=== PATIENT | female | born 1965 | race American Indian/Alaskan Native ===

== ENCOUNTER 2016-11-02 08:59 | Day surgery (SDC) | payer BC ==
[2016-11-02 10:16] VITALS: BMI 25.1
[2016-11-02] MEDS ORDERED: MethylPREDNISolone Depo 40 mg/ml Inj ONE (11:49)
[2016-11-02] MEDS ORDERED: Ketamine 50 mg/ml Inj (10 ml) ONE (11:50)
[2016-11-02] MEDS ORDERED: Propofol 10 mg/ml Inj (20 ML) ONE (11:50)
[2016-11-02] MEDS ORDERED: Midazolam 2 MG/2 ML VIAL ONE (11:50)
[2016-11-02] MEDS ORDERED: Iohexol 300 10 ML ONE (11:50)
[2016-11-02] MEDS ORDERED: Lactated Ringer's 1,000 ML IV ONE ×2 (12:00)
[2016-11-02] MEDS: Bupivacaine HCl 0.25% PF (30 ml) Inj ONE ×2 (12:19→12:25)
[2016-11-02] MEDS: Lidocaine 1% Inj (20ml) ONE ×2 (12:19→12:25)
[2016-11-02] MEDS ORDERED: DiphenhydrAMINE 50 mg/ml Inj IVP PRN (12:55)
[2016-11-02] MEDS ORDERED: HYDROmorphone 0.5 mg/0.5 ml ISec IVP PRN (12:55)
[2016-11-02] MEDS ORDERED: HYDROmorphone 0.5 mg/0.5 ml ISec ONE (12:56)
[2016-11-02 13:08] VITALS: RESP 18
[2016-11-02] MEDS ORDERED: HYDROmorphone 0.5 mg/0.5 ml ISec IVP ONE ×5 (13:15→14:05)
--- NOTE | 2016-11-02 13:18 | OP ---
PROCEDURE DATE: 11/02/2016 PREOPERATIVE DIAGNOSIS: Chronic lumbar laminectomy pain syndrome. POSTOPERATIVE DIAGNOSES: 1. Chronic lumbar laminectomy pain syndrome. 2. Myofascial pain syndrome. PROCEDURE: 1. Caudal epidural steroid injection with fluoroscopy. 2. Trigger point injections x 4 in the lumbar paravertebral area. DESCRIPTION OF PROCEDURE: With the patient consent signed, she was asked to assume a prone position with pillow under her pelvis. The low back area and the sacrococcygeal area was prepped in the usual sterile fashion. The sacral cornu and sacral hiatus was palpated. Skin infiltration and incision w as done using 1% Xylocaine with 25 gauge needle. Using the needle as a guide to the sacral hiatus, a n epidural Tuohy needle 22-gauge was injected into the sacral hiatus and into the epidural space, génesis ified by loss of resistance technique and verified by injection of 1 mL of 300 Omnipaque solution. A P and lateral view of the spine was taken. Satisfied with the location of the needle and of the dye and after negative aspiration test, a solution consisting of 80 mg Depo-Medrol with 20 mL of 0.125% S ensorcaine was injected slowly into the epidural space. The needle was then withdrawn. Bandage appl ied to the area. The patient tolerated this procedure well under light IV sedation anesthesia by Dr. Fox. Sent to the recovery room in good, stable condition. Rashaun Carpio MD cc: [phone] TT: 11/02/2016 13:17:27 sn
[2016-11-02] MEDS ORDERED: Oxycodone/Acetaminophen 5/325 mg Tab PO PRN (14:15)
--- NOTE | 2016-11-02 15:02 | RAD ---
PROCEDURE: Fluoroscopy 11/02/2016 HISTORY: Pain management ; epidural injection FINDINGS: Fluoroscopic assistance provided during pain management procedure. Approximately 34.8 seconds of fluoroscopy time utilized during this procedure. Please refer to operative report for additional details.
[2016-11-02 15:16] VITALS: O2SAT 99
[2016-11-02 16:52] VITALS: BP 153/96; PULSE 84; TEMP 97.1
== END 2016-11-02 16:50 | disposition hospice, home (50) ==
LOC: H.OPSURG 08:59
PROVIDERS: ATTEND Anesthesiology
DX: M79.1 Myalgia (principal); G89.4 Chronic pain syndrome; J45.909 Unspecified asthma, uncomplicated; E66.9 Obesity, unspecified; M19.90 Unspecified osteoarthritis, unspecified site
CPT/HCPCS: 20553; 62323; J1030; J1170; J2001; J2250; J2704; J3010; J7120; Q9967

== ENCOUNTER 2017-01-25 08:34 | Day surgery (SDC) | payer BC ==
[2017-01-25 09:03] VITALS: RESP 18; BMI 27.8
[2017-01-25] MEDS ORDERED: Propofol 10 mg/ml Inj (20 ML) ONE (11:39)
[2017-01-25] MEDS ORDERED: MethylPREDNISolone Depo 40 mg/ml Inj ONE ×2 (11:46→13:32)
[2017-01-25] MEDS ORDERED: Iohexol 300 10 ML ONE (11:47)
[2017-01-25] MEDS ORDERED: Bupivacaine HCl 0.25% PF (30 ml) Inj ONE (11:47)
[2017-01-25] MEDS ORDERED: Lidocaine 1% Inj (20ml) ONE (11:47)
[2017-01-25] MEDS ORDERED: Lidocaine 1% Inj (20ml) IV ONE (12:10)
[2017-01-25] MEDS ORDERED: MethylPREDNISolone Depo 40 mg/ml Inj IM ONE (12:10)
[2017-01-25] MEDS ORDERED: Iohexol 300 10 ML IJ ONE ×2 (12:10)
[2017-01-25] MEDS ORDERED: Bupivacaine HCl 0.5% PF (30 ml) Inj IJ ONE ×2 (12:10)
[2017-01-25] MEDS ORDERED: Lactated Ringer's 1,000 ML IV SCH (12:27)
[2017-01-25] MEDS: HYDROmorphone 0.5 mg/0.5 ml ISec IVP PRN ×4 (12:40→13:25)
[2017-01-25] MEDS ORDERED: Lactated Ringer's 1,000 ML IV ONE (13:35)
--- NOTE | 2017-01-25 13:38 | RAD ---
PROCEDURE: Fluoroscopy up to 1 hr. HISTORY: PAIN MANAGEMENT COMPARISON: None TECHNIQUE: Standard protocol for this study/examination. FINDINGS: Total fluoroscopic time (continuous mode) utilized during the procedure: 16.2 IMPRESSION: Submitted images from the current procedure: 6.0
[2017-01-25 15:27] VITALS: O2SAT 97
[2017-01-25 17:05] VITALS: BP 121/56; PULSE 69; TEMP 97.5
--- NOTE | 2017-01-26 01:13 | OP ---
PROCEDURE DATE: 01/25/2017 PREOPERATIVE DIAGNOSIS: Chronic lumbar laminectomy pain syndrome. POSTOPERATIVE DIAGNOSIS: Chronic lumbar laminectomy pain syndrome. PROCEDURE: Caudal epidural steroid injection with fluoroscopy. DESCRIPTION OF PROCEDURE: The patient's consent signed. She was asked to assume prone position with a pillow under her pelvis. The buttocks and coccygeal area were prepped in the usual sterile fashion. The sacral hiatus was palpated. Skin and subcutaneous anesthesia was done using 1% Xylocaine with 25-gauge needle into the sacral hiatus. Using a 20-gauge Tuohy epidural needle, the needle was inserted into the sacral hiatus and into the epidural space. With the aid of loss of resistance technique, verified by injection of 6 mL of Omnipaque-300 solution. AP and lateral view of the spine was taken, and after satisfied with the position of the needle and after a negative aspiration, solution consisting of 15 mL of 0.25% Sensorcaine with 80 mg of Depo-Medrol was injected slowly into the epidural space. The needle was then withdrawn and Band-Aid applied to the area. The patient tolerated the procedure well under the IV sedation anesthesia by Dr. Miranda. She was then sent to the recovery room in good and stable condition. Rashaun Carpio MD
== END 2017-01-25 18:10 | disposition home or self-care (01) ==
LOC: H.OPSURG 08:34
PROVIDERS: ATTEND Anesthesiology
DX: M54.5 Low back pain (principal); J45.909 Unspecified asthma, uncomplicated; F41.9 Anxiety disorder, unspecified
CPT/HCPCS: 62322; J1030; J1170; J2001; J2704; J7120; Q9967

== ENCOUNTER 2017-04-26 14:43 | Inpatient (IN) | payer BC, MEDICARE ==
--- NOTE | 2017-04-26 14:57 | ED PDOC ---
HPI:STROKE - Time Time: 14:25 - Historian Historian: Patient (and nursing in recovery) - Chief Complaint Chief Complaint: Weakness, Facial droop, Arm weakness, Leg weakness - Onset Date: 04/26/17 Time: 14:25 - Timing Timing: Currently Symptomatic - Context Context: Other (patient was in this facility receiving a sacral epidural) - Location Locate right:: Upper extremity Locate left: Face - TPA Positive for Contraindication: Yes Reason tPA is not being Administered: epidural and unclear if seizure as discussed with neurology Dr. Munoz - Notes: Notes:: 51yo female with past medical history of chronic pain, CVA and anxiety per prior records, brought to the ED for evaluation of a possible stroke with onset at 14:25. Patient accompanied by nurse who reports the patient was in this facility for a sacral epidural, was normal and interacting well. She states the patient was given Ketamine and when she came to, she was normal with no neurological deficits. Nurse then states at 14:25 she noticed a left lower facial droop as well as right upper extremity weakness. Per patient's prior records, there is a questionable history of right sided upper and lower extremities weakness. NIHSS Stroke Scale - Date/Time Evaluation Performed Date Performed: 04/26/17 Time Performed: 15:07 When Was NIHSS Performed: Baseline - How Severe is the Stroke Level of Consciousness: 0=Alert LOC to Questions: 0=Both comments correct LOC to commands: 0=Obeys both correctly Best Gaze: 0=Normal Visual: 0=No visual loss Facial: 2=Partial (lower face paralysis) Motor Arm - Left: 1=Drift noted before 10 sec Motor Arm - Right: 0=No drift Motor Leg - Left: 2=Falls before 5 sec Motor Leg - Right: 2=Falls before 5 sec Limb Ataxia: 2=Present both Sensory: 0=Normal Best Language: 0=No aphasia Dysarthia: 1=Mild to moderate slurring Extinction & Inattention (Neglect): 0=Normal, no object Score: 10 rTPA Inclusion/Exclusion - Refusal of Treatment Patient Refused Treatment: No - Inclusion Criteria for Altepase Patient is 18 years or Older: Yes The Clinical Diagnosis of Ischemic Stroke That is Causing a Potentially Disabling Neurological Deficit: No Time of Onset is Well Established to be Less Than 270 Minute Before Treatment Would Begin: Yes Risk/Benefit Discussed With Patient/Family Member Present: No Past Medical History Reviewed: Historical Data, Nursing Documentation, Vital Signs - Medical History PMH: Anxiety, Asthma, Back Problems, CVA, Depression, Migraine, Sickle Cell Disease, TIA (x3) Denies: Arthritis, CHF, COPD, HTN, Hypercholesterolemia, Hypothyroidism, Chronic Kidney Disease, Rheumatoid Arthritis - Surgical History Other surgeries: lumbar fusion and rods - Family History Family History: States: No Known Family Hx - Immunization History Hx Tetanus Toxoid Vaccination: No Hx Influenza Vaccination: No Hx Pneumococcal Vaccination: No - Home Medications Home Medications: Ambulatory Orders Medication Instructions Recorded Methadone [Methadone HCl] 20 mg PO TID 04/23/14 Alprazolam [Xanax] 2 mg PO BID 08/27/16 Oxycodone HCl [Oxycontin] 160 mg PO Q12H 08/27/16 Oxycodone HCl [Roxicodone] 60 mg PO Q6H PRN 08/27/16 Meloxicam [Mobic] 15 mg PO DAILY 04/26/17 - Allergies Allergies/Adverse Reactions: Allergies Allergy/AdvReac Type Severity Reaction Status Date / Time ketorolac Allergy Mild RASH Verified 04/26/17 15:12 ketorolac tromethamine Allergy RASH Verified 04/26/17 15:12 [From Toradol] Penicillins Allergy SWELLING Verified 04/26/17 15:12 morphine AdvReac ITCHING Verified 04/26/17 15:12 Review of Systems ROS Statement: Except As Marked, All Systems Reviewed And Found Negative Neurological: Positive for: Weakness (left upper extremity), Numbness, Change in Speech (slurred speech), Other (left lower facial droop) Physical Exam - Reviewed Nursing Documentation Reviewed: Yes Vital Signs Reviewed: Yes - Physical Exam Appears: Positive for: Uncomfortable Head Exam: Positive for: ATRAUMATIC, NORMAL INSPECTION, NORMOCEPHALIC Skin: Positive for: Normal Color, Warm Eye Exam: Positive for: Normal appearance, EOMI, PERRL ENT: Negative for: Nasal Congestion, Pharyngeal Erythema Neck: Positive for: Normal, Painless ROM, Supple Cardiovascular/Chest: Positive for: Regular Rate, Rhythm Respiratory: Positive for: Normal Breath Sounds. Negative for: Wheezing Gastrointestinal/Abdominal: Positive for: Soft. Negative for: Tenderness Back: Positive for: Normal Inspection. Negative for: L CVA Tenderness, R CVA Tenderness Extremity: Negative for: Normal ROM (decreased ROM due to pain lower extremities ), Tenderness, Pedal Edema, Deformity, Swelling Neurologic/Psych: Positive for: Alert, desktop support consultant II-XII (intact except lower facial palsy left), Oriented, Motor/Sensory Deficits (bilateral lower extremities 1/5 motor strength due to pain; right upper extremity 2/5 and left upper extremity 4 /5 motor strength), Facial Droop (left lower facial droop). Negative for: Mood/ Affect, Aphasia - Laboratory Results Result Diagrams: 04/26/17 15:01 04/26/17 15:01 Interpretation Of Abn Labs: no acute - ECG ECG: Positive for: Interpreted By Me, Viewed By Me ECG Rhythm: Positive for: Sinus Rhythm, Nonspecific Changes - Radiology X-Ray: Interpreted by Me, Viewed By Me X-Ray Interpretation: No Acute Disease - Progress ED Course And Treament: 1512: Dr. Munoz for neurology paged 1512. Message left on his cellphone. His office gave the number [phone]. 1522: Spoke with Dr. Munoz. Made aware of presentation, history, procedure performed, ketamine hx, past hx of cva, current clinical exam, past exam per notes, and all details. States pt. had epidural so can be high risk of bleed and pt. could have a seizure, so no thrombolytics at this time. Wants further eval and monitoring. Will come see pt. 1525: Dr. Carpio, who did epidural, states was a cuadal block. He states pt. has a hx of a bells palsy in the past to the left side but he did not notice any bells today. 1615: Pt. complains of back pain and her chronic pain flares. No narcotics at this time. Pending neurology eval. Spoke with Dr. Montero, who will admit. Spoke with Dr. Courtney. Will admit ICU. - Critical Care Total Time (In Min): 30 Documented Critical Care: Time excludes all time spent performint seperately billable procedures Medical Decision Making Medical Decision Making: Impression: Left lower facial droop, right upper extremity weakness; r/o CVA Plan: -- CT Head -- EKG -- Labs -- CXR Time: 1510 CT Head IMPRESSION: No acute intracranial abnormality. If there is a persistent focal neurologic deficit and an ongoing clinical concern for acute infarction, an MRI of the brain without intravenous contrast would be a more sensitive modality for evaluation of hyperacute/acute ischemic infarction. Important findings were discussed with Dr. Colunga in the ER on 04/26/2017 at 3: 10 p.m. Scribe Attestation: Documented by Rina Courtney acting as a scribe for Guy Colunga MD Provider Scribe Attestation: All medical record entries made by the Scribe were at my direction and personally dictated by me. I have reviewed the chart and agree that the record accurately reflects my personal performance of the history, physical exam, medical decision making, and the department course for this patient. I have also personally directed, reviewed, and agree with the discharge instructions and disposition. Disposition - Clinical Impression Clinical Impression: CVA (cerebral vascular accident), Acute weakness - Patient ED Disposition Is Patient to be Admitted: Yes Counseled Patient/Family Regarding: Studies Performed, Diagnosis - Disposition Disposition Time: 16:16 Condition: SERIOUS - Pt Status Changed To: Hospital Disposition Of: Inpatient - Admit Certification Admit to Inpatient:: After my assessment, the patient will require hospitalization for at least two midnights. This is because of the severity of symptoms shown, intensity of services needed, and/or the medical risk in this patient being treated as an outpatient. - POA Present On Arrival: None Core Measure Indicators: Code Stroke
[2017-04-26 15:01] VITALS: BMI 25.7
[2017-04-26 15:13] LABS: BASO % 0.3 % (0.0-2.0); EOS # 0.2 K/uL (0.0-0.7); EOS % 7.3 % (0.0-4.0); HEMATOCRIT 33.8 % (34.0-47.0); LYMPH # 1.1 K/uL (1.0-4.3); LYMPH % 33.2 % (20.0-40.0); MEAN CELL VOLUME 73.6 fl (81.0-99.0); MEAN CORPUSCULAR HEMOGLOBIN 22.6 pg (27.0-31.0); MEAN CORPUSCULAR HGB CONC 30.7 g/dL (33.0-37.0); MEAN PLATELET VOLUME 9.8 fl (7.2-11.7); MONO # 0.3 K/uL (0.0-0.8); MONO % 7.9 % (0.0-10.0); NEUT # 1.7 K/uL (1.8-7.0); NEUT % 51.3 % (50.0-75.0); NRBC % 0.2 % (0.0-0.0); RED CELL DISTRIBUTION WIDTH 17.1 % (11.5-14.5); WHITE BLOOD COUNT 3.4 K/uL (4.8-10.8)
--- NOTE | 2017-04-26 15:13 | CT ---
PROCEDURE: CT HEAD WITHOUT CONTRAST. HISTORY: code stroke COMPARISON: None available. TECHNIQUE: Axial computed tomography images were obtained through the head/brain without intravenous contrast. Radiation dose: Total exam DLP = 1345.01 mGy-cm. This CT exam was performed using one or more of the following dose reduction techniques: Automated exposure control, adjustment of the mA and/or kV according to patient size, and/or use of iterative reconstruction technique. FINDINGS: HEMORRHAGE: No intracranial hemorrhage. BRAIN: Allen-white matter differentiation is preserved. There is no mass, mass effect or abnormal extra-axial fluid collection. There is no territorial infarction. VENTRICLES: The ventricles are normal in size, shape and configuration. CALVARIUM: The skull base and calvarium are normal. PARANASAL SINUSES: Predominantly clear. MASTOID AIR CELLS: The right mastoid air cells are clear. The left mastoid air cells are underdeveloped. OTHER FINDINGS: None. IMPRESSION: No acute intracranial abnormality. If there is a persistent focal neurologic deficit and an ongoing clinical concern for acute infarction, an MRI of the brain without intravenous contrast would be a more sensitive modality for evaluation of hyperacute/acute ischemic infarction. Important findings were discussed with Dr. Colunga in the ER on 04/26/2017 at 3:10 p.m.
[2017-04-26 15:24] LABS: ALB/GLOB RATIO 1.1 (1.0-2.1); ALKALINE PHOSPHATASE 95 U/L (38-126); ALT/SGPT 28 U/L (9-52); AST/SGOT 26 U/L (14-36); BILIRUBIN,TOTAL 0.4 mg/dl (0.2-1.3); BLOOD UREA NITROGEN 12 mg/dl (7-17); CALCIUM 8.8 mg/dL (8.4-10.2); CARBON DIOXIDE 26 mmol/L (22-30); CHLORIDE 108 mmol/L (98-107); CHOLESTEROL 195 mg/dL (0-199); GFR AFRICAN-AMERICAN > 60; GLUCOSE,RANDOM 101 mg/dL (65-105); POTASSIUM 4.5 MMOL/L (3.6-5.0); SODIUM 142 mmol/l (132-148); TOTAL PROTEIN 8.1 G/DL (6.3-8.2)
[2017-04-26 15:26] LABS: PARTIAL THROMBOPLASTIN TIME 32.8 Seconds (25.6-37.1)
[2017-04-26] MEDS ORDERED: Albuterol-Ipratrop 3 mg / 0.5 (3 ml) UD ONE (15:43)
[2017-04-26] MEDS ORDERED: Albuterol-Ipratrop 3 mg / 0.5 (3 ml) UD IH STA (15:48)
[2017-04-26] MEDS ORDERED: Albuterol-Ipratrop 3 mg / 0.5 (3 ml) UD INH STA (15:48)
--- NOTE | 2017-04-26 16:27 | RAD ---
HISTORY: cva eval COMPARISON: 07/18/2015 FINDINGS: LUNGS: No active pulmonary disease. PLEURA: No significant pleural effusion identified, no pneumothorax apparent. CARDIOVASCULAR: No radiographic findings to suggest acute or significant cardiovascular disease. OSSEOUS STRUCTURES: No significant abnormalities. VISUALIZED UPPER ABDOMEN: Normal. OTHER FINDINGS: None. IMPRESSION: No active disease. No significant interval change compared to the prior examination(s). Concordant results with the preliminary interpretation rendered by the emergency department physician procedure.
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
[2017-04-27 06:45] LABS: ALB/GLOB RATIO 1.1 (1.0-2.1); ALKALINE PHOSPHATASE 95 U/L (38-126); ALT/SGPT 21 U/L (9-52); AST/SGOT 19 U/L (14-36); BILIRUBIN,TOTAL 0.3 mg/dl (0.2-1.3); BLOOD UREA NITROGEN 10 mg/dl (7-17); CALCIUM 9.3 mg/dL (8.4-10.2); CARBON DIOXIDE 26 mmol/L (22-30); CHLORIDE 105 mmol/L (98-107); CHOLESTEROL 215 mg/dL (0-199); GFR AFRICAN-AMERICAN > 60; GLUCOSE,RANDOM 129 mg/dL (65-105); HEMATOCRIT 33.2 % (34.0-47.0); LYMPH # 0.8 K/uL (1.0-4.3); MEAN CELL VOLUME 72.8 fl (81.0-99.0); MEAN CORPUSCULAR HGB CONC 31.6 g/dL (33.0-37.0); MEAN PLATELET VOLUME 10.2 fl (7.2-11.7); MONO # 0.2 K/uL (0.0-0.8); MONO % 3.6 % (0.0-10.0); NEUT # 3.6 K/uL (1.8-7.0); NEUT % 78.4 % (50.0-75.0); NRBC % 0.2 % (0.0-0.0); POTASSIUM 4.2 MMOL/L (3.6-5.0); RED CELL DISTRIBUTION WIDTH 16.7 % (11.5-14.5); SODIUM 142 mmol/l (132-148); TOTAL PROTEIN 7.8 G/DL (6.3-8.2); WHITE BLOOD COUNT 4.6 K/uL (4.8-10.8)
[2017-04-27 07:15] LABS: THYROID STIMULATING HORMONE 0.14 mIU/ML (0.46-4.68)
--- NOTE | 2017-04-27 11:19 | CARD ---
APPROVED REPORT EKG Measurement Heart [id number] <Conclusion> Normal sinus rhythm T wave abnormality, consider anterolateral ischemia Abnormal ECG
--- NOTE | 2017-04-27 15:35 | CP.PCM.PN ---
Subjective - Date & Time of Evaluation Date of Evaluation: 04/27/17 Time of Evaluation: 15:15 - Subjective Subjective: Patient evaluated per request primary team due to inadequate pain control. Patient has s/p caudal epidural and trigger point injections in OR 04/26/17 with extensive history of chronic pain. Discussed with Dr Vizcarra; at present recommendations to place patient on oxycontin 80 mg q12h, dilaudid 2 mg IV q4h prn. May change dilaudid frequency to 2 mg q3h should her pain control remain inadequate. Objective - Vital Signs/Intake and Output Vital Signs (last 24 hours): Temp Pulse Resp BP Pulse Ox 98.4 F 89 17 112/75 97 04/27/17 08:00 04/27/17 08:00 04/27/17 08:00 04/27/17 08:00 04/27/17 08:00 Intake and Output: 04/27/17 04/27/17 06:59 18:59 Intake Total 360 Output Total 800 Balance -440 - Medications Medications: Current Medications Acetaminophen (Tylenol 325mg Tab) 650 mg PO Q6 PRN PRN Reason: Headache Alprazolam (Xanax) 2 mg PO BID [facility] Last Admin: 04/27/17 10:16 Dose: 2 mg Famotidine (Pepcid) 40 mg PO HS [facility] Last Admin: 04/26/17 21:09 Dose: 40 mg Hydromorphone HCl (Dilaudid) 1 mg IVP Q4 PRN PRN Reason: Pain, moderate (4-7) Last Admin: 04/27/17 14:19 Dose: 1 mg - Labs Labs: 04/27/17 05:00 04/27/17 05:00 PT 11.7 Seconds (9.8-13.1) 04/26/17 15:01 INR 1.0 (0.9-1.2) 04/26/17 15:01 APTT 32.8 Seconds (25.6-37.1) 04/26/17 15:01
[2017-04-27 17:35] LABS: FOLATE 4.7 ng/mL
[2017-04-27] MEDS: oxyCODONE 40 mg ER Tab (oxyCONTIN) PO SCH (20:47)
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
--- NOTE | 2017-04-28 07:39 | CP.PCM.HP ---
History of Present Illness - History of Present Illness History of Present Illness: This is a 51 y/o female admitted for acute left lower sided facial droop and right upper weakness after epidural injection with ketamine as sedation. She has a hx of left Alvarez's palsy. Past Patient History - Infectious Disease Hx of Infectious Diseases: None - Past Medical History & Family History Past Medical History?: Yes - Past Social History Smoking Status: Never Smoked - CARDIAC Hx Cardiac Disorders: No - PULMONARY Hx Respiratory Disorders: Yes - NEUROLOGICAL Hx Neurological Disorder: Yes - HEENT Hx HEENT Problems: Yes - RENAL Hx Chronic Kidney Disease: No - ENDOCRINE/METABOLIC Hx Endocrine Disorders: No - HEMATOLOGICAL/ONCOLOGICAL Hx AIDS: No Hx Human Immunodeficiency Virus (HIV): No - INTEGUMENTARY Hx Dermatological Problems: No - MUSCULOSKELETAL/RHEUMATOLOGICAL Hx Falls: No - GASTROINTESTINAL Hx Gastrointestinal Disorders: Yes Hx Ulcer: Yes - GENITOURINARY/GYNECOLOGICAL Hx Genitourinary Disorders: No - PSYCHIATRIC Hx Substance Use: No - SURGICAL HISTORY Hx Surgeries: Yes Hx Section: Yes (X2) Hx Herniorrhaphy: Yes (umbilical, bilateral inguinal) Hx Hysterectomy: Yes Hx Musculoskeletal Surgery: Yes (Spinal sx) Hx Orthopedic Surgery: Yes (multiple back and knee surgeries) Other/Comment: EPIDURALS;HYSYERECTOMY;BACK SURGERY. 4 back surgeries and 2 knee surgeries - ANESTHESIA Hx Anesthesia: Yes Hx Anesthesia Reactions: No Hx Malignant Hyperthermia: No Meds Allergies/Adverse Reactions: Allergies Allergy/AdvReac Type Severity Reaction Status Date / Time ketorolac Allergy Mild RASH Verified 04/26/17 15:12 ketorolac tromethamine Allergy RASH Verified 04/26/17 15:12 [From Toradol] Penicillins Allergy SWELLING Verified 04/26/17 15:12 morphine AdvReac ITCHING Verified 04/26/17 15:12 Results - Vital Signs Recent Vital Signs: Last Vital Signs Temp 97.8 F 04/28/17 01:37 EDT Pulse 72 04/28/17 01:37 EDT Resp 20 04/28/17 01:37 EDT BP 120/81 04/28/17 01:37 EDT Pulse Ox 98 04/28/17 01:37 EDT - Labs Result Diagrams: 04/27/17 05:00 04/27/17 05:00 Labs: Laboratory Results - last 24 hr 04/27/17 04/27/17 04/27/17 05:00 05:00 05:00 25-OH Vitamin D Total < 12.8 L Folate 4.7 RPR Nonreactive
[2017-04-28] MEDS: oxyCODONE 40 mg ER Tab (oxyCONTIN) PO SCH ×2 (08:56→20:15)
--- NOTE | 2017-04-28 15:07 | CP.PCM.PN ---
Subjective - Date & Time of Evaluation Date of Evaluation: 04/28/17 Time of Evaluation: 14:25 - Subjective Subjective: No change in her condition. She is no more a CVA patient as this has been ruled out as explained before and it is due to Radiculopathy and the CVA Symptoms look functional Objective - Vital Signs/Intake and Output Vital Signs (last 24 hours): Temp Pulse Resp BP Pulse Ox 98.1 F 65 20 100/68 93 L 04/28/17 09:00 04/28/17 09:00 04/28/17 09:00 04/28/17 09:00 04/28/17 09:00 Intake and Output: 04/28/17 04/28/17 06:59 18:59 Output Total 1475 Balance -1475 - Medications Medications: Current Medications Acetaminophen (Tylenol 325mg Tab) 650 mg PO Q6 PRN PRN Reason: Headache Alprazolam (Xanax) 2 mg PO BID [facility] Last Admin: 04/28/17 08:56 Dose: 2 mg Famotidine (Pepcid) 40 mg PO HS [facility] Last Admin: 04/27/17 21:41 Dose: 40 mg Hydromorphone HCl (Dilaudid) 2 mg IVP Q4 PRN PRN Reason: Pain, severe (8-10) Last Admin: 04/28/17 14:11 Dose: 2 mg Oxycodone HCl (Oxycontin Extended Release Tab) 80 mg PO Q12 [facility] Last Admin: 04/28/17 08:56 Dose: 80 mg - Labs Labs: 04/27/17 05:00 04/27/17 05:00 PT 11.7 Seconds (9.8-13.1) 04/26/17 15:01 INR 1.0 (0.9-1.2) 04/26/17 15:01 APTT 32.8 Seconds (25.6-37.1) 04/26/17 15:01 Assessment and Plan (1) Acute weakness Status: Acute (2) CVA (cerebral vascular accident) Status: Resolved (3) Anxiety Status: Acute (4) Back pain Status: Acute (5) Functional neurological symptom disorder with weakness or paralysis Status: Acute
--- NOTE | 2017-04-28 16:27 | CP.PCM.CON ---
History of Present Illness - History of Present Illness History of Present Illness: Patient has very poor sleep. Has a lot of pain in the upper and lower back No dysarthria. Past Patient History - Infectious Disease Hx of Infectious Diseases: None - Past Medical History & Family History Past Medical History?: Yes - Past Social History Smoking Status: Never Smoked - CARDIAC Hx Cardiac Disorders: No - PULMONARY Hx Respiratory Disorders: Yes - NEUROLOGICAL Hx Neurological Disorder: Yes - HEENT Hx HEENT Problems: Yes - RENAL Hx Chronic Kidney Disease: No - ENDOCRINE/METABOLIC Hx Endocrine Disorders: No - HEMATOLOGICAL/ONCOLOGICAL Hx AIDS: No Hx Human Immunodeficiency Virus (HIV): No - INTEGUMENTARY Hx Dermatological Problems: No - MUSCULOSKELETAL/RHEUMATOLOGICAL Hx Falls: No - GASTROINTESTINAL Hx Gastrointestinal Disorders: Yes Hx Ulcer: Yes - GENITOURINARY/GYNECOLOGICAL Hx Genitourinary Disorders: No - PSYCHIATRIC Hx Substance Use: No - SURGICAL HISTORY Hx Surgeries: Yes Hx Section: Yes (X2) Hx Herniorrhaphy: Yes (umbilical, bilateral inguinal) Hx Hysterectomy: Yes Hx Musculoskeletal Surgery: Yes (Spinal sx) Hx Orthopedic Surgery: Yes (multiple back and knee surgeries) Other/Comment: EPIDURALS;HYSYERECTOMY;BACK SURGERY. 4 back surgeries and 2 knee surgeries - ANESTHESIA Hx Anesthesia: Yes Hx Anesthesia Reactions: No Hx Malignant Hyperthermia: No Meds Allergies/Adverse Reactions: Allergies Allergy/AdvReac Type Severity Reaction Status Date / Time ketorolac Allergy Mild RASH Verified 04/26/17 15:12 ketorolac tromethamine Allergy RASH Verified 04/26/17 15:12 [From Toradol] Penicillins Allergy SWELLING Verified 04/26/17 15:12 morphine AdvReac ITCHING Verified 04/26/17 15:12 - Medications Medications: Current Medications Acetaminophen (Tylenol 325mg Tab) 650 mg PO Q6 PRN PRN Reason: Headache Alprazolam (Xanax) 2 mg PO BID [facility] Last Admin: 04/28/17 08:56 Dose: 2 mg Famotidine (Pepcid) 40 mg PO HS [facility] Last Admin: 04/27/17 21:41 Dose: 40 mg Hydromorphone HCl (Dilaudid) 2 mg IVP Q4 PRN PRN Reason: Pain, severe (8-10) Last Admin: 04/28/17 14:11 Dose: 2 mg Oxycodone HCl (Oxycontin Extended Release Tab) 80 mg PO Q12 [facility] Last Admin: 04/28/17 08:56 Dose: 80 mg Trazodone HCl (Desyrel) 100 mg PO HS [facility] Results - Vital Signs Recent Vital Signs: Last Vital Signs Temp 98.1 F 04/28/17 09:00 Pulse 65 04/28/17 09:00 Resp 20 04/28/17 09:00 BP 100/68 04/28/17 09:00 Pulse Ox 93 L 04/28/17 09:00 - Labs Result Diagrams: 04/27/17 05:00 04/27/17 05:00 Labs: Laboratory Results - last 24 hr 04/27/17 04/27/17 05:00 05:00 25-OH Vitamin D Total < 12.8 L Folate 4.7
[2017-04-29] MEDS: oxyCODONE 40 mg ER Tab (oxyCONTIN) PO SCH ×2 (09:10→22:29)
[2017-04-29] MEDS ORDERED: Lactulose 10 gm/15 ml Syrup PO PRN (11:36)
--- NOTE | 2017-04-29 15:44 | CP.PCM.PN ---
Subjective - Date & Time of Evaluation Date of Evaluation: 04/29/17 Time of Evaluation: 15:00 - Subjective Subjective: Very low 25 hydroxy Vitamin D level, border line low normal Serum Folate. This might be a factor in causing her pain. Patient is still seeking Pain medicine. Condition was explained to her that Pain medicine may cause her complications. She is advised to seek detoxication Rehab to clean her system from narcotic drugs. Objective - Vital Signs/Intake and Output Vital Signs (last 24 hours): Temp Pulse Resp BP Pulse Ox 98.4 F 72 20 97/66 L 97 04/29/17 09:00 04/29/17 08:05 04/29/17 08:05 04/29/17 08:05 04/29/17 08:05 Intake and Output: 04/29/17 04/29/17 06:59 18:59 Output Total 540 Balance -540 - Medications Medications: Current Medications Acetaminophen (Tylenol 325mg Tab) 650 mg PO Q6 PRN PRN Reason: Headache Last Admin: 04/28/17 21:38 Dose: 650 mg Alprazolam (Xanax) 2 mg PO BID [facility] Last Admin: 04/29/17 09:10 Dose: 2 mg Calcium Carbonate (Oscal) 500 mg PO BIDWM [facility] Docusate Sodium (Colace) 100 mg PO DAILY [facility] Ergocalciferol (Drisdol 50,000 Intl Units Cap) 1 cap PO Q7D [facility] Famotidine (Pepcid) 40 mg PO HS [facility] Last Admin: 04/28/17 21:47 Dose: 40 mg Hydromorphone HCl (Dilaudid) 2 mg IVP Q4 PRN PRN Reason: Pain, severe (8-10) Last Admin: 04/29/17 12:14 Dose: 2 mg Lactulose (Enulose) 10 gm PO DAILY PRN PRN Reason: Constipation Oxycodone HCl (Oxycontin Extended Release Tab) 80 mg PO Q12 [facility] Last Admin: 04/29/17 09:10 Dose: 80 mg Trazodone HCl (Desyrel) 100 mg PO HS [facility] Last Admin: 04/28/17 22:01 Dose: 100 mg - Labs Labs: 04/27/17 05:00 04/27/17 05:00 PT 11.7 Seconds (9.8-13.1) 04/26/17 15:01 INR 1.0 (0.9-1.2) 04/26/17 15:01 APTT 32.8 Seconds (25.6-37.1) 04/26/17 15:01 Assessment and Plan (1) Acute weakness Status: Acute (2) CVA (cerebral vascular accident) Status: Resolved (3) Anxiety Status: Acute (4) Back pain Status: Acute (5) Functional neurological symptom disorder with weakness or paralysis Status: Acute
[2017-04-29] MEDS ORDERED: Ergocalciferol 50,000 Intl Units Cap PO SCH (15:45)
[2017-04-30] MEDS: oxyCODONE 40 mg ER Tab (oxyCONTIN) PO SCH ×2 (09:00→21:10)
--- NOTE | 2017-04-30 20:40 | CP.PCM.PN ---
Subjective - Date & Time of Evaluation Date of Evaluation: 04/30/17 Time of Evaluation: 20:35 - Subjective Subjective: Lasha will be discharged home soon. there is a recommendation to have Psychiatry consult to send her to Rehab for detoxication. Objective - Vital Signs/Intake and Output Vital Signs (last 24 hours): Temp Pulse Resp BP Pulse Ox 98.4 F 84 18 98/71 L 96 04/30/17 16:50 04/30/17 16:50 04/30/17 16:50 04/30/17 16:50 04/30/17 16:50 - Medications Medications: Current Medications Acetaminophen (Tylenol 325mg Tab) 650 mg PO Q6 PRN PRN Reason: Headache Last Admin: 04/28/17 21:38 Dose: 650 mg Alprazolam (Xanax) 2 mg PO BID [facility] Last Admin: 04/30/17 09:00 Dose: 2 mg Calcium Carbonate (Oscal) 500 mg PO BIDWM [facility] Last Admin: 04/30/17 17:19 Dose: 500 mg Docusate Sodium (Colace) 100 mg PO DAILY [facility] Last Admin: 04/30/17 09:00 Dose: 100 mg Ergocalciferol (Drisdol 50,000 Intl Units Cap) 1 cap PO Q7D [facility] Last Admin: 04/29/17 17:22 Dose: 1 cap Famotidine (Pepcid) 40 mg PO HS [facility] Last Admin: 04/29/17 22:29 Dose: 40 mg Hydromorphone HCl (Dilaudid) 2 mg IVP Q4 PRN PRN Reason: Pain, severe (8-10) Last Admin: 04/30/17 04:40 Dose: 2 mg Lactulose (Enulose) 10 gm PO DAILY PRN PRN Reason: Constipation Oxycodone HCl (Oxycontin Extended Release Tab) 80 mg PO Q12 [facility] Last Admin: 04/30/17 09:00 Dose: 80 mg Trazodone HCl (Desyrel) 100 mg PO HS [facility] Last Admin: 04/29/17 22:30 Dose: 100 mg - Labs Labs: 04/27/17 05:00 04/27/17 05:00 PT 11.7 Seconds (9.8-13.1) 04/26/17 15:01 INR 1.0 (0.9-1.2) 04/26/17 15:01 APTT 32.8 Seconds (25.6-37.1) 04/26/17 15:01 Assessment and Plan (1) Acute weakness Status: Acute (2) CVA (cerebral vascular accident) Status: Resolved (3) Anxiety Status: Acute (4) Back pain Status: Acute (5) Functional neurological symptom disorder with weakness or paralysis Status: Acute
--- NOTE | 2017-05-01 09:55 | CP.PCM.PN ---
Subjective - Date & Time of Evaluation Date of Evaluation: 05/01/17 Time of Evaluation: 09:00 - Subjective Subjective: Patient is well known to me from previous visits to the hospital. She's a chronic pain patient of Dr. Carpio'jessy. 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 I spoke with Dr. Carpio on Saturday, when she had to be admitted after epidural injection due to AMS and r/o CVA. She has since been cleared by neurology. At home she takes Oxycontin 80mg, Methadone, and Roxicodone 30mg for breakthrough pain. During previous admissions, she would require Dilaudid IV from 2mg to 6mg for pain, although she hasn't been admitted for a while. I have discussed with Dr. Carpio regarding her in-hospital course. She will have an outpatient follow-up with Dr. Carpio upon discharge. Objective - Vital Signs/Intake and Output Vital Signs (last 24 hours): Temp Pulse Resp BP Pulse Ox 99.2 F 105 H 20 125/68 96 05/01/17 07:50 05/01/17 07:50 05/01/17 07:50 05/01/17 07:50 05/01/17 07:50 - Medications Medications: Current Medications Acetaminophen (Tylenol 325mg Tab) 650 mg PO Q6 PRN PRN Reason: Headache Last Admin: 04/28/17 21:38 Dose: 650 mg Alprazolam (Xanax) 2 mg PO BID [facility] Last Admin: 04/30/17 09:00 Dose: 2 mg Calcium Carbonate (Oscal) 500 mg PO BIDWM [facility] Last Admin: 04/30/17 17:19 Dose: 500 mg Docusate Sodium (Colace) 100 mg PO DAILY [facility] Last Admin: 04/30/17 09:00 Dose: 100 mg Ergocalciferol (Drisdol 50,000 Intl Units Cap) 1 cap PO Q7D [facility] Last Admin: 04/29/17 17:22 Dose: 1 cap Famotidine (Pepcid) 40 mg PO HS [facility] Last Admin: 04/30/17 21:10 Dose: 40 mg Hydromorphone HCl (Dilaudid) 2 mg IVP Q4 PRN PRN Reason: Pain, severe (8-10) Last Admin: 04/30/17 04:40 Dose: 2 mg Lactulose (Enulose) 10 gm PO DAILY PRN PRN Reason: Constipation Oxycodone HCl (Oxycontin Extended Release Tab) 80 mg PO Q12 [facility] Last Admin: 04/30/17 21:10 Dose: 80 mg Trazodone HCl (Desyrel) 100 mg PO HS [facility] Last Admin: 04/30/17 21:11 Dose: 100 mg - Labs Labs: 04/27/17 05:00 04/27/17 05:00 PT 11.7 Seconds (9.8-13.1) 04/26/17 15:01 INR 1.0 (0.9-1.2) 04/26/17 15:01 APTT 32.8 Seconds (25.6-37.1) 04/26/17 15:01
[2017-05-01] MEDS: oxyCODONE 40 mg ER Tab (oxyCONTIN) PO SCH ×2 (10:34→22:24)
--- NOTE | 2017-05-01 20:16 | MRI ---
History: 51 years old, female; Pain; Knee; Right; Additional info: Rle knee pain, dec rom Gender: female Age: 51 years Exam: MR right EXTREMITY JOINT LOWER Knee without contrast Comparison: MRI of the right knee was performed utilizing 1.5 Rosa magnet. Study was performed utilizing multiple pulse sequences in multiple imaging planes. Truncation of the posterior horn of the medial meniscus consistent with tear. Increased signal involving the undersurface of the posterior horn of the lateral meniscus, consistent with tear. The anterior and posterior cruciate ligaments are intact. Marked cartilage loss from the medial femoral condyle with marginal osteophyte formation. Mild cartilage loss in the lateral femoral condyle with marginal osteophyte formation. Subchondral cyst formation in medial tibial plateau. Large knee joint effusion. Medial and lateral collateral ligament complexes are intact. The patella is not dislocated. Chondromalacia patella. The medial and lateral patella retinacula are intact. 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 Large knee joint effusion. Degenerative tears of the medial and lateral menisci.
--- NOTE | 2017-05-01 21:06 | CP.PCM.PN ---
Subjective - Date & Time of Evaluation Date of Evaluation: 05/01/17 Time of Evaluation: 21:04 - Subjective Subjective: Dr Collado will follow her as an out patient. She is very risky due to her high doses of Narcotics. CVA is ruled out. Objective - Vital Signs/Intake and Output Vital Signs (last 24 hours): Temp Pulse Resp BP Pulse Ox 99.3 F 99 H 18 103/68 92 L 05/01/17 16:29 05/01/17 16:29 05/01/17 16:29 05/01/17 16:29 05/01/17 16:29 - Medications Medications: Current Medications Acetaminophen (Tylenol 325mg Tab) 650 mg PO Q6 PRN PRN Reason: Headache Last Admin: 04/28/17 21:38 Dose: 650 mg Alprazolam (Xanax) 1 mg PO BID [facility] Last Admin: 05/01/17 17:34 Dose: 1 mg Calcium Carbonate (Oscal) 500 mg PO BIDWM [facility] Last Admin: 05/01/17 17:32 Dose: 500 mg Docusate Sodium (Colace) 100 mg PO DAILY [facility] Last Admin: 05/01/17 10:33 Dose: Not Given Ergocalciferol (Drisdol 50,000 Intl Units Cap) 1 cap PO Q7D [facility] Last Admin: 04/29/17 17:22 Dose: 1 cap Famotidine (Pepcid) 40 mg PO HS [facility] Last Admin: 04/30/17 21:10 Dose: 40 mg Hydromorphone HCl (Dilaudid) 2 mg IVP Q4 PRN PRN Reason: Pain, severe (8-10) Last Admin: 05/01/17 15:31 Dose: 2 mg Lactulose (Enulose) 10 gm PO DAILY PRN PRN Reason: Constipation Oxycodone HCl (Oxycontin Extended Release Tab) 80 mg PO Q12 [facility] Last Admin: 05/01/17 10:34 Dose: Not Given Trazodone HCl (Desyrel) 100 mg PO HS [facility] Last Admin: 04/30/17 21:11 Dose: 100 mg - Labs Labs: 04/27/17 05:00 04/27/17 05:00 PT 11.7 Seconds (9.8-13.1) 04/26/17 15:01 INR 1.0 (0.9-1.2) 04/26/17 15:01 APTT 32.8 Seconds (25.6-37.1) 04/26/17 15:01 Assessment and Plan (1) Acute weakness Status: Acute (2) CVA (cerebral vascular accident) Status: Resolved (3) Anxiety Status: Acute (4) Back pain Status: Acute (5) Functional neurological symptom disorder with weakness or paralysis Status: Acute
[2017-05-02 06:40] LABS: HEMATOCRIT 33.6 % (34.0-47.0); MEAN CELL VOLUME 72.2 fl (81.0-99.0); MEAN CORPUSCULAR HEMOGLOBIN 22.8 pg (27.0-31.0); MEAN CORPUSCULAR HGB CONC 31.6 g/dL (33.0-37.0); RED CELL DISTRIBUTION WIDTH 16.3 % (11.5-14.5); WHITE BLOOD COUNT 6.5 K/uL (4.8-10.8)
[2017-05-02 07:36] LABS: BLOOD UREA NITROGEN 10 mg/dl (7-17); CALCIUM 8.9 mg/dL (8.4-10.2); CARBON DIOXIDE 30 mmol/L (22-30); CHLORIDE 102 mmol/L (98-107); GFR AFRICAN-AMERICAN > 60; GLUCOSE,RANDOM 103 mg/dL (65-105); POTASSIUM 3.8 MMOL/L (3.6-5.0); SODIUM 141 mmol/l (132-148)
[2017-05-02] MEDS: oxyCODONE 40 mg ER Tab (oxyCONTIN) PO SCH (09:50)
--- NOTE | 2017-05-02 11:21 | CP.PCM.CON ---
History of Present Illness - History of Present Illness History of Present Illness: 51 year old female seen at bedside for attending Dr. Sharif for right knee pain. Patient is clearly heavily intoxicated on her pain medication and as a result is a poor historian. She states that her knee has been hurting her for a long period of time but cannot give a specific time frame. She states that she has severe pain in the knee when she walks and that the knee will often pop out of place, forcing her to pop it back in. Patient denies any other knee problems at this time. Review of Systems - Review of Systems Review of Systems: ROS unremarkable outside HPI Past Patient History - Infectious Disease Hx of Infectious Diseases: None - Past Medical History & Family History Past Medical History?: Yes - Past Social History Smoking Status: Never Smoked - CARDIAC Hx Cardiac Disorders: No - PULMONARY Hx Respiratory Disorders: Yes - NEUROLOGICAL Hx Neurological Disorder: Yes - HEENT Hx HEENT Problems: Yes - RENAL Hx Chronic Kidney Disease: No - ENDOCRINE/METABOLIC Hx Endocrine Disorders: No - HEMATOLOGICAL/ONCOLOGICAL Hx AIDS: No Hx Human Immunodeficiency Virus (HIV): No - INTEGUMENTARY Hx Dermatological Problems: No - MUSCULOSKELETAL/RHEUMATOLOGICAL Hx Falls: No - GASTROINTESTINAL Hx Gastrointestinal Disorders: Yes Hx Ulcer: Yes - GENITOURINARY/GYNECOLOGICAL Hx Genitourinary Disorders: No - PSYCHIATRIC Hx Substance Use: No - SURGICAL HISTORY Hx Surgeries: Yes Hx Section: Yes (X2) Hx Herniorrhaphy: Yes (umbilical, bilateral inguinal) Hx Hysterectomy: Yes Hx Musculoskeletal Surgery: Yes (Spinal sx) Hx Orthopedic Surgery: Yes (multiple back and knee surgeries) Other/Comment: EPIDURALS;HYSYERECTOMY;BACK SURGERY. 4 back surgeries and 2 knee surgeries - ANESTHESIA Hx Anesthesia: Yes Hx Anesthesia Reactions: No Hx Malignant Hyperthermia: No Meds Allergies/Adverse Reactions: Allergies Allergy/AdvReac Type Severity Reaction Status Date / Time ketorolac Allergy Mild RASH Verified 04/26/17 15:12 ketorolac tromethamine Allergy RASH Verified 04/26/17 15:12 [From Toradol] Penicillins Allergy SWELLING Verified 04/26/17 15:12 morphine AdvReac ITCHING Verified 04/26/17 15:12 - Medications Medications: Current Medications Acetaminophen (Tylenol 325mg Tab) 650 mg PO Q6 PRN PRN Reason: Headache Last Admin: 04/28/17 21:38 Dose: 650 mg Alprazolam (Xanax) 1 mg PO BID [facility] Last Admin: 05/02/17 08:36 Dose: Not Given Calcium Carbonate (Oscal) 500 mg PO BIDWM [facility] Last Admin: 05/02/17 09:51 Dose: Not Given Docusate Sodium (Colace) 100 mg PO DAILY [facility] Last Admin: 05/02/17 09:51 Dose: Not Given Ergocalciferol (Drisdol 50,000 Intl Units Cap) 1 cap PO Q7D [facility] Last Admin: 04/29/17 17:22 Dose: 1 cap Famotidine (Pepcid) 40 mg PO HS [facility] Last Admin: 05/01/17 22:24 Dose: 40 mg Hydromorphone HCl (Dilaudid) 2 mg IVP Q4 PRN PRN Reason: Pain, severe (8-10) Last Admin: 05/01/17 15:31 Dose: 2 mg Lactulose (Enulose) 10 gm PO DAILY PRN PRN Reason: Constipation Oxycodone HCl (Oxycontin Extended Release Tab) 80 mg PO Q12 [facility] Last Admin: 05/02/17 09:50 Dose: Not Given Trazodone HCl (Desyrel) 100 mg PO HS [facility] Last Admin: 05/01/17 22:23 Dose: 100 mg Physical Exam - Constitutional Appears: No Acute Distress - Extremities Exam Additional comments: Patient only able to bend right knee roughly 10 degrees on examination with pain WB not tolerated per patient and not attempted due to patients intoxicated state - Neurological Exam Neurological exam: Altered Results - Vital Signs Recent Vital Signs: Last Vital Signs Temp 98.5 F 05/02/17 08:21 Pulse 89 05/02/17 08:21 Resp 20 05/02/17 08:21 BP 126/82 05/02/17 00:00 Pulse Ox 96 05/02/17 08:21 - Labs Result Diagrams: 05/02/17 05:55 05/02/17 05:55 Labs: Laboratory Results - last 24 hr 05/02/17 05/02/17 05:55 05:55 WBC 6.5 RBC 4.65 Hgb 10.6 L Hct 33.6 L MCV 72.2 L MCH 22.8 L MCHC 31.6 L RDW 16.3 H Plt Count 146 Sodium 141 Potassium 3.8 Chloride 102 Carbon Dioxide 30 Anion Gap 13 BUN 10 Creatinine 0.6 L Est GFR ( Amer) > 60 Est GFR (Non-Af Amer) > 60 Random Glucose 103 Calcium 8.9 Assessment & Plan - Assessment and Plan (Free Text) Assessment: 51 year old female seen at bedside for attedind Dr. Sharif for right knee pain Plan: Patient seen and evaluated at bedside MRI reviewed: Tricompartmental DJD, knee joint effusion, medial and lateral degenerative tears of the menisci Patient to have xray today Dr. Sharif will follow up - Date & Time Date: 05/02/17 Time: 11:23
[2017-05-02] MEDS ORDERED: Menthol/Methyl Salicylate Oinment TOP PRN (11:38)
--- NOTE | 2017-05-02 16:18 | CP.PCM.PN ---
Subjective - Date & Time of Evaluation Date of Evaluation: 05/02/17 Time of Evaluation: 10:15 - Subjective Subjective: Patient seen and examined with Dr. Montero. Patient appears intoxicated, slow to respond to questions, somnolent, arousable States she has severe knee pain impeding her ability to participate in PT. Medication list reviewed. Will d/c xanax, dilaudid, oxycodone 80mg BID Start Oxycodone 20mg BID. MRI of knee reviewed, awaiting evaluation by ortho. Discussed with patient importance of participation in PT. She cannot be in bed sleeping. Instructed to be out of bed, sitting in chair, walking as tolerated. Objective - Vital Signs/Intake and Output Vital Signs (last 24 hours): Temp Pulse Resp BP Pulse Ox 98.5 F 89 20 126/82 96 05/02/17 08:21 05/02/17 08:21 05/02/17 08:21 05/02/17 00:00 05/02/17 08:21 - Medications Medications: Current Medications Acetaminophen (Tylenol 325mg Tab) 650 mg PO Q6 PRN PRN Reason: Headache Last Admin: 04/28/17 21:38 Dose: 650 mg Calcium Carbonate (Oscal) 500 mg PO BIDWM [facility] Last Admin: 05/02/17 09:51 Dose: Not Given Camphor/Menthol (Bengay) 1 applic TOP QID PRN PRN Reason: Pain, moderate (4-7) Docusate Sodium (Colace) 100 mg PO DAILY [facility] Last Admin: 05/02/17 09:51 Dose: Not Given Ergocalciferol (Drisdol 50,000 Intl Units Cap) 1 cap PO Q7D [facility] Last Admin: 04/29/17 17:22 Dose: 1 cap Famotidine (Pepcid) 40 mg PO HS [facility] Last Admin: 05/01/17 22:24 Dose: 40 mg Lactulose (Enulose) 10 gm PO DAILY PRN PRN Reason: Constipation Oxycodone HCl (Oxycontin Extended Release Tab) 20 mg PO Q12 [facility] Trazodone HCl (Desyrel) 50 mg PO HS [facility] - Labs Labs: 05/02/17 05:55 05/02/17 05:55 PT 11.7 Seconds (9.8-13.1) 11/03/17 15:01 INR 1.0 (0.9-1.2) 04/26/17 15:01 APTT 32.8 Seconds (25.6-37.1) 04/26/17 15:01 - Constitutional Appears: Other (appears to be intoxicated) - Head Exam Head Exam: ATRAUMATIC, NORMAL INSPECTION, NORMOCEPHALIC - Respiratory Exam Respiratory Exam: NORMAL BREATHING PATTERN - Cardiovascular Exam Cardiovascular Exam: REGULAR RHYTHM - Neurological Exam Neurological Exam: Awake - Psychiatric Exam Psychiatric exam: Depressed - Skin Skin Exam: Dry, Intact Additional comments: knees with braces on Assessment and Plan (1) Acute weakness Status: Acute (2) Knee pain Status: Acute - Assessment and Plan (Free Text) Assessment: 51 year old female admitted due to suspected CVA, ruled out. Has severe pain of right knee, unable to stand or ambulate today. She appears intoxicated on her current pain control regimen. Neurology is following. She takes high doses at home. Will decrease medications today. Encourage participation in PT. She is for MRI today of knee. Ortho consult for further input.
[2017-05-02] MEDS: oxyCODONE 20 mg ER Tab (oxyCONTIN) PO SCH (22:03)
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
[2017-05-03] MEDS: oxyCODONE 20 mg ER Tab (oxyCONTIN) PO SCH ×2 (10:45→21:54)
--- NOTE | 2017-05-03 11:33 | RAD ---
PROCEDURE: Radiographs of the Right Shoulder HISTORY: R shoulder pain COMPARISON: No prior. FINDINGS: BONES: No evidence of acute displaced fracture nor dislocation. Fracture. JOINTS: Minor degenerative changes right acromioclavicular joint. Questionable small osteophyte arising from the inferomedial aspect right humeral head SOFT TISSUES: No abnormal soft tissue calcifications are identified OTHER FINDINGS: None. IMPRESSION: No evidence of acute displaced fracture nor dislocation. Minor degenerative changes right acromioclavicular joint. Questionable small osteophyte arising from the inferomedial aspect right humeral head
--- NOTE | 2017-05-03 15:27 | RAD ---
PROCEDURE: Bilateral Knee Radiographs. HISTORY: knee pain COMPARISON: None. FINDINGS: BONES: Right Knee: No acute fracture. Proliferative hypertrophic changes emanating from the femoral condyle and tibial plateau regions. Left Knee: No acute fracture. Proliferative hypertrophic changes emanating from the femoral condyle and tibial plateau regions. JOINTS: Right Knee: Medial compartment narrowing, of no appreciable lateral compartment or patellofemoral degenerative change Left knee: Severe medial compartment narrowing, subchondral sclerosis and subchondral cyst formation. SOFT TISSUES: Right Knee: Normal. Left Knee: Normal. JOINT EFFUSION: Right Knee: None. Left Knee: None. OTHER FINDINGS: None. IMPRESSION: Bilateral degenerative changes. No findings.
--- NOTE | 2017-05-03 16:38 | CP.PCM.CON ---
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 Orthopaedics consulted for evaluation and tx of right knee and shoulder pain. Pt states she has had knee and shoulder pain in the past, however they have become progressively worse. she has right knee pain that is worse with ambulation and movement. Pt states she has painful and limited range of motion of right shoulder. Pain is worse with overhead activity. Pt denies any injury or trauma to right knee or right shoulder. She reports feeling RUE weakness and occasional paresthesia. Past Patient History - Infectious Disease Hx of Infectious Diseases: None - Past Medical History & Family History Past Medical History?: Yes - Past Social History Smoking Status: Never Smoked - CARDIAC Hx Cardiac Disorders: No - PULMONARY Hx Respiratory Disorders: Yes - NEUROLOGICAL Hx Neurological Disorder: Yes - HEENT Hx HEENT Problems: Yes - RENAL Hx Chronic Kidney Disease: No - ENDOCRINE/METABOLIC Hx Endocrine Disorders: No - HEMATOLOGICAL/ONCOLOGICAL Hx AIDS: No Hx Human Immunodeficiency Virus (HIV): No - INTEGUMENTARY Hx Dermatological Problems: No - MUSCULOSKELETAL/RHEUMATOLOGICAL Hx Falls: No - GASTROINTESTINAL Hx Gastrointestinal Disorders: Yes Hx Ulcer: Yes - GENITOURINARY/GYNECOLOGICAL Hx Genitourinary Disorders: No - PSYCHIATRIC Hx Substance Use: No - SURGICAL HISTORY Hx Surgeries: Yes Hx Section: Yes (X2) Hx Herniorrhaphy: Yes (umbilical, bilateral inguinal) Hx Hysterectomy: Yes Hx Musculoskeletal Surgery: Yes (Spinal sx) Hx Orthopedic Surgery: Yes (multiple back and knee surgeries) Other/Comment: EPIDURALS;HYSYERECTOMY;BACK SURGERY. 4 back surgeries and 2 knee surgeries - ANESTHESIA Hx Anesthesia: Yes Hx Anesthesia Reactions: No Hx Malignant Hyperthermia: No Meds Allergies/Adverse Reactions: Allergies Allergy/AdvReac Type Severity Reaction Status Date / Time ketorolac Allergy Mild RASH Verified 04/26/17 15:12 ketorolac tromethamine Allergy RASH Verified 04/26/17 15:12 [From Toradol] Penicillins Allergy SWELLING Verified 04/26/17 15:12 morphine AdvReac ITCHING Verified 04/26/17 15:12 - Medications Medications: Current Medications Acetaminophen (Tylenol 325mg Tab) 650 mg PO Q6 PRN PRN Reason: Headache Last Admin: 05/02/17 17:10 Dose: 650 mg Calcium Carbonate (Oscal) 500 mg PO BIDWM [facility] Last Admin: 05/03/17 10:52 Dose: 500 mg Camphor/Menthol (Bengay) 1 applic TOP QID PRN PRN Reason: Pain, moderate (4-7) Docusate Sodium (Colace) 100 mg PO DAILY [facility] Last Admin: 05/03/17 10:52 Dose: 100 mg Ergocalciferol (Drisdol 50,000 Intl Units Cap) 1 cap PO Q7D [facility] Last Admin: 04/29/17 17:22 Dose: 1 cap Famotidine (Pepcid) 40 mg PO HS [facility] Last Admin: 05/02/17 22:47 Dose: 40 mg Lactulose (Enulose) 10 gm PO DAILY PRN PRN Reason: Constipation Oxycodone HCl (Oxycontin Extended Release Tab) 20 mg PO Q12 [facility] Last Admin: 05/03/17 10:45 Dose: 20 mg Trazodone HCl (Desyrel) 50 mg PO HS [facility] Last Admin: 05/02/17 22:47 Dose: 50 mg Physical Exam - Constitutional Appears: Well, No Acute Distress - Respiratory Exam Respiratory Exam: Clear to Auscultation Bilateral, NORMAL BREATHING PATTERN - Cardiovascular Exam Cardiovascular Exam: REGULAR RHYTHM, RRR - Extremities Exam Additional comments: Right Shoulder: +TTP at AC joint, bicipital groove, and posterior joint line ROM limited due to pain Active fwd flexion to 70deg, passively to 90deg N/V intact distally +Neer's impingment test +Obriens test +cross over test Radial and ulnar pulses wnl Right knee: Effusion:1+ +ttp at medial and lateral joint line and daniel-patella region ROM limited due to pain- flexion 0-90deg +medial and lateral Nghia test Stable to valgus and varus stress test N/V intact distally Distal pulses wnl Results - Vital Signs Recent Vital Signs: Last Vital Signs Temp 98.8 F 05/03/17 08:34 Pulse 83 05/03/17 08:34 Resp 18 05/03/17 08:34 BP 90/57 L 05/03/17 08:34 Pulse Ox 94 L 05/03/17 08:34 - Labs Result Diagrams: 05/02/17 05:55 05/02/17 05:55 Assessment & Plan - Assessment and Plan (Free Text) Assessment: 51 yo F with chronic back pain and hx of left Alvarez's palsy presents with right knee and right shoulder pain Xray images of right shoulder are neg for any acute fx or dislocation Xrays reveal OA of right shoulder Xrays of right knee reveal severe OA, more prominent at medial joint line MRI w/o contrast right knee reveals tricompartmental OA with degenrative medial and lateral meniscus tears Plan: Imaging reveals OA of right shoulder and right knee, with degenerative tears of medial and lat meniscus right knee No acute orthopaedic sx intervention necessary at this time Pt can remain WBAT RLE and RUE Pt to f/u as outpt for further evaluation and tx of right knee and right shoulder pain
[2017-05-03 16:50] VITALS: RESP 20
--- NOTE | 2017-05-03 18:35 | CP.PCM.PN ---
Subjective - Date & Time of Evaluation Date of Evaluation: 05/03/17 Time of Evaluation: 10:45 - Subjective Subjective: Patient seen and examined with attending. Patient more alert today, however still appears slightly intoxicated, less than yesterday. Has pain in right knee and right shoulder. Range of motion of right shoulder limited. Unable to bear weight with right lower extremity. awaiting ortho consult and MRI of shoulder. XR of shoulder and knee ordered. MRI of knee reviewed and revealed : Tricompartmental osteoarthritis, most severe in involving the medial compartment. Large knee joint effusion. Degenerative tears of the medial and lateral menisci. Objective - Vital Signs/Intake and Output Vital Signs (last 24 hours): Temp Pulse Resp BP Pulse Ox 99.9 F H 103 H 20 114/74 96 05/03/17 16:49 05/03/17 16:49 05/03/17 16:49 05/03/17 16:49 05/03/17 16:49 - Medications Medications: Current Medications Acetaminophen (Tylenol 325mg Tab) 650 mg PO Q6 PRN PRN Reason: Headache Last Admin: 05/02/17 17:10 Dose: 650 mg Calcium Carbonate (Oscal) 500 mg PO BIDWM [facility] Last Admin: 05/03/17 18:22 Dose: 500 mg Camphor/Menthol (Bengay) 1 applic TOP QID PRN PRN Reason: Pain, moderate (4-7) Last Admin: 05/03/17 18:22 Dose: 1 applic Docusate Sodium (Colace) 100 mg PO DAILY [facility] Last Admin: 05/03/17 10:52 Dose: 100 mg Ergocalciferol (Drisdol 50,000 Intl Units Cap) 1 cap PO Q7D [facility] Last Admin: 04/29/17 17:22 Dose: 1 cap Famotidine (Pepcid) 40 mg PO HS [facility] Last Admin: 05/02/17 22:47 Dose: 40 mg Lactulose (Enulose) 10 gm PO DAILY PRN PRN Reason: Constipation Oxycodone HCl (Oxycontin Extended Release Tab) 20 mg PO Q12 [facility] Last Admin: 05/03/17 10:45 Dose: 20 mg Trazodone HCl (Desyrel) 50 mg PO HS [facility] Last Admin: 05/02/17 22:47 Dose: 50 mg - Labs Labs: 05/02/17 05:55 05/02/17 05:55 PT 11.7 Seconds (9.8-13.1) 04/26/17 15:01 INR 1.0 (0.9-1.2) 04/26/17 15:01 APTT 32.8 Seconds (25.6-37.1) 04/26/17 15:01 - Constitutional Appears: Other (appears mildly uncomfortable when awakened. speech more clear today) - Head Exam Head Exam: ATRAUMATIC, NORMAL INSPECTION, NORMOCEPHALIC - ENT Exam ENT Exam: Mucous Membranes Moist - Respiratory Exam Respiratory Exam: NORMAL BREATHING PATTERN - Extremities Exam Extremities Exam: absent: Full ROM Additional comments: limited range of motion of right shoulder. limited range of motion to right knee , wrapped in brace. - Neurological Exam Neurological Exam: Awake, CN II-XII Intact - Psychiatric Exam Additional comments: appears intoxicated, less than yesterday - Skin Skin Exam: Intact, Normal Color Assessment and Plan (1) Acute weakness Status: Acute (2) Knee pain Status: Acute (3) Shoulder pain, right Status: Acute - Assessment and Plan (Free Text) Assessment: 51 year old female admitted due to suspected CVA, ruled out. Has severe pain of right knee, unable to stand or ambulate today. Less intoxicated on current regimen. Neurology and pain management are following. ORtho consult appreciated. Can follow up as outpatient. MRI on knee, xr of knee, xr of shoulder reviewed. No acute surgical intervention at this time. She would benefit from continued physical therapy, and continued taper of her pain medications. She could be suffering from hyperalgesia of her pain medications, given its chronic use. Discussed importance of tapering these medications, does not appear responsive to this discussion.
--- NOTE | 2017-05-03 22:17 | CP.PCM.PN ---
Subjective - Date & Time of Evaluation Date of Evaluation: 05/03/17 Time of Evaluation: 20:15 - Subjective Subjective: Patient is still complaining of pain. Objective - Vital Signs/Intake and Output Vital Signs (last 24 hours): Temp Pulse Resp BP Pulse Ox 99.9 F H 103 H 20 114/74 96 05/03/17 16:49 05/03/17 16:49 05/03/17 16:49 05/03/17 16:49 05/03/17 16:49 - Medications Medications: Current Medications Acetaminophen (Tylenol 325mg Tab) 650 mg PO Q6 PRN PRN Reason: Headache Last Admin: 05/02/17 17:10 Dose: 650 mg Calcium Carbonate (Oscal) 500 mg PO BIDWM [facility] Last Admin: 05/03/17 18:22 Dose: 500 mg Camphor/Menthol (Bengay) 1 applic TOP QID PRN PRN Reason: Pain, moderate (4-7) Last Admin: 05/03/17 18:22 Dose: 1 applic Docusate Sodium (Colace) 100 mg PO DAILY [facility] Last Admin: 05/03/17 10:52 Dose: 100 mg Ergocalciferol (Drisdol 50,000 Intl Units Cap) 1 cap PO Q7D [facility] Last Admin: 04/29/17 17:22 Dose: 1 cap Famotidine (Pepcid) 40 mg PO HS [facility] Last Admin: 05/03/17 22:03 Dose: 40 mg Lactulose (Enulose) 10 gm PO DAILY PRN PRN Reason: Constipation Oxycodone HCl (Oxycontin Extended Release Tab) 20 mg PO Q12 [facility] Last Admin: 05/03/17 21:54 Dose: 20 mg Trazodone HCl (Desyrel) 50 mg PO HS [facility] Last Admin: 05/03/17 22:03 Dose: 50 mg - Labs Labs: 05/02/17 05:55 05/02/17 05:55 PT 11.7 Seconds (9.8-13.1) 04/26/17 15:01 INR 1.0 (0.9-1.2) 04/26/17 15:01 APTT 32.8 Seconds (25.6-37.1) 04/26/17 15:01 Assessment and Plan (1) Acute weakness Status: Acute (2) CVA (cerebral vascular accident) Status: Resolved (3) Anxiety Status: Acute (4) Back pain Status: Acute (5) Functional neurological symptom disorder with weakness or paralysis Status: Acute
[2017-05-04 07:50] VITALS: BP 108/76; PULSE 69; TEMP 98.8; O2SAT 95
--- NOTE | 2017-05-04 10:09 | CP.PCM.PN ---
Subjective - Date & Time of Evaluation Date of Evaluation: 05/04/17 Time of Evaluation: 10:00 - Subjective Subjective: Patient is much more awake Objective - Vital Signs/Intake and Output Vital Signs (last 24 hours): Temp Pulse Resp BP Pulse Ox 98.8 F 69 20 108/76 95 05/04/17 07:48 05/04/17 07:48 05/04/17 07:48 05/04/17 07:48 05/04/17 07:48 - Medications Medications: Current Medications Acetaminophen (Tylenol 325mg Tab) 650 mg PO Q6 PRN PRN Reason: Headache Last Admin: 05/02/17 17:10 Dose: 650 mg Calcium Carbonate (Oscal) 500 mg PO BIDWM [facility] Last Admin: 05/03/17 18:22 Dose: 500 mg Camphor/Menthol (Bengay) 1 applic TOP QID PRN PRN Reason: Pain, moderate (4-7) Last Admin: 05/03/17 18:22 Dose: 1 applic Docusate Sodium (Colace) 100 mg PO DAILY [facility] Last Admin: 05/03/17 10:52 Dose: 100 mg Ergocalciferol (Drisdol 50,000 Intl Units Cap) 1 cap PO Q7D [facility] Last Admin: 04/29/17 17:22 Dose: 1 cap Famotidine (Pepcid) 40 mg PO HS [facility] Last Admin: 05/03/17 22:03 Dose: 40 mg Lactulose (Enulose) 10 gm PO DAILY PRN PRN Reason: Constipation Oxycodone HCl (Oxycontin Extended Release Tab) 20 mg PO Q12 [facility] Last Admin: 05/03/17 21:54 Dose: 20 mg Trazodone HCl (Desyrel) 50 mg PO HS [facility] Last Admin: 05/03/17 22:03 Dose: 50 mg - Labs Labs: 05/02/17 05:55 05/02/17 05:55 PT 11.7 Seconds (9.8-13.1) 04/26/17 15:01 INR 1.0 (0.9-1.2) 04/26/17 15:01 APTT 32.8 Seconds (25.6-37.1) 04/26/17 15:01
[2017-05-04] MEDS: oxyCODONE 20 mg ER Tab (oxyCONTIN) PO SCH (11:14)
--- NOTE | 2017-05-05 01:35 | CP.PCM.PN ---
Subjective - Date & Time of Evaluation Date of Evaluation: 05/04/17 Time of Evaluation: 11:10 - Subjective Subjective: Patient is discharged safely and will continue her Pain treatment out of the Hospital. Objective - Vital Signs/Intake and Output Vital Signs (last 24 hours): Temp Pulse Resp BP Pulse Ox 98.8 F 69 20 108/76 95 05/04/17 07:48 05/04/17 07:48 05/04/17 07:48 05/04/17 07:48 05/04/17 07:48 - Labs Labs: 05/02/17 05:55 05/02/17 05:55 PT 11.7 Seconds (9.8-13.1) 04/26/17 15:01 INR 1.0 (0.9-1.2) 04/26/17 15:01 APTT 32.8 Seconds (25.6-37.1) 04/26/17 15:01 Assessment and Plan (1) Acute weakness Status: Acute (2) Anxiety Status: Acute (3) Back pain Status: Acute (4) Functional neurological symptom disorder with weakness or paralysis Status: Acute
--- NOTE | 2017-05-07 09:24 | EEG ---
CONDITION OF THE RECORDING: The record is obtained for a history of altered mental status and pain in her back. She developed a syncopal spell after an epidural injection. Paralysis on one side that was reversible, rule out seizures, rule out CVA, rule out TIA and the record was obtained while patient was awake, drowsy and asleep. The record was symmetrically equal on both sides with a velocity of 8 cycles per second. The waves are fairly formed, fairly organized with a posterior distribution, moderate amplitude, reactive to opening by attenuation. There were no abnormal discharges. No spikes, no polyspike, no sharp waves. No focal slowing or paroxysmal discharge. The record did not show any changes with photic stimulation. The hyperventilation was omitted. There were no changes with photic stimulation or with drowsiness or with sleep. Periods of drowsiness were seen and were remarkable for attenuation of record and theta waves during which theta waves were seen and periods of sleep during which delta waves were seen. There were eye movement artifacts, electrode artifacts, and muscle movement artifacts. In sum, this is a normal awake, drowsy and sleep EEG. There is no evidence of seizures. There is no evidence of asymmetry. Clinical correlation is recommended. Stacia Munoz MD
== END 2017-05-04 15:15 | disposition home or self-care (01) | DRG 552 ==
LOC: H.ER 14:43 → H.ERHOLD 16:14 → H.ICU/CCU 17:40 → H.MEDSURG1 04-27 11:47
PROVIDERS: ADMIT Family Medicine; ATTEND Family Medicine
DX: M54.17 Radiculopathy, lumbosacral region (principal); D57.1 Sickle-cell disease without crisis; F44.4 Conversion disorder with motor symptom or deficit; J45.909 Unspecified asthma, uncomplicated; F32.9 Major depressive disorder, single episode, unspecified; G43.909 Migraine, unspecified, not intractable, without status migrainosus; F41.9 Anxiety disorder, unspecified; G51.0 Bell's palsy; G89.29 Other chronic pain; M17.11 Unilateral primary osteoarthritis, right knee; M19.011 Primary osteoarthritis, right shoulder; Z79.1 Long term (current) use of non-steroidal anti-inflammatories (NSAID); Z86.73 Personal history of transient ischemic attack (TIA), and cerebral infarction without residual deficits; Z90.710 Acquired absence of both cervix and uterus; M25.511 Pain in right shoulder; M25.561 Pain in right knee; M54.5 Low back pain; R47.81 Slurred speech; R53.1 Weakness; R29.810 Facial weakness; M25.461 Effusion, right knee

== ENCOUNTER 2017-10-09 12:46 | Day surgery (SDC) | payer BC, MEDICARE ==
[2017-10-09 13:25] VITALS: RESP 18
[2017-10-09] MEDS ORDERED: methylPREDNISolone Depo 80 mg/ml Inj ONE (13:33)
[2017-10-09] MEDS ORDERED: Bupivacaine HCl 0.25% PF (30 ml) Inj ONE (13:34)
[2017-10-09] MEDS ORDERED: Lidocaine Hydrochloride 1% 10 ML ONE (13:35)
[2017-10-09] MEDS ORDERED: Iohexol 300 10 ML ONE (13:35)
[2017-10-09] MEDS ORDERED: Midazolam 2 MG/2 ML VIAL ONE (13:41)
[2017-10-09] MEDS ORDERED: Propofol 10 mg/ml Inj (20 ML) ONE (13:41)
[2017-10-09] MEDS ORDERED: Ketamine 50 mg/ml Inj (10 ml) ONE (13:41)
[2017-10-09] MEDS ORDERED: Lidocaine 1% (10 ml) Inj IV ONE (13:52)
[2017-10-09] MEDS ORDERED: methylPREDNISolone Depo 80 mg/ml Inj IM ONE (13:54)
[2017-10-09] MEDS ORDERED: Lactated Ringer's 1,000 ML IV ONE (14:00)
[2017-10-09] MEDS ORDERED: Oxycodone/Acetaminophen 5/325 mg Tab PO PRN (14:22)
[2017-10-09 17:03] VITALS: O2SAT 99
[2017-10-09 17:32] VITALS: BP 142/84; PULSE 82; TEMP 98.1
--- NOTE | 2017-10-10 08:41 | OP ---
PROCEDURE DATE: 10/09/2017 PREOPERATIVE DIAGNOSIS: Chronic lumbar laminectomy pain syndrome. POSTOPERATIVE DIAGNOSIS: Chronic lumbar laminectomy pain syndrome. PROCEDURE: Caudal epidural steroid injection. DESCRIPTION OF PROCEDURE: With the patient's consent signed, she was asked to assume a prone position with a pillow under her pelvis. The buttocks and coccygeal area were prepped in the usual sterile fashion. the sacral hiatus was identified and skin infiltration anesthesia was done using 1% Xylocaine with a 25-gauge needle. Using a fluoroscopy guidance, the needle guided into the sacral hiatus, inserted into the epidural space with the aid of loss of resistance technique, verified by injection of 3 mL of Isovue 300 solution. After satisfied with the location of the dye and needle and after a negative aspiration test, a solution consisting of 80 mg Depo-Medrol with 15 mL of 0.25% Sensorcaine was injected into the epidural space. Procedure was done under IV sedation anesthesia. Rashaun Carpio MD
--- NOTE | 2017-10-11 18:38 | RAD ---
PROCEDURE: Intraoperative Fluoroscopy. HISTORY: PAIN MANAGEMENT FINDINGS: Fluoroscopic assistance was provided for sacral epidural pain management. Please refer to the operative report from AINSLEY Kennedy. Twelve 20 second hypervascular time was utilized with a total cumulative radiation dose of 4.25 mGy.
== END 2017-10-09 17:45 | disposition home or self-care (01) ==
LOC: H.OPSURG 12:46
PROVIDERS: ATTEND Anesthesiology
DX: M54.5 Low back pain (principal); G89.4 Chronic pain syndrome
CPT/HCPCS: 62322; J1040; J2250; J2270; J2704; J7120; Q9967

== ENCOUNTER 2018-07-08 06:48 | Inpatient (IN) | payer BC, MEDICARE ==
[2018-07-08 08:26] VITALS: BMI 26.3
[2018-07-08] MEDS ORDERED: Lactated Ringer's 1,000 ML IV ONE (09:15)
[2018-07-08 09:33] LABS: BASO % 0.7 % (0.0-2.0); EOS % 1.1 % (0.0-4.0); HEMOGLOBIN 10.2 g/dL (12.0-16.0); LYMPH # 1.7 K/uL (1.0-4.3); LYMPH % 42.2 % (20.0-40.0); MEAN CELL VOLUME 75.6 fl (81.0-99.0); MEAN CORPUSCULAR HEMOGLOBIN 23.3 pg (27.0-31.0); MEAN CORPUSCULAR HGB CONC 30.9 g/dL (33.0-37.0); MEAN PLATELET VOLUME 10.8 fl (7.2-11.7); MONO # 0.3 K/uL (0.0-0.8); NEUT # 1.9 K/uL (1.8-7.0); NRBC % 0.2 % (0.0-0.0); RBC 4.38 Mil/uL (3.80-5.20); WHITE BLOOD COUNT 4.1 K/uL (4.8-10.8)
[2018-07-08 09:40] LABS: INR 1.1; PROTHROMBIN TIME 12.3 Seconds (9.8-13.1)
[2018-07-08 09:42] LABS: PARTIAL THROMBOPLASTIN TIME 31.5 Seconds (25.6-37.1)
--- NOTE | 2018-07-08 09:42 | CP.PCM.HP ---
History of Present Illness - History of Present Illness History of Present Illness: Orthopedic consult/H&P: Dr. Sharif Patient is a 53 y/o female who presents for elective R TKA. The patient has chronic bilateral knee pain, right greater than left for many years. She tried and failed conservative means with many years of oral medications, physical therapy and intra-articular injections. She has history of knee arthroscopy in the past. Her symptoms had exacerbated following a slip and fall injury recently. She denies any radiation of pain/numbness/tingling. She also denies CP/SOB/N/V/D/fever/dysuria/melena. Present on Admission - Present on Admission Any Indicators Present on Admission: No Review of Systems - Review of Systems All systems: reviewed and no additional remarkable complaints except Review of Systems: as per HPI Past Patient History - Infectious Disease Hx of Infectious Diseases: None - Past Medical History & Family History Past Medical History?: Yes - Past Social History Smoking Status: Never Smoked Alcohol: None Drugs: Denies - CARDIAC Hx Cardiac Disorders: No Hx Congestive Heart Failure: No Hx Hypercholesterolemia: No Hx Hypertension: No - PULMONARY Hx Respiratory Disorders: Yes Hx Asthma: Yes Hx Chronic Obstructive Pulmonary Disease (COPD): No - NEUROLOGICAL Hx Neurological Disorder: Yes HX Cerebrovascular Accident: Yes Hx Migraine: Yes Hx Transient Ischemic Attacks (TIA): Yes (x3) Other/Comment: [place] palsy - HEENT Hx HEENT Problems: Yes Other/Comment: wears glasses. difficulty hearing right ear - RENAL Hx Chronic Kidney Disease: No Hx Renal Failure: No - ENDOCRINE/METABOLIC Hx Endocrine Disorders: No Hx Diabetes Mellitus Type 1: No Hx Diabetes Mellitus Type 2: No Hx Hypothyroidism: No - HEMATOLOGICAL/ONCOLOGICAL Hx Blood Disorders: Yes Hx AIDS: No Hx Blood Transfusions: Yes Hx Blood Transfusion Reaction: No Hx Human Immunodeficiency Virus (HIV): No Hx Sickle Cell Disease: Yes - INTEGUMENTARY Hx Dermatological Problems: No - MUSCULOSKELETAL/RHEUMATOLOGICAL Hx Musculoskeletal Disorders: Yes Hx Arthritis: No Hx Back Pain: Yes Hx Falls: No Hx Herniated Disk: Yes Hx Rheumatoid Arthritis: No Other/Comment: LEG PAIN - GASTROINTESTINAL Hx Gastrointestinal Disorders: Yes Hx Ulcer: Yes - GENITOURINARY/GYNECOLOGICAL Hx Genitourinary Disorders: No - PSYCHIATRIC Hx Psychophysiologic Disorder: Yes Hx Anxiety: Yes Hx Depression: Yes Hx Emotional Abuse: No Hx Physical Abuse: No Hx Substance Use: No - SURGICAL HISTORY Hx Surgeries: Yes Hx Section: Yes (X2) Hx Herniorrhaphy: Yes (umbilical, bilateral inguinal) Hx Hysterectomy: Yes Hx Musculoskeletal Surgery: Yes (Spinal sx) Hx Orthopedic Surgery: Yes (multiple back and knee surgeries) Other/Comment: EPIDURALS;HYSYERECTOMY;BACK SURGERY. 4 back surgeries and 2 knee surgeries - ANESTHESIA Hx Anesthesia: Yes Hx Anesthesia Reactions: No Hx Malignant Hyperthermia: No Has any member of the family had a problem w/ anesthesia?: No Meds Allergies/Adverse Reactions: Allergies Allergy/AdvReac Type Severity Reaction Status Date / Time ketorolac Allergy Mild RASH Verified 07/07/18 17:56 ketorolac tromethamine Allergy RASH Verified 07/07/18 17:56 [From Toradol] Penicillins Allergy SWELLING Verified 07/07/18 17:56 morphine AdvReac ITCHING Verified 07/07/18 17:56 Physical Exam - Constitutional Appears: Well, No Acute Distress - Eye Exam Eye Exam: EOMI, Normal appearance, PERRL - ENT Exam ENT Exam: Mucous Membranes Moist - Respiratory Exam Respiratory Exam: NORMAL BREATHING PATTERN - Cardiovascular Exam Cardiovascular Exam: +S1, +S2 - GI/Abdominal Exam GI & Abdominal Exam: Soft. absent: Tenderness - Extremities Exam Additional comments: R knee: mild swelling and effusion arthroscopy portals well healed limited ROM 2nd to pain sensation intact SP/DP/TN motor intact EHL/FHL/TA/G pedal pulses intact calves soft NT b/l - Neurological Exam Neurological exam: Alert, Oriented x3 - Psychiatric Exam Psychiatric exam: Normal Affect, Normal Mood - Skin Skin Exam: Normal Color, Warm Results - Vital Signs Recent Vital Signs: Last Vital Signs Temp 97.7 F 07/08/18 07:30 Pulse 80 07/08/18 07:30 Resp 20 07/08/18 07:30 BP 120/79 07/08/18 07:30 Pulse Ox 99 07/08/18 07:30 - Labs Result Diagrams: 07/08/18 09:20 Labs: Laboratory Results - last 24 hr 07/08/18 09:20 WBC 4.1 L RBC 4.38 Hgb 10.2 L Hct 33.1 L MCV 75.6 L D MCH 23.3 L MCHC 30.9 L RDW 17.0 H Plt Count 218 MPV 10.8 Neut % (Auto) 48.0 L Lymph % (Auto) 42.2 H [place] % (Auto) 8.0 Eos % (Auto) 1.1 Baso % (Auto) 0.7 Neut # (Auto) 1.9 Lymph # (Auto) 1.7 [place] # (Auto) 0.3 Eos # (Auto) 0.0 Baso # (Auto) 0.0 Assessment & Plan (1) Osteoarthritis of right knee Assessment and Plan: -OR today for R TKA with Dr. Sharif -Risks/benefits/alternatives explained to patient who understands and agrees to proceed with procedure above -NPO -Medical clearance in chart -above d/w Dr. Sharif in agreement Status: Acute
[2018-07-08 10:49] LABS: ALB/GLOB RATIO 1.1 (1.0-2.1); ALBUMIN 3.9 g/dL (3.5-5.0); ALT/SGPT 25 U/L (9-52); AST/SGOT 16 U/L (14-36); BLOOD UREA NITROGEN 20 mg/dl (7-17); CALCIUM 8.9 mg/dL (8.4-10.2); GFR NON-AFRICAN AMERICAN > 60
[2018-07-08] MEDS ORDERED: Absorbable Gelatin Sponge Size 12-7 ONE (16:05)
[2018-07-08] MEDS ORDERED: Bupivacaine 0.5% Inj(30mL) ONE (16:05)
[2018-07-08] MEDS ORDERED: EPINEPHrine 1 mg/ml (1:1000) Inj ONE (16:05)
[2018-07-08] MEDS ORDERED: Thrombin Topical 5,000 Int Units Spray Kit ONE (16:06)
[2018-07-08] MEDS ORDERED: Bacitracin Ointment 30 GM TUBE ONE (16:06)
[2018-07-08] MEDS ORDERED: ceFAZolin IV 1 gm in Dextrose 0 GM/0 ML BAG IVPB ONE (16:06)
[2018-07-08] MEDS ORDERED: Midazolam 2 MG/2 ML VIAL ONE ×2 (16:55→17:30)
[2018-07-08] MEDS ORDERED: Propofol 10 mg/ml Inj (20 ML) ONE (16:55)
[2018-07-08] MEDS ORDERED: Rocuronium 10 mg/ml (5 ml) ONE ×2 (16:55→17:30)
[2018-07-08] MEDS ORDERED: Lidocaine 1% 5ml Abboject ONE (16:56)
[2018-07-08] MEDS ORDERED: Lidocaine 4% (Laryng-O-Jet) Kit MM ONE ×2 (16:56→17:31)
[2018-07-08] MEDS ORDERED: Succinylcholine 200 mg/10 ml Inj IV ONE (16:59)
[2018-07-08] MEDS ORDERED: Sevoflurane - Inhalation Anesthetic Liq (250 ml) ONE (17:31)
[2018-07-08] MEDS ORDERED: Bisacodyl 5mg EC Tab PO PRN (17:33)
[2018-07-08] MEDS ORDERED: oxyCODONE 40 mg ER Tab (oxyCONTIN) PO SCH (17:45)
[2018-07-08] MEDS ORDERED: Sodium Chloride 0.9% 1,000 ML IV SCH (17:45)
--- NOTE | 2018-07-08 19:16 | PCM.SURG1 ---
Surgeon's Initial Post Op Note - Surgeon's Notes Surgeon: Eddie Sharif MD Dope House Operator Helper: Ken Poole PA-C; Quentin Mckenna PA-C Type of Anesthesia: General Endo Pre-Operative Diagnosis: Right knee OA Operative Findings: see op report Post-Operative Diagnosis: same as pre-op dx Operation Performed: R TKR Specimen/Specimens Removed: right knee bone and soft tissue Estimated Blood Loss: EBL {In ML}: 50 Date of Surgery/Procedure: 07/08/18 Time of Surgery/Procedure: 15:00
[2018-07-08] MEDS: HYDROmorphone 0.5 mg/0.5 ml ISec IVP PRN ×3 (19:34→20:10)
[2018-07-08] MEDS: Lactated Ringer's 1,000 ML IV SCH ×2 (21:03→21:20)
[2018-07-09] MEDS ORDERED: Clindamycin 600mg/50ml D5W 600 MG/50 ML VIAL IVPB SCH (00:30)
[2018-07-09] MEDS: HYDROmorphone 0.5 mg/0.5 ml ISec IVP PRN ×2 (05:04→09:14)
[2018-07-09] MEDS ORDERED: DiphenhydrAMINE 50 mg/ml Inj IVP STA (05:12)
--- NOTE | 2018-07-09 05:27 | CP.PCM.PCO ---
Physician Communication Note - Physician Communication Note Physician Communication Note: pruritis s/p abx; gave benadryl IV; held abx
[2018-07-09] MEDS: Lactated Ringer's 1,000 ML IV SCH (05:54)
[2018-07-09 07:10] LABS: BLOOD UREA NITROGEN 14 mg/dl (7-17); CALCIUM 8.7 mg/dL (8.4-10.2); GFR NON-AFRICAN AMERICAN > 60
[2018-07-09 07:18] LABS: HEMOGLOBIN 9.4 g/dL (12.0-16.0); MEAN CELL VOLUME 76.4 fl (81.0-99.0); MEAN CORPUSCULAR HEMOGLOBIN 23.1 pg (27.0-31.0); MEAN CORPUSCULAR HGB CONC 30.3 g/dL (33.0-37.0); RBC 4.07 Mil/uL (3.80-5.20); RED CELL DISTRIBUTION WIDTH 16.3 % (11.5-14.5); WHITE BLOOD COUNT 7.3 K/uL (4.8-10.8)
[2018-07-09] MEDS ORDERED: CHOLECALCIFEROL 50000 UNIT PO SCH (09:00)
[2018-07-09] MEDS: Pantoprazole 40 mg EC Tab PO SCH (09:12)
--- NOTE | 2018-07-09 09:16 | RAD ---
Date of service: 07/08/2018 PROCEDURE: Right Knee Radiographs. HISTORY: s/p RTKR COMPARISON: 05/03/2017 FINDINGS: BONES: Interval total right knee arthroplasty tibial stem cemented.-anatomical alignment suggested JOINTS: Total knee replacement JOINT EFFUSION: Present with the lucency-inferred recent surgical intervention. OTHER FINDINGS: Anterior skin emilia present IMPRESSION: Interval recent total knee replacement-no unexpected findings noted.
--- NOTE | 2018-07-09 09:23 | OP ---
PROCEDURE DATE: 07/08/2018 ATTENDING PHYSICIAN: Eddie Sharif MD MECHANICAL MAINTENANCE INSTRUCTOR: Ken Poole PA-C. PREOPERATIVE DIAGNOSIS: Right knee osteoarthritis. POSTOPERATIVE DIAGNOSIS: Right knee osteoarthritis. PROCEDURE: Right total knee replacement. IMPLANTS SIZE: DePuy Attune knee system. Size 5 tibial base plate, size 6 femur, 9-mm polyethylene insert, 32-mm patella. ANESTHESIA TYPE: General. ESTIMATED BLOOD LOSS: 100 mL. SPECIMENS: None. COMPLICATIONS: None. HISTORY: The patient with prolonged history of right knee pain progressively getting worse despite extensive conservative management, which included activity modification, injections, anti-inflammatory modification and physical therapy. X-rays had revealed advanced arthritis. Patient was indicated for total knee replacement due to continued pain and limited mobility. I had a detailed discussion with the patient in the office explaining the nature of the surgery, alternatives of surgery, risks and benefits, rehabilitation protocol and surgical markings. Risks of surgery include but not limited to continued pain, lack of motion, infection, vascular injury, DVT / PE, nerve injury including peroneal nerve dysfunction, reflex sympathetic dystrophy, compartment syndrome, unforeseen medical and/or anesthesia complications, limb loss, and even . The patient expressed an understanding of the risks and possible benefits of the procedure, and is also aware of the alternatives to surgery. PROCEDURE: Paragraph 1: On the day of the surgery, the patient was admitted to pre-operative holding area. A laterality sheet was completed confirming the correct operative site. The correct surgical knee was marked in the holding area and informed consent was signed from the patient. Once again, I reviewed the risks and benefits of the surgery with the patient in detail. These risks include but are not limited to continued pain, lack of motion, infection, vascular injury, DVT / PE, nerve injury including peroneal nerve dysfunction, reflex sympathetic dystrophy, symptomatic hardware, need for further procedure and surgeries, instability, iatrogenic fractures, compartment syndrome, unforeseen medical and/or anesthesia complications, limb loss, and even . The patient expressed an understanding of the risks and possible benefits of the procedure, also aware of the alternatives to surgery and signed the informed consent. Paragraph 2: The patient was transported to the operating room and placed in the supine position, general anesthesia was obtained. Preoperative exam revealed range of motion 0 to 120, stable through varus and valgus stress. Paragraph 3: A padded tourniquet was applied to patient's operative thigh and appropriate prophylactic antibiotics were given. The operative leg was draped and prepped in standard sterile manner. Timeout was completed, confirming patient's right knee to be the correct operative site. Using an Esmarch, the extremity was exsanguinated and tourniquet was inflated to 350 mmHg. The surgical incision markings were made using patella border, tibial tubercle, patella and quadriceps tendon. Using a 10 blade, a midline incision was made. Skin dissection was taken until the prepatellar fascia was identified and the corners of the patellar tendon were marked for proper closure at the end of the procedure. Using a fresh 10 blade, a medial parapatellar arthrotomy was performed. The knee was exposed in the standard manner. The deep MCL was elevated for exposure, medial and lateral menisci were removed, ACL and PCL were also transected. The tibia was subluxed anteriorly. Paragraph 4: Planned tibial cut was made with power saw, using extra-medullary guide, perpendicular to mechanical axis of the tibia. After the cut was made, the alignment was also checked and was found to be appropriate. Tibial cut surface was measured with trial base plate and it was noted that size 5 tibial base plate was provide sufficient coverage without overhang. Tibial component was externally rotated and marked. Paragraph 5: Next, the knee was placed into 90 degrees of flexion. A drill hole was made within the femoral notch anterior to PCL insertion for placement of intramedullary femoral roya. Intramedullary femoral roya was inserted within the femoral canal and planned distal femoral cut was made. After the cut, knee was brought into full extension. Spacer blocks were used to check the extension balancing both in full extension and 30 degrees of flexion. It was found that a 9-mm trial spacer block allowed full extension with symmetric varus and valgus balancing. Paragraph 6: Next we proceed with Patella resurfacing. [place] patella width was found to be 27 mm. Using the free-hand technique the arthritic patella surface was resected. Patella was sized using the guide and it was noted that 32 mm. Patella dome button would be appropriate for the patient. Paragraph 7: Next the size of femoral component was determined using the posterior referencing guide. It was noted that a size 6 femur would be appropriate for this patient without causing any significant notching. A 4 x 1 cutting block was placed and flexion gap balancing was checked. The flexion gap was found to be symmetric to the extension gap. Anterior and posterior condyle, anterior and posterior chamfer cuts were made. Next, appropriate size box cut for femoral component was prepared using the guide. Paragraph 8: The femoral trial component was impacted onto the distal femur. Appropriate size tibial trial component was also placed on the cut surface of the tibia. Using the drill and punch, keel for tibial implant was prepared. Trial tibial tray was secured onto the tibia using pins. Different size trial polyethylene inserts were secured on to the trial tibial tray to critically assess the following parameters: Full range of motion, extension and flexion gap balancing, mid-flexion stability, anterior and posterior drawer, and patellar tracking. All parameter were found to be satisfactory with size 9-mm polyethylene insert. Paragraph 9: All the trial components were removed. Implants were opened on the back table. Cement was mixed and we proceed with cement fixation of the implants. Tibial tray, femoral component and patellar dome button were secured with cement. Polyethylene insert was secured onto the tibial tray using locking mechanism. The knee was reduced and brought into full extension. Cement was allowed to harden until final component fixation. Knee was taken through the final range of motion for stability testing, and found to be satisfactory. Paragraph 10: 60 cc of custom cocktail mixture was injected into posterior capsule, MCL, LCL, quadriceps tendon, and patellar tendon. Wound was copiously irrigated with sterile antibiotic solution using pulse lavage. Arthrotomy was closed using heavy suture and wound was closed in standard manner. Patient was extubated, transferred to stretcher and taken to the recovery room. Post-operative instructions were provided, physical therapy consult was requested along with DVT prophylaxis and appropriate pain medications. During this procedure, I was assisted by Ken Poole PA-C, who assisted in positioning the patient on the operating room table as well as transferring the patient from the operating room table to the recovery room stretcher. In addition, Ken Poole PA-C assisted me during the actual operative procedure by positioning, protecting critical neurovascular structures, exposure of the joint, and proper positioning of the implants. The presence of Ken Poole PA-C as my operative city carrier assistant was medically necessary to ensure the utmost safety of the patient in the pre, intra-, and post-operative periods. Eddie Sharif MD [facility] # [id number]
--- NOTE | 2018-07-09 10:31 | CP.PCM.PN ---
Subjective - Date & Time of Evaluation Date of Evaluation: 07/09/18 Time of Evaluation: 09:30 - Subjective Subjective: Patient seen and examined at bedside sitting with PT. 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 No acute events overnight. Denies CP/SOB/N/fever. Objective - Vital Signs/Intake and Output Vital Signs (last 24 hours): Temp Pulse Resp BP Pulse Ox 99 F 102 H 20 128/74 100 07/09/18 07:47 07/09/18 07:47 07/09/18 07:47 07/09/18 07:47 07/09/18 07:47 Intake and Output: 07/09/18 07/09/18 06:59 18:59 Intake Total 200 Balance 200 - Medications Medications: Current Medications Acetaminophen (Tylenol 325mg Tab) 650 mg PO Q6 [facility] Last Admin: 07/09/18 04:12 Dose: Not Given Alprazolam (Xanax) 2 mg PO BID PRN PRN Reason: Anxiety Last Admin: 07/09/18 05:51 Dose: 2 mg Bisacodyl (Dulcolax) 10 mg PO HS PRN PRN Reason: Constipation Diphenhydramine HCl (Benadryl) 25 mg PO Q6 PRN PRN Reason: Itching / Pruritus Last Admin: 07/09/18 09:12 Dose: 25 mg Docusate Sodium (Colace) 100 mg PO BID [facility] Last Admin: 07/09/18 09:12 Dose: 100 mg Enoxaparin Sodium (Lovenox) 40 mg SC Q24H [facility]; Protocol Hydromorphone HCl (Dilaudid) 1 mg IVP Q4 PRN PRN Reason: Pain, severe (8-10) Last Admin: 07/09/18 09:14 Dose: 1 mg Hydromorphone HCl (Dilaudid 0.2 Mg/Ml Baked And Graphite Inspector) 6 mg IV PRN PRN; Protocol PRN Reason: Pain, moderate (4-7) Last Admin: 07/09/18 06:18 Dose: 6 mg Clindamycin Phosphate (Cleocin) 600 mg in 50 mls @ 100 mls/hr IVPB Q8H [facility]; Protocol Last Admin: 07/09/18 04:20 Dose: 100 mls/hr Sodium Chloride (Sodium Chloride 0.9%) 1,000 mls @ 80 mls/hr IV .[id number] [facility] Stop: 07/09/18 18:44 Lactated Ringer's (Lactated Ringer's) 1,000 mls @ 100 mls/hr IV .Q10H [facility] Last Admin: 07/09/18 05:54 Dose: Not Given Methadone HCl (Methadone) 10 mg PO TID [facility] Last Admin: 07/09/18 09:13 Dose: 10 mg Pantoprazole Sodium (Protonix Ec Tab) 40 mg PO DAILY [facility] Last Admin: 07/09/18 09:12 Dose: 40 mg - Labs Labs: 07/09/18 05:45 07/09/18 05:45 PT 12.3 Seconds (9.8-13.1) 07/08/18 09:20 INR 1.1 07/08/18 09:20 APTT 31.5 Seconds (25.6-37.1) 07/08/18 09:20 - Extremities Exam Additional comments: R knee: Dressings CDI sensation intact SP/DP/TN motor intact EHL/FHL/TA/G pedal pulses intact calves soft NT b/l Assessment and Plan (1) Osteoarthritis of right knee Assessment & Plan: POD#1 s/p R TKA -pain control -PT/OT WBAT -DVT ppx -orthopedically stable -above d/w Dr. Sharif in agreement Status: Acute
[2018-07-09] MEDS ORDERED: Ergocalciferol 50,000 Intl Units Cap PO SCH (12:45)
[2018-07-09] MEDS ORDERED: Enoxaparin 40 mg Syringe SC SCH (18:00)
[2018-07-10 06:08] LABS: HEMOGLOBIN 8.5 g/dL (12.0-16.0); MEAN CELL VOLUME 73.7 fl (81.0-99.0); MEAN CORPUSCULAR HEMOGLOBIN 23.4 pg (27.0-31.0); MEAN CORPUSCULAR HGB CONC 31.7 g/dL (33.0-37.0); RBC 3.65 Mil/uL (3.80-5.20); RED CELL DISTRIBUTION WIDTH 16.1 % (11.5-14.5); WHITE BLOOD COUNT 6.6 K/uL (4.8-10.8)
[2018-07-10 06:38] LABS: BLOOD UREA NITROGEN 11 mg/dl (7-17); CALCIUM 8.6 mg/dL (8.4-10.2); GFR NON-AFRICAN AMERICAN > 60
[2018-07-10] MEDS: Pantoprazole 40 mg EC Tab PO SCH (08:52)
[2018-07-10] MEDS: Lactated Ringer's 1,000 ML IV SCH (12:55)
--- NOTE | 2018-07-10 12:59 | CP.PCM.PN ---
Subjective - Date & Time of Evaluation Date of Evaluation: 07/10/18 Time of Evaluation: 08:00 - Subjective Subjective: Patient complaining of knee pain. She says she still has a lot of pain but has to push through. Denies CP/SOB/dizziness. Objective - Vital Signs/Intake and Output Vital Signs (last 24 hours): Temp Pulse Resp BP Pulse Ox 98.2 F 74 18 104/67 98 07/10/18 07:39 07/10/18 10:58 07/10/18 07:39 07/10/18 07:39 07/10/18 10:58 - Medications Medications: Current Medications Acetaminophen (Tylenol 325mg Tab) 650 mg PO Q6 [facility] Last Admin: 07/10/18 12:51 Dose: 650 mg Alprazolam (Xanax) 2 mg PO BID PRN PRN Reason: Anxiety Last Admin: 07/09/18 21:42 Dose: 2 mg Bisacodyl (Dulcolax) 10 mg PO HS PRN PRN Reason: Constipation Diphenhydramine HCl (Benadryl) 25 mg PO Q6 PRN PRN Reason: Itching / Pruritus Last Admin: 07/09/18 09:12 Dose: 25 mg Docusate Sodium (Colace) 100 mg PO BID [facility] Last Admin: 07/10/18 08:53 Dose: 100 mg Enoxaparin Sodium (Lovenox) 40 mg SC Q24H [facility]; Protocol Ergocalciferol (Drisdol 50,000 Intl Units Cap) 1 cap PO Q7D [facility] Last Admin: 07/09/18 15:20 Dose: 1 cap Hydromorphone HCl (Dilaudid) 2 mg IVP Q3 PRN PRN Reason: Pain, moderate (4-7) Last Admin: 07/09/18 19:07 Dose: 2 mg Hydromorphone HCl (Dilaudid) 3 mg IVP Q3 PRN PRN Reason: Pain, severe (8-10) Last Admin: 07/10/18 12:45 Dose: 3 mg Lactated Ringer's (Lactated Ringer's) 1,000 mls @ 100 mls/hr IV .Q10H [facility] Last Admin: 07/09/18 05:54 Dose: Not Given Lactic Acid (Lac-Hydrin 12% Lotion (225 G)) 1 applic TOP TID [facility] Methadone HCl (Methadone) 10 mg PO TID [facility] Last Admin: 07/10/18 12:51 Dose: 10 mg Methylprednisolone (Solu-Medrol) 60 mg IVP ONCE ONE Stop: 07/10/18 12:35 Pantoprazole Sodium (Protonix Ec Tab) 40 mg PO DAILY [facility] Last Admin: 07/10/18 08:52 Dose: 40 mg - Labs Labs: 07/10/18 05:25 07/10/18 05:25 PT 12.3 Seconds (9.8-13.1) 07/08/18 09:20 INR 1.1 07/08/18 09:20 APTT 31.5 Seconds (25.6-37.1) 07/08/18 09:20 - Extremities Exam Additional comments: Right knee: dressing change, incision intact, dry no erythema knee stiff missing approx 8 degrees of extension, instructed in quad sets Calves soft NT neg homans sensation intact +DP/PT pulses Assessment and Plan (1) Osteoarthritis of right knee Assessment & Plan: POD#2 s/p total knee replacement ortho stable for d/c to rehab cont VTE proph with lovenox PT/OT d/w Dr. Sharif, agrees with above f/u within 10 days of discharge Status: Acute (2) Acute blood loss anemia Status: Acute (3) Vitamin D deficiency Status: Acute
[2018-07-11 06:50] LABS: HEMOGLOBIN 7.2 g/dL (12.0-16.0); MEAN CORPUSCULAR HEMOGLOBIN 23.5 pg (27.0-31.0); MEAN CORPUSCULAR HGB CONC 31.8 g/dL (33.0-37.0); RBC 3.05 Mil/uL (3.80-5.20); RED CELL DISTRIBUTION WIDTH 16.2 % (11.5-14.5); WHITE BLOOD COUNT 7.2 K/uL (4.8-10.8)
[2018-07-11 07:26] LABS: BLOOD UREA NITROGEN 15 mg/dl (7-17); GFR NON-AFRICAN AMERICAN > 60
[2018-07-11] MEDS: Pantoprazole 40 mg EC Tab PO SCH (09:48)
[2018-07-11] MEDS ORDERED: MethylPREDNISolone 40 mg Vial IVP ONE (12:03)
[2018-07-11] MEDS: oxyCODONE 10 mg ER Tab (oxyCONTIN) PO SCH ×2 (12:06→21:09)
--- NOTE | 2018-07-11 13:00 | CP.PCM.PN ---
Subjective - Date & Time of Evaluation Date of Evaluation: 07/11/18 Time of Evaluation: 07:30 - Subjective Subjective: Patient complaining of pain. She is whimpering. She denies CP/SOB/dizziness/numbness/tingling. Objective - Vital Signs/Intake and Output Vital Signs (last 24 hours): Temp Pulse Resp BP Pulse Ox 98.7 F 87 18 103/63 98 07/11/18 12:03 07/11/18 12:03 07/11/18 12:03 07/11/18 12:03 07/11/18 12:03 - Medications Medications: Current Medications Acetaminophen (Tylenol 325mg Tab) 650 mg PO Q6 [facility] Last Admin: 07/11/18 11:47 Dose: 650 mg Alprazolam (Xanax) 2 mg PO BID PRN PRN Reason: Anxiety Last Admin: 07/10/18 20:43 Dose: 2 mg Aspirin (Aspirin) 325 mg PO BID [facility] Last Admin: 07/11/18 09:56 Dose: 325 mg Diphenhydramine HCl (Benadryl) 25 mg PO Q6 PRN PRN Reason: Itching / Pruritus Last Admin: 07/09/18 09:12 Dose: 25 mg Docusate Sodium (Colace) 100 mg PO BID [facility] Last Admin: 07/11/18 09:47 Dose: 100 mg Ergocalciferol (Drisdol 50,000 Intl Units Cap) 1 cap PO Q7D [facility] Last Admin: 07/09/18 15:20 Dose: 1 cap Ferrous Sulfate (Feosol) 325 mg PO BID [facility] Last Admin: 07/11/18 09:47 Dose: 325 mg Hydromorphone HCl (Dilaudid) 2 mg PO Q4 PRN PRN Reason: Pain, moderate (4-7) Last Admin: 07/10/18 22:00 Dose: 2 mg Hydromorphone HCl (Dilaudid) 4 mg PO Q4 PRN PRN Reason: Pain, severe (8-10) Last Admin: 07/11/18 05:17 Dose: 4 mg Lactated Ringer's (Lactated Ringer's) 1,000 mls @ 100 mls/hr IV .Q10H [facility] Last Admin: 07/10/18 12:55 Dose: 100 mls/hr Lactic Acid (Lac-Hydrin 12% Lotion (225 G)) 1 applic TOP TID [facility] Last Admin: 07/11/18 09:48 Dose: 1 applic Methadone HCl (Methadone) 10 mg PO TID [facility] Last Admin: 07/11/18 09:57 Dose: 10 mg Oxycodone HCl (Oxycontin Extended Release Tab) 10 mg PO Q12 [facility] Stop: 07/14/18 09:31 Last Admin: 07/11/18 12:06 Dose: 10 mg Pantoprazole Sodium (Protonix Ec Tab) 40 mg PO DAILY [facility] Last Admin: 07/11/18 09:48 Dose: 40 mg Sennosides (Senokot Tab) 17.2 mg PO HS [facility] Last Admin: 07/10/18 21:59 Dose: 17.2 mg - Labs Labs: 07/11/18 05:30 07/11/18 05:30 PT 12.3 Seconds (9.8-13.1) 07/08/18 09:20 INR 1.1 07/08/18 09:20 APTT 31.5 Seconds (25.6-37.1) 07/08/18 09:20 - Extremities Exam Additional comments: right knee: noted again patient can not fully extend. Will add knee immob at night incision intact, dry no erythema, no increased swelling sensation intact +Dp/PT pulses calves soft NT ne ghoamns Assessment and Plan (1) Osteoarthritis of right knee Assessment & Plan: POD#3 s/p TKR for transfusion today changed to aspirin for vte proph per Dr. Sharif d/c planning pt/ot labs in am d/w Dr. Sharif, agrees with above Status: Acute (2) Acute blood loss anemia Status: Acute (3) Vitamin D deficiency Status: Acute
--- NOTE | 2018-07-11 16:13 | PQF ---
PROVIDER RESPONSE TEXT: Pt experienced urinary retention s/p surgery. REVIEWER QUERY TEXT: Documentation Clarification Your help is requested in clarifying the following clinical documentation, if you can please further specify in the medical record and discharge summary. Please clarify if there is an associated diagnosis to go along with the nurses documentation below: The nurses notes on 07/09/18 @ 0250 hours: " Complained of discomfort in bladder and unable to void. Molina Rios made aware. Straight catheter ordered and output of 500 cc of kye urine obtained. Patient r eports relief." The patient's Clinical Indicators include: S/P Right Knee Replacement. The nurses notes on 07/09/18 @ 0250 hours: " Complained of discomfort in bladder and unable to void. Molina Rios made aware. Straight catheter ordered and output of 500 cc of kye urine obtained. Patient r eports relief." Query created by: Wendi Ravi on 07/09/2018 1:56 PM Electronically signed by: Pierre Rios 07/11/2018 4:10 PM
[2018-07-12] MEDS: Lactated Ringer's 1,000 ML IV SCH (04:00)
[2018-07-12] MEDS: Pantoprazole 40 mg EC Tab PO SCH (08:27)
[2018-07-12] MEDS: oxyCODONE 10 mg ER Tab (oxyCONTIN) PO SCH ×2 (08:37→20:23)
[2018-07-12 09:48] LABS: HEMOGLOBIN 9.1 g/dL (12.0-16.0); MEAN CELL VOLUME 78.8 fl (81.0-99.0); MEAN CORPUSCULAR HEMOGLOBIN 24.9 pg (27.0-31.0); MEAN CORPUSCULAR HGB CONC 31.6 g/dL (33.0-37.0); RBC 3.64 Mil/uL (3.80-5.20); RED CELL DISTRIBUTION WIDTH 18.4 % (11.5-14.5); WHITE BLOOD COUNT 6.5 K/uL (4.8-10.8)
[2018-07-12 09:53] LABS: BLOOD UREA NITROGEN 12 mg/dl (7-17); CALCIUM 9.2 mg/dL (8.4-10.2); GFR NON-AFRICAN AMERICAN > 60
[2018-07-12] MEDS ORDERED: Albuterol-Ipratrop 3 mg / 0.5 (3 ml) UD INH ONE (12:34)
[2018-07-12 13:25] VITALS: RESP 20
[2018-07-12 16:18] VITALS: BP 129/73; PULSE 91; TEMP 98; O2SAT 97
--- NOTE | 2018-07-13 20:25 | CP.PCM.CON ---
History of Present Illness - History of Present Illness History of Present Illness: Denia mian a 53 y/o female with hx of painful OA of both knees right greater than left who just had an elective TKR of the right knee after all conservative measures failed. She has been on pain medications, phys therapy and knee injections but to no avail and in fact her pain medication doses have increased. The sx has worsened after a recent fall. Perioperative period was unremarkable Review of Systems - Musculoskeletal Musculoskeletal: Abnormal Gait, Arthralgias Past Patient History - Infectious Disease Hx of Infectious Diseases: None - Past Medical History & Family History Past Medical History?: Yes - Past Social History Smoking Status: Never Smoked Alcohol: None Drugs: Denies - CARDIAC Hx Cardiac Disorders: No Hx Congestive Heart Failure: No Hx Hypercholesterolemia: No Hx Hypertension: No - PULMONARY Hx Respiratory Disorders: Yes Hx Asthma: Yes Hx Chronic Obstructive Pulmonary Disease (COPD): No - NEUROLOGICAL Hx Neurological Disorder: Yes HX Cerebrovascular Accident: Yes Hx Migraine: Yes Hx Transient Ischemic Attacks (TIA): Yes (x3) Other/Comment: [place] palsy - HEENT Hx HEENT Problems: Yes Other/Comment: wears glasses. difficulty hearing right ear - RENAL Hx Chronic Kidney Disease: No Hx Renal Failure: No - ENDOCRINE/METABOLIC Hx Endocrine Disorders: No Hx Diabetes Mellitus Type 1: No Hx Diabetes Mellitus Type 2: No Hx Hypothyroidism: No - HEMATOLOGICAL/ONCOLOGICAL Hx Blood Disorders: Yes Hx AIDS: No Hx Blood Transfusions: Yes Hx Blood Transfusion Reaction: No Hx Human Immunodeficiency Virus (HIV): No Hx Sickle Cell Disease: Yes - INTEGUMENTARY Hx Dermatological Problems: No - MUSCULOSKELETAL/RHEUMATOLOGICAL Hx Musculoskeletal Disorders: Yes Hx Arthritis: No Hx Back Pain: Yes Hx Falls: No Hx Herniated Disk: Yes Hx Rheumatoid Arthritis: No Other/Comment: LEG PAIN - GASTROINTESTINAL Hx Gastrointestinal Disorders: Yes Hx Ulcer: Yes - GENITOURINARY/GYNECOLOGICAL Hx Genitourinary Disorders: No - PSYCHIATRIC Hx Psychophysiologic Disorder: Yes Hx Anxiety: Yes Hx Depression: Yes Hx Emotional Abuse: No Hx Physical Abuse: No Hx Substance Use: No - SURGICAL HISTORY Hx Surgeries: Yes Hx Section: Yes (X2) Hx Herniorrhaphy: Yes (umbilical, bilateral inguinal) Hx Hysterectomy: Yes Hx Musculoskeletal Surgery: Yes (Spinal sx) Hx Orthopedic Surgery: Yes (multiple back and knee surgeries) Other/Comment: EPIDURALS;HYSYERECTOMY;BACK SURGERY. 4 back surgeries and 2 knee surgeries - ANESTHESIA Hx Anesthesia: Yes Hx Anesthesia Reactions: No Hx Malignant Hyperthermia: No Has any member of the family had a problem w/ anesthesia?: No Meds Allergies/Adverse Reactions: Allergies Allergy/AdvReac Type Severity Reaction Status Date / Time ketorolac Allergy Mild RASH Verified 07/07/18 17:56 clindamycin Allergy RASH Verified 07/10/18 07:53 ketorolac tromethamine Allergy RASH Verified 07/07/18 17:56 [From Toradol] Penicillins Allergy SWELLING Verified 07/07/18 17:56 morphine AdvReac ITCHING Verified 07/07/18 17:56 Physical Exam - Eye Exam Eye Exam: Normal appearance - ENT Exam ENT Exam: Mucous Membranes Moist - Respiratory Exam Respiratory Exam: Clear to Auscultation Bilateral - Cardiovascular Exam Cardiovascular Exam: REGULAR RHYTHM - GI/Abdominal Exam GI & Abdominal Exam: Normal Bowel Sounds - Neurological Exam Neurological exam: CN II-XII Intact - Psychiatric Exam Psychiatric exam: Normal Mood Results - Vital Signs Recent Vital Signs: Last Vital Signs Temp 98 F 07/12/18 16:18 Pulse 91 H 07/12/18 16:18 Resp 20 07/12/18 16:18 BP 129/73 07/12/18 16:18 Pulse Ox 97 07/12/18 16:18 - Labs Result Diagrams: 07/12/18 09:00 07/12/18 09:00 Assessment & Plan (1) S/P total knee replacement Status: Acute (2) Osteoarthritis of right knee Status: Acute - Assessment and Plan (Free Text) Plan: Pain medication start phys therapy in am check cbc cmp.
--- NOTE | 2018-07-13 20:30 | CP.PCM.PN ---
Subjective - Date & Time of Evaluation Date of Evaluation: 07/09/18 Time of Evaluation: 11:00 - Subjective Subjective: Patient complains of a lot of pain on the op site Noted decrease in Hgb to 9.4 Has no fever Objective - Vital Signs/Intake and Output Vital Signs (last 24 hours): Temp Pulse Resp BP Pulse Ox 98 F 91 H 20 129/73 97 07/12/18 16:18 07/12/18 16:18 07/12/18 16:18 07/12/18 16:18 07/12/18 16:18 - Labs Labs: 07/12/18 09:00 07/12/18 09:00 PT 12.3 Seconds (9.8-13.1) 07/08/18 09:20 INR 1.1 07/08/18 09:20 APTT 31.5 Seconds (25.6-37.1) 07/08/18 09:20 - Head Exam Head Exam: NORMAL INSPECTION - Eye Exam Eye Exam: Normal appearance - ENT Exam ENT Exam: Mucous Membranes Moist - Respiratory Exam Respiratory Exam: Clear to Ausculation Bilateral - Cardiovascular Exam Cardiovascular Exam: REGULAR RHYTHM - GI/Abdominal Exam GI & Abdominal Exam: Normal Bowel Sounds - Neurological Exam Neurological Exam: Awake, Oriented x3 Assessment and Plan (1) S/P total knee replacement Status: Acute (2) Osteoarthritis of right knee Status: Acute - Assessment and Plan (Free Text) Plan: Pain meds Monitor cbc ferrous stool softener. Phsy therapy
--- NOTE | 2018-07-13 20:35 | CP.PCM.PN ---
Subjective - Date & Time of Evaluation Date of Evaluation: 07/10/18 Time of Evaluation: 10:30 - Subjective Subjective: Noted further decrease in Hgb to 8.5 Denies any dizziness Still with a lot of pain Doing better with PT Objective - Vital Signs/Intake and Output Vital Signs (last 24 hours): Temp Pulse Resp BP Pulse Ox 98 F 91 H 20 129/73 97 07/12/18 16:18 07/12/18 16:18 07/12/18 16:18 07/12/18 16:18 07/12/18 16:18 - Labs Labs: 07/12/18 09:00 07/12/18 09:00 PT 12.3 Seconds (9.8-13.1) 07/08/18 09:20 INR 1.1 07/08/18 09:20 APTT 31.5 Seconds (25.6-37.1) 07/08/18 09:20 - Head Exam Head Exam: NORMAL INSPECTION - Eye Exam Eye Exam: Normal appearance - ENT Exam ENT Exam: Mucous Membranes Moist - Respiratory Exam Respiratory Exam: Clear to Ausculation Bilateral - Cardiovascular Exam Cardiovascular Exam: REGULAR RHYTHM - GI/Abdominal Exam GI & Abdominal Exam: Normal Bowel Sounds Assessment and Plan (1) S/P total knee replacement Status: Inactive (2) Osteoarthritis of right knee Status: Acute - Assessment and Plan (Free Text) Plan: Cont meds Cont tx Pain meds follow up CBC If Hgb drop to near 7 will give transfusion
--- NOTE | 2018-07-13 20:39 | CP.PCM.PN ---
Subjective - Date & Time of Evaluation Date of Evaluation: 07/11/18 Time of Evaluation: 11:00 - Subjective Subjective: Noted further decrease in Hgb to 7.2 Has slight dizziness Noted pallor Objective - Vital Signs/Intake and Output Vital Signs (last 24 hours): Temp Pulse Resp BP Pulse Ox 98 F 91 H 20 129/73 97 07/12/18 16:18 07/12/18 16:18 07/12/18 16:18 07/12/18 16:18 07/12/18 16:18 - Labs Labs: 07/12/18 09:00 07/12/18 09:00 PT 12.3 Seconds (9.8-13.1) 07/08/18 09:20 INR 1.1 07/08/18 09:20 APTT 31.5 Seconds (25.6-37.1) 07/08/18 09:20 - Head Exam Head Exam: NORMAL INSPECTION - ENT Exam ENT Exam: Mucous Membranes Moist Additional comments: pale conjunctivae and pale lips - Respiratory Exam Respiratory Exam: Clear to Ausculation Bilateral - Cardiovascular Exam Cardiovascular Exam: REGULAR RHYTHM - GI/Abdominal Exam GI & Abdominal Exam: Soft - Neurological Exam Neurological Exam: Awake, Oriented x3 Assessment and Plan (1) S/P total knee replacement Status: Inactive (2) Osteoarthritis of right knee Status: Acute - Assessment and Plan (Free Text) Plan: Cont meds Con ttx Cont pT Transfuse two units and recheck cbc in am DC plan to subacute rehab in AM
--- NOTE | 2018-07-13 20:42 | CP.PCM.DIS ---
Provider - Provider Date of Admission: 07/08/18 17:33 Attending physician: Myke Montero MD Consults: 07/08/18 17:38 Case Management Referral Routine Comment: Physician Instructions: Reason For Exam: Reason for Referral: Discharge Planning 07/09/18 08:43 Orthopedic Consult Routine Comment: Consulting Provider: Eddie Sharif Consulting Physician: Eddie Sharif Reason for Consult: tkr Time Spent in preparation of Discharge (in minutes): 30 Diagnosis - Discharge Diagnosis (1) S/P total knee replacement Status: Inactive (2) Osteoarthritis of right knee Status: Acute Hospital Course - Lab Results Lab Results: Most Recent Lab Values WBC 6.5 K/uL (4.8-10.8) 07/12/18 09:00 RBC 3.64 Mil/uL (3.80-5.20) L 07/12/18 09:00 Hgb 9.1 g/dL (12.0-16.0) L 07/12/18 09:00 Hct 28.7 % (34.0-47.0) L 07/12/18 09:00 MCV 78.8 fl (81.0-99.0) L D 07/12/18 09:00 MCH 24.9 pg (27.0-31.0) L 07/12/18 09:00 MCHC 31.6 g/dL (33.0-37.0) L 07/12/18 09:00 RDW 18.4 % (11.5-14.5) H 07/12/18 09:00 Plt Count 149 K/uL (130-400) 07/12/18 09:00 MPV 10.8 fl (7.2-11.7) 07/08/18 09:20 Neut % (Auto) 48.0 % (50.0-75.0) L 07/08/18 09:20 Lymph % (Auto) 42.2 % (20.0-40.0) H 07/08/18 09:20 [place] % (Auto) 8.0 % (0.0-10.0) 07/08/18 09:20 Eos % (Auto) 1.1 % (0.0-4.0) 07/08/18 09:20 Baso % (Auto) 0.7 % (0.0-2.0) 01/15/19 09:20 Neut # (Auto) 1.9 K/uL (1.8-7.0) 07/08/18 09:20 Lymph # (Auto) 1.7 K/uL (1.0-4.3) 07/08/18 09:20 [place] # (Auto) 0.3 K/uL (0.0-0.8) 07/08/18 09:20 Eos # (Auto) 0.0 K/uL (0.0-0.7) 07/08/18 09:20 Baso # (Auto) 0.0 K/uL (0.0-0.2) 07/08/18 09:20 PT 12.3 Seconds (9.8-13.1) 07/08/18 09:20 INR 1.1 07/08/18 09:20 APTT 31.5 Seconds (25.6-37.1) 07/08/18 09:20 Sodium 138 mmol/l (132-148) 07/12/18 09:00 Potassium 4.7 MMOL/L (3.6-5.0) 07/12/18 09:00 Chloride 101 mmol/L (98-107) 07/12/18 09:00 Carbon Dioxide 28 mmol/L (22-30) 07/12/18 09:00 Anion Gap 14 (10-20) 07/12/18 09:00 BUN 12 mg/dl (7-17) 07/12/18 09:00 Creatinine 0.5 mg/dl (0.7-1.2) L 07/12/18 09:00 Est GFR ( Amer) > 60 07/12/18 09:00 Est GFR (Non-Af Amer) > 60 07/12/18 09:00 Random Glucose 155 mg/dL (65-105) H 07/12/18 09:00 Calcium 9.2 mg/dL (8.4-10.2) 07/12/18 09:00 Total Bilirubin 0.2 mg/dl (0.2-1.3) 07/08/18 10:29 AST 16 U/L (14-36) 07/08/18 10:29 ALT 25 U/L (9-52) 07/08/18 10:29 Alkaline Phosphatase 89 U/L (38-126) 07/08/18 10:29 Total Protein 7.6 G/DL (6.3-8.2) 07/08/18 10:29 Albumin 3.9 g/dL (3.5-5.0) 07/08/18 10:29 Globulin 3.7 gm/dL (2.2-3.9) 07/08/18 10:29 Albumin/Globulin Ratio 1.1 (1.0-2.1) 07/08/18 10:29 25-OH Vitamin D Total 28.9 NG/ML (30.0-100.0) L 07/09/18 05:45 Blood Type A POSITIVE 07/11/18 12:41 Antibody Screen Negative 07/11/18 12:41 Crossmatch See Detail 07/11/18 12:41 BBK History Checked Patient has bt 07/11/18 12:41 - Hospital Course Hospital Course: This is a 53 y/o female admitted for elective TKR for worsening of painful OA of knees, recently pain increased after a fall. Perioperatie period was unremarkable however noted to have decrease in Hgb and on Jul 11 Hgb dropped to 7.2. She was given two units of PRBC and did very well. She had so much pain earlier after surgery but able to tolerate with pain meds. She had her PT and was discharged to TCU for further PT She was discharged in stable condition. Discharge Exam - Head Exam Head Exam: NORMAL INSPECTION - Eye Exam Eye Exam: Normal appearance - Respiratory Exam Respiratory Exam: Clear to PA & Lateral - Cardiovascular Exam Cardiovascular Exam: REGULAR RHYTHM - GI/Abdominal Exam GI & Abdominal Exam: Normal Bowel Sounds - Extremities Exam Additional comments: wound clean no calf swelling Discharge Plan - Follow Up Plan Condition: GOOD Disposition: REHAB FACILITY/REHAB UNIT Instructions: Osteoarthritis (DC), Total Knee Replacement (DC) Additional Instructions: discharged to TCU Referrals: Saurabh Vázquez MD [Family Provider] - Eddie Sharif MD [Staff Provider] -
== END 2018-07-12 20:49 | DRG 470 ==
LOC: H.OPSURG 06:48 → H.MEDSURG1 17:33
PROVIDERS: ADMIT Family Medicine; ATTEND Family Medicine
PROC: 0SRC0J9 Replacement of Right Knee Joint with Synthetic Substitute, Cemented, Open Approach (ICD-10-PCS; principal; 2018-07-08 19:15)
PROC: 30233N1 Transfusion of Nonautologous Red Blood Cells into Peripheral Vein, Percutaneous Approach (ICD-10-PCS; 2018-07-12)
DX: M17.0 Bilateral primary osteoarthritis of knee (principal); D62 Acute posthemorrhagic anemia; D57.1 Sickle-cell disease without crisis; J45.909 Unspecified asthma, uncomplicated; E55.9 Vitamin D deficiency, unspecified; Z86.73 Personal history of transient ischemic attack (TIA), and cerebral infarction without residual deficits; Z88.1 Allergy status to other antibiotic agents; Z88.5 Allergy status to narcotic agent; Z88.0 Allergy status to penicillin; L29.9 Pruritus, unspecified; R33.8 Other retention of urine

== ENCOUNTER 2018-07-12 20:26 | Inpatient (IN) | payer BC, OTHER ==
[2018-07-12 20:59] VITALS: BMI 26.7
[2018-07-12 22:01] VITALS: RESP 20
[2018-07-13] MEDS: Pantoprazole 40 mg EC Tab PO SCH (08:32)
[2018-07-13] MEDS ORDERED: oxyCODONE 10 mg ER Tab (oxyCONTIN) PO SCH (09:00)
--- NOTE | 2018-07-13 12:26 | CP.PCM.HP ---
History of Present Illness - History of Present Illness History of Present Illness: 53 yo female s/p elective R TKA. Admitted to TCU for further rehabilitation. Complaints of pain not well controlled. states takes oxycodone ER 80mg BID and oxycodone 30mg q6h prn and 10mg methadone tid complains of headaches/nausea occasionally no other complaints offered at this time available diagnostic data reviewed Present on Admission - Present on Admission Any Indicators Present on Admission: No Review of Systems - Review of Systems All systems: reviewed and no additional remarkable complaints except (mentioned above) Past Patient History - Infectious Disease Hx of Infectious Diseases: None - Past Medical History & Family History Past Medical History?: Yes - Past Social History Smoking Status: Never Smoked - CARDIAC Hx Cardiac Disorders: No Hx Congestive Heart Failure: No Hx Hypercholesterolemia: No Hx Hypertension: No - PULMONARY Hx Respiratory Disorders: Yes Hx Asthma: Yes Hx Chronic Obstructive Pulmonary Disease (COPD): No - NEUROLOGICAL Hx Neurological Disorder: Yes HX Cerebrovascular Accident: Yes Hx Migraine: Yes Hx Transient Ischemic Attacks (TIA): Yes (x3) Other/Comment: [place] palsy - HEENT Hx HEENT Problems: Yes Other/Comment: wears glasses. difficulty hearing right ear - RENAL Hx Chronic Kidney Disease: No Hx Renal Failure: No - ENDOCRINE/METABOLIC Hx Endocrine Disorders: No Hx Diabetes Mellitus Type 1: No Hx Diabetes Mellitus Type 2: No Hx Hypothyroidism: No - HEMATOLOGICAL/ONCOLOGICAL Hx Blood Disorders: Yes Hx AIDS: No Hx Blood Transfusions: Yes Hx Blood Transfusion Reaction: No Hx Human Immunodeficiency Virus (HIV): No Hx Sickle Cell Disease: Yes - INTEGUMENTARY Hx Dermatological Problems: No - MUSCULOSKELETAL/RHEUMATOLOGICAL Hx Musculoskeletal Disorders: Yes Hx Arthritis: No Hx Back Pain: Yes Hx Falls: Yes Hx Herniated Disk: Yes Hx Rheumatoid Arthritis: No Other/Comment: LEG PAIN - GASTROINTESTINAL Hx Gastrointestinal Disorders: Yes Hx Ulcer: Yes - GENITOURINARY/GYNECOLOGICAL Hx Genitourinary Disorders: No - PSYCHIATRIC Hx Psychophysiologic Disorder: Yes Hx Anxiety: Yes Hx Depression: Yes Hx Emotional Abuse: No Hx Physical Abuse: No Hx Substance Use: No - SURGICAL HISTORY Hx Surgeries: Yes Hx Section: Yes (X2) Hx Herniorrhaphy: Yes (umbilical, bilateral inguinal) Hx Hysterectomy: Yes Hx Musculoskeletal Surgery: Yes (Spinal sx) Hx Orthopedic Surgery: Yes (multiple back and knee surgeries) Other/Comment: EPIDURALS;HYSYERECTOMY;BACK SURGERY. 4 back surgeries and 2 knee surgeries - ANESTHESIA Hx Anesthesia: Yes Hx Anesthesia Reactions: No Hx Malignant Hyperthermia: No Meds Allergies/Adverse Reactions: Allergies Allergy/AdvReac Type Severity Reaction Status Date / Time ketorolac Allergy Mild RASH Verified 07/07/18 17:56 clindamycin Allergy RASH Verified 07/10/18 07:53 ketorolac tromethamine Allergy RASH Verified 07/07/18 17:56 [From Toradol] Penicillins Allergy SWELLING Verified 07/07/18 17:56 morphine AdvReac ITCHING Verified 07/07/18 17:56 Physical Exam - Constitutional Appears: Non-toxic, No Acute Distress - Head Exam Head Exam: NORMAL INSPECTION - Eye Exam Eye Exam: Normal appearance - Respiratory Exam Respiratory Exam: NORMAL BREATHING PATTERN - Cardiovascular Exam Cardiovascular Exam: +S1, +S2 - GI/Abdominal Exam GI & Abdominal Exam: Soft - Neurological Exam Neurological exam: Alert, Oriented x3 - Psychiatric Exam Psychiatric exam: Normal Affect, Normal Mood - Skin Skin Exam: Normal Color, Warm Results - Vital Signs Recent Vital Signs: Last Vital Signs Temp 98.4 F 07/13/18 08:34 Pulse 88 07/13/18 08:34 Resp 20 07/13/18 08:34 BP 117/83 07/13/18 08:34 Pulse Ox 99 07/13/18 08:34 Assessment & Plan (1) S/P total knee replacement Status: Acute - Assessment and Plan (Free Text) Plan: reviewed PMPAware, patient is indeed taking oxycodone ER 80mg BID and oxycodone 30mg q6h prn and 10mg methadone tid will continue with home meds at this time monitor vitals monitor labs monitor pain control and pain med s/e zofran prn consult ortho and dr. crawford rest of plan as ordered
[2018-07-13] MEDS ORDERED: oxyCODONE 10 mg Immediate Release Tab PO PRN (12:44)
[2018-07-13] MEDS: oxyCODONE 40 mg ER Tab (oxyCONTIN) PO SCH ×4 (12:59→21:33)
[2018-07-13] MEDS ORDERED: Apap-Butalbital-Caffeine 325-50-40mg Tab PO PRN (14:04)
[2018-07-13] MEDS: oxyCODONE 10 mg Immediate Release Tab PO PRN ×2 (17:12→22:37)
[2018-07-13] MEDS: Docusate-Senna 50 mg-8.6 mg Tab PO SCH (21:35)
[2018-07-14 06:47] LABS: HEMOGLOBIN 9.3 g/dL (12.0-16.0); MEAN CELL VOLUME 78.5 fl (81.0-99.0); MEAN CORPUSCULAR HEMOGLOBIN 24.7 pg (27.0-31.0); MEAN CORPUSCULAR HGB CONC 31.5 g/dL (33.0-37.0); RBC 3.76 Mil/uL (3.80-5.20); RED CELL DISTRIBUTION WIDTH 17.9 % (11.5-14.5); WHITE BLOOD COUNT 7.6 K/uL (4.8-10.8)
[2018-07-14 06:58] LABS: ALBUMIN 3.7 g/dL (3.5-5.0); ALT/SGPT 27 U/L (9-52); AST/SGOT 20 U/L (14-36); BLOOD UREA NITROGEN 15 mg/dl (7-17); CALCIUM 9.1 mg/dL (8.4-10.2); GFR NON-AFRICAN AMERICAN > 60
[2018-07-14 07:23] LABS: INR 1.1
[2018-07-14] MEDS: oxyCODONE 40 mg ER Tab (oxyCONTIN) PO SCH ×2 (08:13→21:20)
[2018-07-14] MEDS: Pantoprazole 40 mg EC Tab PO SCH (08:14)
--- NOTE | 2018-07-14 09:54 | CP.PCM.PN ---
Subjective - Date & Time of Evaluation Date of Evaluation: 07/14/18 Time of Evaluation: 07:30 - Subjective Subjective: Patient seen and examined at bedside. On home pain medications but continues to have pain. She is eager to work through the pain with PT. Denies CP/SOB/dizziness/fever. Objective - Vital Signs/Intake and Output Vital Signs (last 24 hours): Temp Pulse Resp BP Pulse Ox 99.1 F 89 20 110/73 99 07/14/18 08:34 07/14/18 08:34 07/14/18 08:34 07/14/18 08:34 07/14/18 08:34 - Medications Medications: Current Medications Acetaminophen (Tylenol 325mg Tab) 650 mg PO Q6 PRN PRN Reason: Pain, Mild (1-3) Acetaminophen/Butalbital/Caffeine (Fioricet) 1 tab PO Q8 PRN PRN Reason: Headache Last Admin: 07/13/18 21:35 Dose: 1 tab Alprazolam (Xanax) 2 mg PO BID PRN PRN Reason: Anxiety Last Admin: 07/14/18 08:13 Dose: 2 mg Aspirin (Aspirin) 325 mg PO BID [facility] Last Admin: 07/14/18 08:16 Dose: 325 mg Diphenhydramine HCl (Benadryl) 25 mg PO Q6 PRN PRN Reason: Itching / Pruritus Docusate Sodium (Colace) 100 mg PO BID [facility] Last Admin: 07/14/18 08:17 Dose: 100 mg Ergocalciferol (Drisdol 50,000 Intl Units Cap) 1 cap PO Q7D [facility] Ferrous Sulfate (Feosol) 325 mg PO BID [facility] Last Admin: 07/14/18 08:20 Dose: 325 mg Lactic Acid (Lac-Hydrin 12% Lotion (225 G)) 1 applic TOP TID [facility] Last Admin: 07/14/18 08:18 Dose: 1 applic Methadone HCl (Methadone) 10 mg PO TID [facility] Last Admin: 07/14/18 08:13 Dose: 10 mg Ondansetron HCl (Zofran Tab) 4 mg PO Q6 PRN PRN Reason: Nausea/Vomiting Oxycodone HCl (Oxycontin Extended Release Tab) 80 mg PO Q12 [facility] Last Admin: 07/14/18 08:13 Dose: 80 mg Oxycodone HCl (Oxycodone Immediate Release Tab) 30 mg PO Q6 PRN PRN Reason: Pain, severe (8-10) Last Admin: 07/13/18 22:37 Dose: 30 mg Pantoprazole Sodium (Protonix Ec Tab) 40 mg PO DAILY [facility] Last Admin: 07/14/18 08:14 Dose: 40 mg Senna/Docusate Sodium (Senokot S 50 Mg-8.6 Mg) 2 tab PO HS [facility] Last Admin: 07/13/18 21:35 Dose: 2 tab - Labs Labs: 07/14/18 06:32 07/14/18 06:32 PT 12.0 Seconds (9.8-13.1) 07/14/18 06:32 INR 1.1 07/14/18 06:32 - Extremities Exam Additional comments: R knee: Dressings CDI Incision CDI with emilia, no drainage/erythema sensation intact SP/DP/TN motor intact EHL/FHL/TA/G pedal pulses intact calves soft NT b/l Assessment and Plan (1) S/P total knee replacement Assessment & Plan: POD#6 s/p R TKA -Dressings changed -ice and elevate -PT/OT WBAT -DVT ppx -orthopedically stable -above d/w Dr. Sharif in agreement Status: Inactive
[2018-07-14] MEDS: oxyCODONE 10 mg Immediate Release Tab PO PRN (13:00)
--- NOTE | 2018-07-14 17:52 | CP.PCM.CON ---
History of Present Illness - History of Present Illness History of Present Illness: Dr Callaway PMR consultation on Siobhan John, born 1965, who has been admitted to [facility] following a right TKR POD #6 now. She has history of chronic pain and has undergone multiple back surgeries. She also has left knee pain and will be getting a left TKR once recovered from this surgery. She has very good early ROM. Denies constipation. She has some lip swelling that began today. Aspirin has been stopped as well as Fiorecet. Review of Systems - Constitutional Constitutional: absent: Chills, Excessive Sweating, Night Sweats, Sleep Apnea - EENT Eyes: absent: Change in Vision, Itchy Eyes Ears: absent: Ear Discharge, Ear Pain Nose/Mouth/Throat: Lip Swelling (quite pronounced that began today). absent: Post Nasal Drip, Mouth Lesions - Cardiovascular Cardiovascular: absent: Chest Pain - Respiratory Respiratory: absent: Dyspnea, Hemoptysis - Gastrointestinal Gastrointestinal: absent: Constipation - Musculoskeletal Musculoskeletal: Back Pain (chronic) - Integumentary Integumentary: absent: Bleeding Lesions - Neurological Neurological: absent: Abnormal Movements, Numbness, Lack of Coordination - Psychiatric Psychiatric: absent: Panic Attacks Past Patient History - Infectious Disease Hx of Infectious Diseases: None - Past Medical History & Family History Past Medical History?: Yes - Past Social History Smoking Status: Never Smoked Chewing Tobacco Use: No Alcohol: None Drugs: Denies Home Situation {Lives}: With Family - CARDIAC Hx Cardiac Disorders: No Hx Congestive Heart Failure: No Hx Hypercholesterolemia: No Hx Hypertension: No - PULMONARY Hx Respiratory Disorders: Yes Hx Asthma: Yes Hx Chronic Obstructive Pulmonary Disease (COPD): No - NEUROLOGICAL Hx Neurological Disorder: Yes HX Cerebrovascular Accident: Yes Hx Migraine: Yes Hx Transient Ischemic Attacks (TIA): Yes (x3) Other/Comment: [place] palsy - HEENT Hx HEENT Problems: Yes Other/Comment: wears glasses. difficulty hearing right ear - RENAL Hx Chronic Kidney Disease: No Hx Renal Failure: No - ENDOCRINE/METABOLIC Hx Endocrine Disorders: No Hx Diabetes Mellitus Type 1: No Hx Diabetes Mellitus Type 2: No Hx Hypothyroidism: No - HEMATOLOGICAL/ONCOLOGICAL Hx Blood Disorders: Yes Hx AIDS: No Hx Blood Transfusions: Yes Hx Blood Transfusion Reaction: No Hx Human Immunodeficiency Virus (HIV): No Hx Sickle Cell Disease: Yes - INTEGUMENTARY Hx Dermatological Problems: No - MUSCULOSKELETAL/RHEUMATOLOGICAL Hx Musculoskeletal Disorders: Yes Hx Arthritis: No Hx Back Pain: Yes Hx Falls: Yes Hx Herniated Disk: Yes Hx Rheumatoid Arthritis: No Other/Comment: LEG PAIN - GASTROINTESTINAL Hx Gastrointestinal Disorders: Yes Hx Ulcer: Yes - GENITOURINARY/GYNECOLOGICAL Hx Genitourinary Disorders: No - PSYCHIATRIC Hx Psychophysiologic Disorder: Yes Hx Anxiety: Yes Hx Depression: Yes Hx Emotional Abuse: No Hx Physical Abuse: No Hx Substance Use: No - SURGICAL HISTORY Hx Surgeries: Yes Hx Section: Yes (X2) Hx Herniorrhaphy: Yes (umbilical, bilateral inguinal) Hx Hysterectomy: Yes Hx Musculoskeletal Surgery: Yes (Spinal sx) Hx Orthopedic Surgery: Yes (multiple back and knee surgeries) Other/Comment: EPIDURALS;HYSYERECTOMY;BACK SURGERY. 4 back surgeries and 2 knee surgeries - ANESTHESIA Hx Anesthesia: Yes Hx Anesthesia Reactions: No Hx Malignant Hyperthermia: No Meds Allergies/Adverse Reactions: Allergies Allergy/AdvReac Type Severity Reaction Status Date / Time ketorolac Allergy Mild RASH Verified 07/07/18 17:56 clindamycin Allergy RASH Verified 07/10/18 07:53 ketorolac tromethamine Allergy RASH Verified 07/07/18 17:56 [From Toradol] Penicillins Allergy SWELLING Verified 07/07/18 17:56 morphine AdvReac ITCHING Verified 07/07/18 17:56 - Medications Medications: Current Medications Acetaminophen (Tylenol 325mg Tab) 650 mg PO Q6 PRN PRN Reason: Pain, Mild (1-3) Alprazolam (Xanax) 2 mg PO BID PRN PRN Reason: Anxiety Last Admin: 07/14/18 08:13 Dose: 2 mg Diphenhydramine HCl (Benadryl) 25 mg PO Q6 PRN PRN Reason: Itching / Pruritus Last Admin: 07/14/18 14:57 Dose: 25 mg Docusate Sodium (Colace) 100 mg PO BID [facility] Last Admin: 07/14/18 17:09 Dose: 100 mg Ergocalciferol (Drisdol 50,000 Intl Units Cap) 1 cap PO Q7D [facility] Ferrous Sulfate (Feosol) 325 mg PO BID [facility] Last Admin: 07/14/18 17:10 Dose: 325 mg Lactic Acid (Lac-Hydrin 12% Lotion (225 G)) 1 applic TOP TID [facility] Last Admin: 07/14/18 17:07 Dose: 1 applic Methadone HCl (Methadone) 10 mg PO TID [facility] Last Admin: 07/14/18 17:05 Dose: 10 mg Ondansetron HCl (Zofran Tab) 4 mg PO Q6 PRN PRN Reason: Nausea/Vomiting Oxycodone HCl (Oxycontin Extended Release Tab) 80 mg PO Q12 [facility] Last Admin: 07/14/18 08:13 Dose: 80 mg Oxycodone HCl (Oxycodone Immediate Release Tab) 30 mg PO Q6 PRN PRN Reason: Pain, severe (8-10) Last Admin: 07/14/18 13:00 Dose: 30 mg Pantoprazole Sodium (Protonix Ec Tab) 40 mg PO DAILY [facility] Last Admin: 07/14/18 08:14 Dose: 40 mg Senna/Docusate Sodium (Senokot S 50 Mg-8.6 Mg) 2 tab PO HS [facility] Last Admin: 07/13/18 21:35 Dose: 2 tab Physical Exam - Constitutional Appears: Non-toxic - Head Exam Head Exam: ATRAUMATIC, NORMAL INSPECTION, NORMOCEPHALIC - Eye Exam Eye Exam: EOMI - ENT Exam ENT Exam: Mucous Membranes Moist (very swollen lower> upper lip) - Respiratory Exam Respiratory Exam: NORMAL BREATHING PATTERN. absent: Chest Wall Tenderness - Cardiovascular Exam Cardiovascular Exam: REGULAR RHYTHM - GI/Abdominal Exam GI & Abdominal Exam: absent: Firm - Extremities Exam Extremities exam: Negative for: calf tenderness (leg is swollen as expected, but can push to about 80 degrees while seated) - Neurological Exam Neurological exam: Alert, CN II-XII Intact, Oriented x3 - Psychiatric Exam Psychiatric exam: Normal Affect, Normal Mood - Skin Skin Exam: Warm Results - Vital Signs Recent Vital Signs: Last Vital Signs Temp 98.5 F 07/14/18 16:42 Pulse 96 H 07/14/18 16:42 Resp 20 07/14/18 16:42 BP 116/83 07/14/18 16:42 Pulse Ox 94 L 07/14/18 16:42 - Labs Result Diagrams: 07/14/18 06:32 07/14/18 06:32 Labs: Laboratory Results - last 24 hr 07/14/18 07/14/18 07/14/18 06:32 06:32 06:32 WBC 7.6 RBC 3.76 L Hgb 9.3 L Hct 29.5 L MCV 78.5 L MCH 24.7 L MCHC 31.5 L RDW 17.9 H Plt Count 166 PT 12.0 INR 1.1 Sodium 141 Potassium 4.0 Chloride 97 L Carbon Dioxide 31 H Anion Gap 17 BUN 15 Creatinine 0.8 Est GFR ( Amer) > 60 Est GFR (Non-Af Amer) > 60 Random Glucose 112 H Calcium 9.1 Total Bilirubin 0.4 AST 20 ALT 27 Alkaline Phosphatase 82 Total Protein 7.6 Albumin 3.7 Globulin 3.9 Albumin/Globulin Ratio 1.0 Assessment & Plan - Assessment and Plan (Free Text) Assessment: 53 year old s/p right TKR with chronic LBP + oral swelling, have given Benadryl and stopped 2 meds that are new PT/OT to continue to help increase functional independence Team conference for d/c planning Pain: controlled. On Methadone Vascular: no evidence of DVT GI: No evidence of constipation or diarrhea Patient continues to be an excellent acute rehabilitation candidate and will have continued focused pain management, wound care, PT, OT and recreational therapy to help facilitate a safe and appropriate d/c plan
[2018-07-14] MEDS: Docusate-Senna 50 mg-8.6 mg Tab PO SCH (21:19)
[2018-07-15] MEDS: oxyCODONE 10 mg Immediate Release Tab PO PRN ×3 (03:20→18:28)
[2018-07-15] MEDS: oxyCODONE 40 mg ER Tab (oxyCONTIN) PO SCH ×2 (09:11→20:43)
[2018-07-15] MEDS: Pantoprazole 40 mg EC Tab PO SCH (09:12)
--- NOTE | 2018-07-15 10:15 | RAD ---
Date of service: 07/14/2018 PROCEDURE: Right middle finger radiographs. HISTORY: Right 3rd finger injury COMPARISON: None. TECHNIQUE: AP radiograph of the right hand, as well as spot oblique and lateral images of right middle finger were obtained. FINDINGS: RIGHT MIDDLE FINGER: Right middle finger normal, without fracture of focal lesion. Remainder of the right hand (as seen on the AP view) grossly unremarkable. JOINTS: Normal. SOFT TISSUES: Normal. OTHER FINDINGS: None. IMPRESSION: Normal right middle finger radiographs.
--- NOTE | 2018-07-15 17:45 | CP.PCM.PN ---
Subjective - Date & Time of Evaluation Date of Evaluation: 07/15/18 Time of Evaluation: 17:44 - Subjective Subjective: Patient seen in the room on the CPM left TKR doing well lip swelling coming down nicely but still swelling left heel pain but not clear if from pressure or radicular will continue to follow on the CPM so I did not take out to look at heel. Objective - Vital Signs/Intake and Output Vital Signs (last 24 hours): Temp Pulse Resp BP Pulse Ox 98.5 F 94 H 20 132/78 99 07/15/18 16:20 07/15/18 16:20 07/15/18 16:20 07/15/18 16:20 07/15/18 16:20 - Medications Medications: Current Medications Acetaminophen (Tylenol 325mg Tab) 650 mg PO Q6 PRN PRN Reason: Pain, Mild (1-3) Alprazolam (Xanax) 2 mg PO BID PRN PRN Reason: Anxiety Last Admin: 07/14/18 08:13 Dose: 2 mg Diphenhydramine HCl (Benadryl) 25 mg PO Q6 PRN PRN Reason: Itching / Pruritus Last Admin: 07/14/18 14:57 Dose: 25 mg Docusate Sodium (Colace) 100 mg PO BID [facility] Last Admin: 07/15/18 17:05 Dose: 100 mg Enoxaparin Sodium (Lovenox) 40 mg SC DAILY [facility]; Protocol Ergocalciferol (Drisdol 50,000 Intl Units Cap) 1 cap PO Q7D [facility] Ferrous Sulfate (Feosol) 325 mg PO BID [facility] Last Admin: 07/15/18 17:06 Dose: 325 mg Lactic Acid (Lac-Hydrin 12% Lotion (225 G)) 1 applic TOP TID [facility] Last Admin: 07/15/18 17:19 Dose: Not Given Methadone HCl (Methadone) 10 mg PO TID [facility] Last Admin: 07/15/18 17:06 Dose: 10 mg Ondansetron HCl (Zofran Tab) 4 mg PO Q6 PRN PRN Reason: Nausea/Vomiting Oxycodone HCl (Oxycontin Extended Release Tab) 80 mg PO Q12 [facility] Last Admin: 07/15/18 09:11 Dose: 80 mg Oxycodone HCl (Oxycodone Immediate Release Tab) 30 mg PO Q6 PRN PRN Reason: Pain, severe (8-10) Last Admin: 07/15/18 13:17 Dose: 30 mg Pantoprazole Sodium (Protonix Ec Tab) 40 mg PO DAILY [facility] Last Admin: 07/15/18 09:12 Dose: 40 mg Senna/Docusate Sodium (Senokot S 50 Mg-8.6 Mg) 2 tab PO HS [facility] Last Admin: 07/14/18 21:19 Dose: 2 tab - Labs Labs: 07/14/18 06:32 07/14/18 06:32 PT 12.0 Seconds (9.8-13.1) 07/14/18 06:32 INR 1.1 07/14/18 06:32
[2018-07-15] MEDS: Docusate-Senna 50 mg-8.6 mg Tab PO SCH (21:34)
[2018-07-16] MEDS: oxyCODONE 10 mg Immediate Release Tab PO PRN ×2 (06:16→17:59)
[2018-07-16] MEDS: Enoxaparin 40 mg Syringe SC SCH ×2 (08:56→09:04)
[2018-07-16] MEDS: oxyCODONE 40 mg ER Tab (oxyCONTIN) PO SCH ×2 (08:57→20:05)
[2018-07-16] MEDS: Ergocalciferol 50,000 Intl Units Cap PO SCH (08:58)
[2018-07-16] MEDS: Pantoprazole 40 mg EC Tab PO SCH (08:58)
--- NOTE | 2018-07-16 13:48 | CP.PCM.PN ---
Subjective - Date & Time of Evaluation Date of Evaluation: 07/16/18 Time of Evaluation: 14:37 - Subjective Subjective: Patient complaining of left heel pain. She says she is doing better. Explained to patient she needs full compliance with knee immobilizer and participation in PT to maximize her outcome, and that her knee is still not straight so she needs to keep the brace on at night and keep knee extended. Objective - Vital Signs/Intake and Output Vital Signs (last 24 hours): Temp Pulse Resp BP Pulse Ox 98.6 F 88 20 101/65 100 07/16/18 08:18 07/16/18 08:18 07/16/18 08:18 07/16/18 08:18 07/16/18 08:18 Intake and Output: Patient Name / ID : AFIA BOLDEN E / [id number] Exam Date : 07/14/2018 20:42:42 ( Approved ) Study Comment : Sex / Age : F / 53Y Creator : Dictator : Rafael Armijo MD Ore Roaster : Hairmasters Manager : Rafael Armijo MD Approver2 : Report Date : My Comment : Date of service: 07/14/2018 PROCEDURE: Right middle finger radiographs. HISTORY: Right 3rd finger injury COMPARISON: None. TECHNIQUE: AP radiograph of the right hand, as well as spot oblique and lateral images of right middle finger were obtained. FINDINGS: RIGHT MIDDLE FINGER: Right middle finger normal, without fracture of focal lesion. Remainder of the right hand (as seen on the AP view) grossly unremarkable. JOINTS: Normal. SOFT TISSUES: Normal. OTHER FINDINGS: None. IMPRESSION: Normal right middle finger radiographs. - Medications Medications: Current Medications Acetaminophen (Tylenol 325mg Tab) 650 mg PO Q6 PRN PRN Reason: Pain, Mild (1-3) Alprazolam (Xanax) 2 mg PO BID PRN PRN Reason: Anxiety Last Admin: 07/16/18 06:17 Dose: 2 mg Diphenhydramine HCl (Benadryl) 25 mg PO Q6 PRN PRN Reason: Itching / Pruritus Last Admin: 07/14/18 14:57 Dose: 25 mg Docusate Sodium (Colace) 100 mg PO BID [facility] Last Admin: 07/16/18 08:58 Dose: 100 mg Enoxaparin Sodium (Lovenox) 40 mg SC DAILY [facility]; Protocol Last Admin: 07/16/18 09:04 Dose: Not Given Ergocalciferol (Drisdol 50,000 Intl Units Cap) 1 cap PO Q7D [facility] Last Admin: 07/16/18 08:58 Dose: 1 cap Ferrous Sulfate (Feosol) 325 mg PO BID [facility] Last Admin: 07/16/18 08:58 Dose: 325 mg Lactic Acid (Lac-Hydrin 12% Lotion (225 G)) 1 applic TOP TID [facility] Last Admin: 07/16/18 12:14 Dose: 1 applic Methadone HCl (Methadone) 10 mg PO TID [facility] Last Admin: 07/16/18 12:14 Dose: 10 mg Ondansetron HCl (Zofran Tab) 4 mg PO Q6 PRN PRN Reason: Nausea/Vomiting Oxycodone HCl (Oxycontin Extended Release Tab) 80 mg PO Q12 [facility] Last Admin: 07/16/18 08:57 Dose: 80 mg Oxycodone HCl (Oxycodone Immediate Release Tab) 30 mg PO Q6 PRN PRN Reason: Pain, severe (8-10) Last Admin: 07/16/18 06:16 Dose: 30 mg Pantoprazole Sodium (Protonix Ec Tab) 40 mg PO DAILY [facility] Last Admin: 07/16/18 08:58 Dose: 40 mg Senna/Docusate Sodium (Senokot S 50 Mg-8.6 Mg) 2 tab PO HS [facility] Last Admin: 07/15/18 21:34 Dose: 2 tab - Labs Labs: 07/14/18 06:32 07/14/18 06:32 PT 12.0 Seconds (9.8-13.1) 07/14/18 06:32 INR 1.1 07/14/18 06:32 - Extremities Exam Additional comments: Right knee; incision intact, dry, mild knee swelling, no calf swelling, exquisite tenderness to right achilles, no ankle swelling, no heel tenderness +DP/PT pulses calves soft NT eng homans Assessment and Plan (1) S/P total knee replacement Assessment & Plan: patient is now back on her home dosage of pain medications with is much higher than what she was taking as inpatient lidoderm patch x 2 days to right achilles and ice, will stretch with PT patient to work on extension VTE proph orthopedically stable d/w Dr. Sharif, agrees with above Status: Inactive
--- NOTE | 2018-07-16 16:26 | RAD ---
Date of service: 07/16/2018 PROCEDURE: Right Ankle Radiographs. HISTORY: right ankle xray COMPARISON: Right ankle radiographs dated 11/24/2010 FINDINGS: BONES: No acute fracture. JOINTS: Ankle mortise maintained. Talar dome intact SOFT TISSUES: Bimalleolar soft tissue swelling. OTHER FINDINGS: None. IMPRESSION: Bimalleolar soft tissue swelling without demonstrated fracture or dislocation.
--- NOTE | 2018-07-16 17:14 | CP.PCM.PN ---
Subjective - Date & Time of Evaluation Date of Evaluation: 07/16/18 Time of Evaluation: 17:13 - Subjective Subjective: patient seen in PT doing well ROM helps with gait she has pain but bearable with medication x-ray of foot/ankle showed some soft tissue swelling but no significant bony abnormality continue current care Objective - Vital Signs/Intake and Output Vital Signs (last 24 hours): Temp Pulse Resp BP Pulse Ox 98.7 F 98 H 20 119/85 95 07/16/18 15:52 07/16/18 15:52 07/16/18 15:52 07/16/18 15:52 07/16/18 15:52 - Medications Medications: Current Medications Acetaminophen (Tylenol 325mg Tab) 650 mg PO Q6 PRN PRN Reason: Pain, Mild (1-3) Alprazolam (Xanax) 2 mg PO BID PRN PRN Reason: Anxiety Last Admin: 07/16/18 06:17 Dose: 2 mg Diphenhydramine HCl (Benadryl) 25 mg PO Q6 PRN PRN Reason: Itching / Pruritus Last Admin: 07/14/18 14:57 Dose: 25 mg Docusate Sodium (Colace) 100 mg PO BID [facility] Last Admin: 07/16/18 08:58 Dose: 100 mg Enoxaparin Sodium (Lovenox) 40 mg SC DAILY [facility]; Protocol Last Admin: 07/16/18 09:04 Dose: Not Given Ergocalciferol (Drisdol 50,000 Intl Units Cap) 1 cap PO Q7D [facility] Last Admin: 07/16/18 08:58 Dose: 1 cap Ferrous Sulfate (Feosol) 325 mg PO BID [facility] Last Admin: 07/16/18 08:58 Dose: 325 mg Lactic Acid (Lac-Hydrin 12% Lotion (225 G)) 1 applic TOP TID [facility] Last Admin: 07/16/18 12:14 Dose: 1 applic Lidocaine (Lidoderm) 1 ea TD DAILY [facility] Stop: 07/18/18 09:01 Methadone HCl (Methadone) 10 mg PO TID [facility] Last Admin: 07/16/18 12:14 Dose: 10 mg Ondansetron HCl (Zofran Tab) 4 mg PO Q6 PRN PRN Reason: Nausea/Vomiting Oxycodone HCl (Oxycontin Extended Release Tab) 80 mg PO Q12 [facility] Last Admin: 07/16/18 08:57 Dose: 80 mg Oxycodone HCl (Oxycodone Immediate Release Tab) 30 mg PO Q6 PRN PRN Reason: Pain, severe (8-10) Last Admin: 07/16/18 06:16 Dose: 30 mg Pantoprazole Sodium (Protonix Ec Tab) 40 mg PO DAILY [facility] Last Admin: 07/16/18 08:58 Dose: 40 mg Senna/Docusate Sodium (Senokot S 50 Mg-8.6 Mg) 2 tab PO HS [facility] Last Admin: 07/15/18 21:34 Dose: 2 tab - Labs Labs: 07/14/18 06:32 07/14/18 06:32 PT 12.0 Seconds (9.8-13.1) 07/14/18 06:32 INR 1.1 07/14/18 06:32
[2018-07-16] MEDS: Docusate-Senna 50 mg-8.6 mg Tab PO SCH (21:23)
[2018-07-17] MEDS: oxyCODONE 10 mg Immediate Release Tab PO PRN ×3 (03:19→23:32)
[2018-07-17] MEDS: oxyCODONE 40 mg ER Tab (oxyCONTIN) PO SCH ×2 (08:18→20:17)
[2018-07-17] MEDS: Lidocaine 5% Patch TD SCH (08:20)
[2018-07-17] MEDS: Pantoprazole 40 mg EC Tab PO SCH (08:22)
[2018-07-17] MEDS: Enoxaparin 40 mg Syringe SC SCH ×2 (08:22→08:39)
--- NOTE | 2018-07-17 09:50 | CP.PCM.PN ---
Subjective - Date & Time of Evaluation Date of Evaluation: 07/17/18 Time of Evaluation: 09:47 - Subjective Subjective: Patient complaining of knee pain and heel pain. She is still in the immobilizer and it slid down and is hitting her on her achilles area. This is likely contributing to pain. Objective - Vital Signs/Intake and Output Vital Signs (last 24 hours): Temp Pulse Resp BP Pulse Ox 99.2 F 90 20 129/59 L 99 07/17/18 08:18 07/17/18 08:18 07/17/18 08:18 07/17/18 08:18 07/17/18 08:18 - Medications Medications: Current Medications Acetaminophen (Tylenol 325mg Tab) 650 mg PO Q6 PRN PRN Reason: Pain, Mild (1-3) Alprazolam (Xanax) 2 mg PO BID PRN PRN Reason: Anxiety Last Admin: 07/17/18 03:55 Dose: 2 mg Diphenhydramine HCl (Benadryl) 25 mg PO Q6 PRN PRN Reason: Itching / Pruritus Last Admin: 07/17/18 03:57 Dose: 25 mg Docusate Sodium (Colace) 100 mg PO BID [facility] Last Admin: 07/17/18 08:21 Dose: 100 mg Enoxaparin Sodium (Lovenox) 40 mg SC DAILY [facility]; Protocol Last Admin: 07/17/18 08:39 Dose: 40 mg Ergocalciferol (Drisdol 50,000 Intl Units Cap) 1 cap PO Q7D [facility] Last Admin: 07/16/18 08:58 Dose: 1 cap Ferrous Sulfate (Feosol) 325 mg PO BID [facility] Last Admin: 07/17/18 08:21 Dose: 325 mg Lactic Acid (Lac-Hydrin 12% Lotion (225 G)) 1 applic TOP TID [facility] Last Admin: 07/17/18 08:22 Dose: Not Given Lidocaine (Lidoderm) 1 ea TD DAILY [facility] Stop: 07/18/18 09:01 Last Admin: 07/17/18 08:20 Dose: 1 ea Methadone HCl (Methadone) 10 mg PO TID [facility] Last Admin: 07/17/18 08:19 Dose: 10 mg Ondansetron HCl (Zofran Tab) 4 mg PO Q6 PRN PRN Reason: Nausea/Vomiting Oxycodone HCl (Oxycontin Extended Release Tab) 80 mg PO Q12 [facility] Last Admin: 07/17/18 08:18 Dose: 80 mg Oxycodone HCl (Oxycodone Immediate Release Tab) 30 mg PO Q6 PRN PRN Reason: Pain, severe (8-10) Last Admin: 07/17/18 03:19 Dose: 30 mg Pantoprazole Sodium (Protonix Ec Tab) 40 mg PO DAILY [facility] Last Admin: 07/17/18 08:22 Dose: 40 mg Senna/Docusate Sodium (Senokot S 50 Mg-8.6 Mg) 2 tab PO HS [facility] Last Admin: 07/16/18 21:23 Dose: 2 tab - Labs Labs: 07/14/18 06:32 07/14/18 06:32 PT 12.0 Seconds (9.8-13.1) 07/14/18 06:32 INR 1.1 07/14/18 06:32 - Extremities Exam Additional comments: Right knee: incision intact, dry, knee extension improving, calves soft NT neg homans +Dp/PT pulses Right ankle xrays negative for fracture Assessment and Plan (1) S/P total knee replacement Assessment & Plan: Patient is refusing lovenox. Advised patient she is at increased risk of VTE and needs to be taking some medication for proph. Patient is reporting lip swelling, and says it was after eating and taking aspirin, so unclear what is actual allergy. She had 3 doses of aspirin prior to any complaints. Would recommend patient either accept injections, or reattempt aspirin (preferable agent at this time after surgery) to see if that was cause of lip swelling. patient is now back on her home dosage of pain medications with is much higher than what she was taking as inpatient lidoderm patch x 2 days to right achilles and ice, will stretch with PT, shorter knee immob at night patient to continue work on extension VTE proph orthopedically stable d/w Dr. Sharif, agrees with above Status: Inactive
[2018-07-17] MEDS: Docusate-Senna 50 mg-8.6 mg Tab PO SCH (23:33)
[2018-07-18] MEDS: oxyCODONE 10 mg Immediate Release Tab PO PRN ×2 (07:38→13:35)
[2018-07-18] MEDS: oxyCODONE 40 mg ER Tab (oxyCONTIN) PO SCH ×2 (08:35→21:15)
[2018-07-18] MEDS: Lidocaine 5% Patch TD SCH (08:36)
[2018-07-18] MEDS: Enoxaparin 40 mg Syringe SC SCH (08:36)
[2018-07-18] MEDS: Pantoprazole 40 mg EC Tab PO SCH (08:37)
--- NOTE | 2018-07-18 18:26 | CP.PCM.PN ---
Subjective - Date & Time of Evaluation Date of Evaluation: 07/18/18 Time of Evaluation: 18:26 - Subjective Subjective: Patient seen in the room and very motivated He is doing her own ROM exercises and stated that she wants to be ready for the left knee in 3 months time continue current care Objective - Vital Signs/Intake and Output Vital Signs (last 24 hours): Temp Pulse Resp BP Pulse Ox 99.7 F H 113 H 20 107/75 97 07/18/18 17:14 07/18/18 17:14 07/18/18 17:14 07/18/18 17:14 07/18/18 17:14 - Medications Medications: Current Medications Acetaminophen (Tylenol 325mg Tab) 650 mg PO Q6 PRN PRN Reason: Pain, Mild (1-3) Alprazolam (Xanax) 2 mg PO BID PRN PRN Reason: Anxiety Last Admin: 07/17/18 23:31 Dose: 2 mg Diphenhydramine HCl (Benadryl) 25 mg PO Q6 PRN PRN Reason: Itching / Pruritus Last Admin: 07/17/18 03:57 Dose: 25 mg Docusate Sodium (Colace) 100 mg PO BID [facility] Last Admin: 07/18/18 17:25 Dose: 100 mg Enoxaparin Sodium (Lovenox) 40 mg SC DAILY [facility]; Protocol Last Admin: 07/18/18 08:36 Dose: 40 mg Ergocalciferol (Drisdol 50,000 Intl Units Cap) 1 cap PO Q7D [facility] Last Admin: 07/16/18 08:58 Dose: 1 cap Ferrous Sulfate (Feosol) 325 mg PO BID [facility] Last Admin: 07/18/18 17:25 Dose: 325 mg Lactic Acid (Lac-Hydrin 12% Lotion (225 G)) 1 applic TOP TID [facility] Last Admin: 07/18/18 17:25 Dose: Not Given Methadone HCl (Methadone) 10 mg PO TID [facility] Last Admin: 07/18/18 17:24 Dose: 10 mg Ondansetron HCl (Zofran Tab) 4 mg PO Q6 PRN PRN Reason: Nausea/Vomiting Oxycodone HCl (Oxycontin Extended Release Tab) 80 mg PO Q12 [facility] Last Admin: 07/18/18 08:35 Dose: 80 mg Oxycodone HCl (Oxycodone Immediate Release Tab) 30 mg PO Q6 PRN PRN Reason: Pain, severe (8-10) Last Admin: 07/18/18 13:35 Dose: 30 mg Pantoprazole Sodium (Protonix Ec Tab) 40 mg PO DAILY [facility] Last Admin: 07/18/18 08:37 Dose: 40 mg Senna/Docusate Sodium (Senokot S 50 Mg-8.6 Mg) 2 tab PO HS [facility] Last Admin: 07/17/18 23:33 Dose: 2 tab - Labs Labs: 07/14/18 06:32 07/14/18 06:32 PT 12.0 Seconds (9.8-13.1) 07/14/18 06:32 INR 1.1 07/14/18 06:32
[2018-07-18] MEDS: Docusate-Senna 50 mg-8.6 mg Tab PO SCH (21:16)
[2018-07-19] MEDS: oxyCODONE 10 mg Immediate Release Tab PO PRN ×4 (04:13→23:17)
[2018-07-19] MEDS: oxyCODONE 40 mg ER Tab (oxyCONTIN) PO SCH ×2 (08:44→21:31)
[2018-07-19] MEDS: Pantoprazole 40 mg EC Tab PO SCH (08:45)
[2018-07-19] MEDS: Enoxaparin 40 mg Syringe SC SCH (08:46)
--- NOTE | 2018-07-19 15:53 | RAD ---
Date of service: 07/19/2018 PROCEDURE: Right Knee Radiographs. HISTORY: Pain. COMPARISON: Comparison made with prior radiographs of the right knee [id number]. Comparison made with FINDINGS: BONES: Again noted is right-sided total knee arthroplasty.. Satisfactory alignment. Interval near complete resolution postoperative surrounding postoperative air and diminished postoperative edema JOINTS: Normal. No osteoarthritis. JOINT EFFUSION: Size joint effusion again noted. OTHER FINDINGS: None IMPRESSION: Total knee arthroplasty with satisfactory alignment. Improved postoperative changes as above
[2018-07-19] MEDS ORDERED: Lidocaine 5% Patch TD STA ×2 (16:56)
[2018-07-19] MEDS: Docusate-Senna 50 mg-8.6 mg Tab PO SCH (23:21)
[2018-07-20] MEDS: oxyCODONE 10 mg Immediate Release Tab PO PRN ×3 (05:55→18:34)
[2018-07-20] MEDS ORDERED: Lidocaine 5% Patch TD SCH (09:00)
[2018-07-20] MEDS: oxyCODONE 40 mg ER Tab (oxyCONTIN) PO SCH ×2 (09:15→20:59)
[2018-07-20] MEDS: Enoxaparin 40 mg Syringe SC SCH (09:17)
[2018-07-20] MEDS: Lidocaine 5% Patch TD SCH (09:18)
[2018-07-20] MEDS: Pantoprazole 40 mg EC Tab PO SCH (09:19)
[2018-07-20] MEDS: Docusate-Senna 50 mg-8.6 mg Tab PO SCH (21:02)
[2018-07-21] MEDS: oxyCODONE 10 mg Immediate Release Tab PO PRN (00:20)
--- NOTE | 2018-07-21 01:14 | CP.PCM.PN ---
Subjective - Date & Time of Evaluation Date of Evaluation: 07/18/18 Time of Evaluation: 11:00 - Subjective Subjective: patient is doing well with PT Has minimal pain on the op site Objective - Vital Signs/Intake and Output Vital Signs (last 24 hours): Temp Pulse Resp BP Pulse Ox 99.0 F 99 H 20 111/74 97 07/20/18 19:56 07/20/18 19:56 07/20/18 19:56 07/20/18 19:56 07/20/18 19:56 - Medications Medications: Current Medications Acetaminophen (Tylenol 325mg Tab) 650 mg PO Q6 PRN PRN Reason: Pain, Mild (1-3) Alprazolam (Xanax) 2 mg PO BID PRN PRN Reason: Anxiety Last Admin: 07/20/18 21:14 Dose: 2 mg Diphenhydramine HCl (Benadryl) 25 mg PO Q6 PRN PRN Reason: Itching / Pruritus Last Admin: 07/20/18 21:09 Dose: 25 mg Docusate Sodium (Colace) 100 mg PO BID [facility] Last Admin: 07/20/18 17:22 Dose: 100 mg Enoxaparin Sodium (Lovenox) 40 mg SC DAILY [facility]; Protocol Last Admin: 07/20/18 09:17 Dose: Not Given Ergocalciferol (Drisdol 50,000 Intl Units Cap) 1 cap PO Q7D [facility] Last Admin: 07/16/18 08:58 Dose: 1 cap Ferrous Sulfate (Feosol) 325 mg PO BID [facility] Last Admin: 07/20/18 17:24 Dose: 325 mg Lactic Acid (Lac-Hydrin 12% Lotion (225 G)) 1 applic TOP TID [facility] Last Admin: 07/20/18 17:13 Dose: Not Given Lidocaine (Lidoderm) 1 ea TD DAILY [facility] Last Admin: 07/20/18 09:18 Dose: 1 ea Methadone HCl (Methadone) 10 mg PO TID [facility] Last Admin: 07/20/18 17:21 Dose: 10 mg Ondansetron HCl (Zofran Tab) 4 mg PO Q6 PRN PRN Reason: Nausea/Vomiting Oxycodone HCl (Oxycontin Extended Release Tab) 80 mg PO Q12 [facility] Last Admin: 07/20/18 20:59 Dose: 80 mg Oxycodone HCl (Oxycodone Immediate Release Tab) 30 mg PO Q6 PRN PRN Reason: Pain, severe (8-10) Last Admin: 07/21/18 00:20 Dose: 30 mg Pantoprazole Sodium (Protonix Ec Tab) 40 mg PO DAILY [facility] Last Admin: 07/20/18 09:19 Dose: 40 mg Senna/Docusate Sodium (Senokot S 50 Mg-8.6 Mg) 2 tab PO HS [facility] Last Admin: 07/20/18 21:02 Dose: 2 tab - Labs Labs: 07/14/18 06:32 07/14/18 06:32 PT 12.0 Seconds (9.8-13.1) 07/14/18 06:32 INR 1.1 07/14/18 06:32 - Head Exam Head Exam: NORMAL INSPECTION - Eye Exam Eye Exam: Normal appearance - ENT Exam ENT Exam: Mucous Membranes Moist - Respiratory Exam Respiratory Exam: Clear to Ausculation Bilateral - Cardiovascular Exam Cardiovascular Exam: REGULAR RHYTHM - GI/Abdominal Exam GI & Abdominal Exam: Normal Bowel Sounds - Extremities Exam Additional comments: some swelling on the right knee around op site slight tenderness around knee area Assessment and Plan (1) S/P total knee replacement Status: Inactive (2) Osteoarthritis of right knee Status: Acute - Assessment and Plan (Free Text) Plan: Cont meds Cont tx Cont PT pain meds.
--- NOTE | 2018-07-21 01:16 | CP.PCM.PN ---
Subjective - Date & Time of Evaluation Date of Evaluation: 07/19/18 Time of Evaluation: 13:30 - Subjective Subjective: Patient claims that she fell while trying to go to the bathroom on walker. Apparently she had stepped on a wet floor. Complains of pain and tenderness on the right knee elke lateral part Objective - Vital Signs/Intake and Output Vital Signs (last 24 hours): Temp Pulse Resp BP Pulse Ox 99.0 F 99 H 20 111/74 97 07/20/18 19:56 07/20/18 19:56 07/20/18 19:56 07/20/18 19:56 07/20/18 19:56 - Medications Medications: Current Medications Acetaminophen (Tylenol 325mg Tab) 650 mg PO Q6 PRN PRN Reason: Pain, Mild (1-3) Alprazolam (Xanax) 2 mg PO BID PRN PRN Reason: Anxiety Last Admin: 07/20/18 21:14 Dose: 2 mg Diphenhydramine HCl (Benadryl) 25 mg PO Q6 PRN PRN Reason: Itching / Pruritus Last Admin: 07/20/18 21:09 Dose: 25 mg Docusate Sodium (Colace) 100 mg PO BID [facility] Last Admin: 07/20/18 17:22 Dose: 100 mg Enoxaparin Sodium (Lovenox) 40 mg SC DAILY [facility]; Protocol Last Admin: 07/20/18 09:17 Dose: Not Given Ergocalciferol (Drisdol 50,000 Intl Units Cap) 1 cap PO Q7D [facility] Last Admin: 07/16/18 08:58 Dose: 1 cap Ferrous Sulfate (Feosol) 325 mg PO BID [facility] Last Admin: 07/20/18 17:24 Dose: 325 mg Lactic Acid (Lac-Hydrin 12% Lotion (225 G)) 1 applic TOP TID [facility] Last Admin: 07/20/18 17:13 Dose: Not Given Lidocaine (Lidoderm) 1 ea TD DAILY [facility] Last Admin: 07/20/18 09:18 Dose: 1 ea Methadone HCl (Methadone) 10 mg PO TID [facility] Last Admin: 07/20/18 17:21 Dose: 10 mg Ondansetron HCl (Zofran Tab) 4 mg PO Q6 PRN PRN Reason: Nausea/Vomiting Oxycodone HCl (Oxycontin Extended Release Tab) 80 mg PO Q12 [facility] Last Admin: 07/20/18 20:59 Dose: 80 mg Oxycodone HCl (Oxycodone Immediate Release Tab) 30 mg PO Q6 PRN PRN Reason: Pain, severe (8-10) Last Admin: 07/21/18 00:20 Dose: 30 mg Pantoprazole Sodium (Protonix Ec Tab) 40 mg PO DAILY [facility] Last Admin: 07/20/18 09:19 Dose: 40 mg Senna/Docusate Sodium (Senokot S 50 Mg-8.6 Mg) 2 tab PO HS [facility] Last Admin: 07/20/18 21:02 Dose: 2 tab - Labs Labs: 07/14/18 06:32 07/14/18 06:32 PT 12.0 Seconds (9.8-13.1) 07/14/18 06:32 INR 1.1 07/14/18 06:32 - Head Exam Head Exam: NORMAL INSPECTION - Eye Exam Eye Exam: Normal appearance - ENT Exam ENT Exam: Mucous Membranes Moist - Respiratory Exam Respiratory Exam: Clear to Ausculation Bilateral - Cardiovascular Exam Cardiovascular Exam: REGULAR RHYTHM - GI/Abdominal Exam GI & Abdominal Exam: Normal Bowel Sounds - Extremities Exam Additional comments: tenderness on the lateral aspect of the right knee noted some swelling - Neurological Exam Neurological Exam: CN II-XII Intact Assessment and Plan (1) S/P total knee replacement Status: Inactive (2) Osteoarthritis of right knee Status: Acute - Assessment and Plan (Free Text) Plan: Cont meds Cont pain meds Xray was ordered
--- NOTE | 2018-07-21 01:22 | CP.PCM.PN ---
Subjective - Date & Time of Evaluation Date of Evaluation: 07/20/18 Time of Evaluation: 15:00 - Subjective Subjective: Patient still ahs some swelling and tenderness on the lateral aspect of the right knee Xray showed less swelling and noted good alignment. Objective - Vital Signs/Intake and Output Vital Signs (last 24 hours): Temp Pulse Resp BP Pulse Ox 99.0 F 99 H 20 111/74 97 07/20/18 19:56 07/20/18 19:56 07/20/18 19:56 07/20/18 19:56 07/20/18 19:56 - Medications Medications: Current Medications Acetaminophen (Tylenol 325mg Tab) 650 mg PO Q6 PRN PRN Reason: Pain, Mild (1-3) Alprazolam (Xanax) 2 mg PO BID PRN PRN Reason: Anxiety Last Admin: 07/20/18 21:14 Dose: 2 mg Diphenhydramine HCl (Benadryl) 25 mg PO Q6 PRN PRN Reason: Itching / Pruritus Last Admin: 07/20/18 21:09 Dose: 25 mg Docusate Sodium (Colace) 100 mg PO BID [facility] Last Admin: 07/20/18 17:22 Dose: 100 mg Enoxaparin Sodium (Lovenox) 40 mg SC DAILY [facility]; Protocol Last Admin: 07/20/18 09:17 Dose: Not Given Ergocalciferol (Drisdol 50,000 Intl Units Cap) 1 cap PO Q7D [facility] Last Admin: 07/16/18 08:58 Dose: 1 cap Ferrous Sulfate (Feosol) 325 mg PO BID [facility] Last Admin: 07/20/18 17:24 Dose: 325 mg Lactic Acid (Lac-Hydrin 12% Lotion (225 G)) 1 applic TOP TID [facility] Last Admin: 07/20/18 17:13 Dose: Not Given Lidocaine (Lidoderm) 1 ea TD DAILY [facility] Last Admin: 07/20/18 09:18 Dose: 1 ea Methadone HCl (Methadone) 10 mg PO TID [facility] Last Admin: 07/20/18 17:21 Dose: 10 mg Ondansetron HCl (Zofran Tab) 4 mg PO Q6 PRN PRN Reason: Nausea/Vomiting Oxycodone HCl (Oxycontin Extended Release Tab) 80 mg PO Q12 [facility] Last Admin: 07/20/18 20:59 Dose: 80 mg Oxycodone HCl (Oxycodone Immediate Release Tab) 30 mg PO Q6 PRN PRN Reason: Pain, severe (8-10) Last Admin: 07/21/18 00:20 Dose: 30 mg Pantoprazole Sodium (Protonix Ec Tab) 40 mg PO DAILY [facility] Last Admin: 07/20/18 09:19 Dose: 40 mg Senna/Docusate Sodium (Senokot S 50 Mg-8.6 Mg) 2 tab PO HS [facility] Last Admin: 07/20/18 21:02 Dose: 2 tab - Labs Labs: 07/14/18 06:32 07/14/18 06:32 PT 12.0 Seconds (9.8-13.1) 07/14/18 06:32 INR 1.1 07/14/18 06:32 - Head Exam Head Exam: NORMAL INSPECTION - Eye Exam Eye Exam: Normal appearance - ENT Exam ENT Exam: Mucous Membranes Moist - Respiratory Exam Respiratory Exam: Clear to Ausculation Bilateral - Cardiovascular Exam Cardiovascular Exam: REGULAR RHYTHM - GI/Abdominal Exam GI & Abdominal Exam: Normal Bowel Sounds - Extremities Exam Additional comments: some tenderness on the lateral aspect of the right knee Assessment and Plan (1) S/P total knee replacement Status: Inactive (2) Osteoarthritis of right knee Status: Acute - Assessment and Plan (Free Text) Plan: Cont meds Cont pain meds cont pt
[2018-07-21] MEDS: oxyCODONE 40 mg ER Tab (oxyCONTIN) PO SCH ×2 (09:22→21:32)
[2018-07-21] MEDS: Pantoprazole 40 mg EC Tab PO SCH (09:23)
[2018-07-21] MEDS: Lidocaine 5% Patch TD SCH (09:25)
[2018-07-21] MEDS: Enoxaparin 40 mg Syringe SC SCH (09:28)
--- NOTE | 2018-07-21 10:26 | CP.PCM.PN ---
Subjective - Date & Time of Evaluation Date of Evaluation: 07/21/18 Time of Evaluation: 08:30 - Subjective Subjective: Patient seen and examined at bedside comfortable. Pain better controlled. Reports slip and fall on slippery wet surface beside bed while trying to go to bathroom. She did not fall to ground but strained/struck thigh against bed rails. C/o lateral distal thigh pain. No other complaints. Objective - Vital Signs/Intake and Output Vital Signs (last 24 hours): Temp Pulse Resp BP Pulse Ox 99.0 F 99 H 20 111/74 97 07/20/18 19:56 07/20/18 19:56 07/20/18 19:56 07/20/18 19:56 07/20/18 19:56 - Medications Medications: Current Medications Acetaminophen (Tylenol 325mg Tab) 650 mg PO Q6 PRN PRN Reason: Pain, Mild (1-3) Alprazolam (Xanax) 2 mg PO BID PRN PRN Reason: Anxiety Last Admin: 07/20/18 21:14 Dose: 2 mg Diphenhydramine HCl (Benadryl) 25 mg PO Q6 PRN PRN Reason: Itching / Pruritus Last Admin: 07/21/18 02:18 Dose: 25 mg Docusate Sodium (Colace) 100 mg PO BID [facility] Last Admin: 07/21/18 09:23 Dose: 100 mg Enoxaparin Sodium (Lovenox) 40 mg SC DAILY [facility]; Protocol Last Admin: 07/21/18 09:28 Dose: 40 mg Ergocalciferol (Drisdol 50,000 Intl Units Cap) 1 cap PO Q7D [facility] Last Admin: 07/16/18 08:58 Dose: 1 cap Ferrous Sulfate (Feosol) 325 mg PO BID [facility] Last Admin: 07/21/18 09:22 Dose: 325 mg Lactic Acid (Lac-Hydrin 12% Lotion (225 G)) 1 applic TOP TID [facility] Last Admin: 07/21/18 09:27 Dose: Not Given Lidocaine (Lidoderm) 1 ea TD DAILY [facility] Last Admin: 07/21/18 09:25 Dose: 1 ea Methadone HCl (Methadone) 10 mg PO TID [facility] Last Admin: 07/21/18 09:22 Dose: 10 mg Ondansetron HCl (Zofran Tab) 4 mg PO Q6 PRN PRN Reason: Nausea/Vomiting Oxycodone HCl (Oxycontin Extended Release Tab) 80 mg PO Q12 [facility] Last Admin: 07/21/18 09:22 Dose: 80 mg Oxycodone HCl (Oxycodone Immediate Release Tab) 30 mg PO Q6 PRN PRN Reason: Pain, severe (8-10) Last Admin: 07/21/18 00:20 Dose: 30 mg Pantoprazole Sodium (Protonix Ec Tab) 40 mg PO DAILY [facility] Last Admin: 07/21/18 09:23 Dose: 40 mg Senna/Docusate Sodium (Senokot S 50 Mg-8.6 Mg) 2 tab PO HS [facility] Last Admin: 07/20/18 21:02 Dose: 2 tab - Labs Labs: 07/14/18 06:32 07/14/18 06:32 PT 12.0 Seconds (9.8-13.1) 07/14/18 06:32 INR 1.1 07/14/18 06:32 - Extremities Exam Additional comments: R knee: Dressings CDI Incision CDI with emilia, no drainage/erythema well balanced TKA, no findings of instability sensation intact SP/DP/TN motor intact EHL/FHL/TA/G pedal pulses intact calves soft NT b/l Assessment and Plan (1) S/P total knee replacement Assessment & Plan: POD#13 s/p R TKA -Dressings changed -PT/OT WBAT -DVT ppx -orthopedically stable -above d/w Dr. Sharif in agreement Status: Inactive
--- NOTE | 2018-07-21 18:48 | CP.PCM.PN ---
Subjective - Date & Time of Evaluation Date of Evaluation: 07/21/18 Time of Evaluation: 18:47 - Subjective Subjective: Patient seen in the room working hard d/c has been delayed following a fall in the room reportedly from water on the floor as per Cecy cortez sob/cp remains motivated hardware intact Objective - Vital Signs/Intake and Output Vital Signs (last 24 hours): Temp Pulse Resp BP Pulse Ox 98.9 F 114 H 20 111/84 96 07/21/18 15:49 07/21/18 15:49 07/21/18 15:49 07/21/18 15:49 07/21/18 15:49 - Medications Medications: Current Medications Acetaminophen (Tylenol 325mg Tab) 650 mg PO Q6 PRN PRN Reason: Pain, Mild (1-3) Alprazolam (Xanax) 2 mg PO BID PRN PRN Reason: Anxiety Last Admin: 07/20/18 21:14 Dose: 2 mg Diphenhydramine HCl (Benadryl) 25 mg PO Q6 PRN PRN Reason: Itching / Pruritus Last Admin: 07/21/18 02:18 Dose: 25 mg Docusate Sodium (Colace) 100 mg PO BID [facility] Last Admin: 07/21/18 17:42 Dose: 100 mg Enoxaparin Sodium (Lovenox) 40 mg SC DAILY [facility]; Protocol Last Admin: 07/21/18 09:28 Dose: 40 mg Ergocalciferol (Drisdol 50,000 Intl Units Cap) 1 cap PO Q7D [facility] Last Admin: 07/16/18 08:58 Dose: 1 cap Ferrous Sulfate (Feosol) 325 mg PO BID [facility] Last Admin: 07/21/18 17:42 Dose: 325 mg Lactic Acid (Lac-Hydrin 12% Lotion (225 G)) 1 applic TOP TID [facility] Last Admin: 07/21/18 17:11 Dose: Not Given Lidocaine (Lidoderm) 1 ea TD DAILY [facility] Last Admin: 07/21/18 09:25 Dose: 1 ea Methadone HCl (Methadone) 10 mg PO TID [facility] Last Admin: 07/21/18 17:41 Dose: 10 mg Ondansetron HCl (Zofran Tab) 4 mg PO Q6 PRN PRN Reason: Nausea/Vomiting Oxycodone HCl (Oxycontin Extended Release Tab) 80 mg PO Q12 [facility] Last Admin: 07/21/18 09:22 Dose: 80 mg Oxycodone HCl (Oxycodone Immediate Release Tab) 30 mg PO Q6 PRN PRN Reason: Pain, severe (8-10) Last Admin: 07/21/18 00:20 Dose: 30 mg Pantoprazole Sodium (Protonix Ec Tab) 40 mg PO DAILY [facility] Last Admin: 07/21/18 09:23 Dose: 40 mg Senna/Docusate Sodium (Senokot S 50 Mg-8.6 Mg) 2 tab PO HS [facility] Last Admin: 07/20/18 21:02 Dose: 2 tab - Labs Labs: 07/14/18 06:32 07/14/18 06:32 PT 12.0 Seconds (9.8-13.1) 07/14/18 06:32 INR 1.1 07/14/18 06:32
[2018-07-21] MEDS: Docusate-Senna 50 mg-8.6 mg Tab PO SCH (21:32)
[2018-07-22] MEDS: oxyCODONE 10 mg Immediate Release Tab PO PRN ×2 (01:05→07:44)
[2018-07-22] MEDS: Lidocaine 5% Patch TD SCH (09:04)
[2018-07-22] MEDS: Enoxaparin 40 mg Syringe SC SCH (09:04)
[2018-07-22] MEDS: oxyCODONE 40 mg ER Tab (oxyCONTIN) PO SCH ×2 (09:05→21:22)
[2018-07-22] MEDS: Pantoprazole 40 mg EC Tab PO SCH (09:05)
[2018-07-22 11:37] LABS: HEMOGLOBIN 9.9 g/dL (12.0-16.0); MEAN CELL VOLUME 78.9 fl (81.0-99.0); MEAN CORPUSCULAR HGB CONC 31.7 g/dL (33.0-37.0); RBC 3.94 Mil/uL (3.80-5.20); WHITE BLOOD COUNT 5.6 K/uL (4.8-10.8)
[2018-07-22] MEDS: Docusate-Senna 50 mg-8.6 mg Tab PO SCH (21:22)
[2018-07-23] MEDS: oxyCODONE 10 mg Immediate Release Tab PO PRN ×2 (02:42→10:37)
[2018-07-23 07:59] VITALS: BP 113/75; PULSE 87; TEMP 97.5; O2SAT 97
--- NOTE | 2018-07-23 08:44 | CP.PCM.PN ---
Subjective - Date & Time of Evaluation Date of Evaluation: 07/22/18 Time of Evaluation: 11:00 - Subjective Subjective: Patient feels a lot better Still with tenderness around knee surgical wound. Doing well with PT. Objective - Vital Signs/Intake and Output Vital Signs (last 24 hours): Temp Pulse Resp BP Pulse Ox 97.5 F L 87 20 113/75 97 07/23/18 07:58 07/23/18 07:58 07/23/18 07:58 07/23/18 07:58 07/23/18 07:58 - Medications Medications: Current Medications Acetaminophen (Tylenol 325mg Tab) 650 mg PO Q6 PRN PRN Reason: Pain, Mild (1-3) Alprazolam (Xanax) 2 mg PO BID PRN PRN Reason: Anxiety Last Admin: 07/22/18 21:22 Dose: 2 mg Diphenhydramine HCl (Benadryl) 25 mg PO Q6 PRN PRN Reason: Itching / Pruritus Last Admin: 07/22/18 22:07 Dose: 25 mg Docusate Sodium (Colace) 100 mg PO BID [facility] Last Admin: 07/22/18 17:01 Dose: 100 mg Enoxaparin Sodium (Lovenox) 40 mg SC DAILY [facility]; Protocol Last Admin: 07/22/18 09:04 Dose: 40 mg Ergocalciferol (Drisdol 50,000 Intl Units Cap) 1 cap PO Q7D [facility] Last Admin: 07/16/18 08:58 Dose: 1 cap Ferrous Sulfate (Feosol) 325 mg PO BID [facility] Last Admin: 07/22/18 19:15 Dose: Not Given Lactic Acid (Lac-Hydrin 12% Lotion (225 G)) 1 applic TOP TID [facility] Last Admin: 07/22/18 16:58 Dose: Not Given Lidocaine (Lidoderm) 1 ea TD DAILY [facility] Last Admin: 07/22/18 09:04 Dose: 1 ea Methadone HCl (Methadone) 10 mg PO TID [facility] Last Admin: 07/22/18 17:01 Dose: 10 mg Ondansetron HCl (Zofran Tab) 4 mg PO Q6 PRN PRN Reason: Nausea/Vomiting Oxycodone HCl (Oxycontin Extended Release Tab) 80 mg PO Q12 [facility] Last Admin: 07/22/18 21:22 Dose: 80 mg Oxycodone HCl (Oxycodone Immediate Release Tab) 30 mg PO Q6 PRN PRN Reason: Pain, severe (8-10) Last Admin: 07/23/18 02:42 Dose: 30 mg Pantoprazole Sodium (Protonix Ec Tab) 40 mg PO DAILY [facility] Last Admin: 07/22/18 09:05 Dose: 40 mg Senna/Docusate Sodium (Senokot S 50 Mg-8.6 Mg) 2 tab PO HS [facility] Last Admin: 07/22/18 21:22 Dose: 2 tab - Labs Labs: 07/22/18 11:25 07/14/18 06:32 PT 12.0 Seconds (9.8-13.1) 07/14/18 06:32 INR 1.1 07/14/18 06:32 - Eye Exam Eye Exam: Normal appearance - ENT Exam ENT Exam: Mucous Membranes Moist - Respiratory Exam Respiratory Exam: Clear to Ausculation Bilateral - Cardiovascular Exam Cardiovascular Exam: REGULAR RHYTHM - GI/Abdominal Exam GI & Abdominal Exam: Normal Bowel Sounds Assessment and Plan (1) S/P total knee replacement Status: Inactive (2) Osteoarthritis of right knee Status: Acute (3) Acute blood loss anemia Status: Acute - Assessment and Plan (Free Text) Plan: Cont meds ferrous cbc cont PT
[2018-07-23] MEDS: Ergocalciferol 50,000 Intl Units Cap PO SCH (09:04)
[2018-07-23] MEDS: Lidocaine 5% Patch TD SCH (09:05)
[2018-07-23] MEDS: Pantoprazole 40 mg EC Tab PO SCH (09:06)
[2018-07-23] MEDS: oxyCODONE 40 mg ER Tab (oxyCONTIN) PO SCH (09:06)
[2018-07-23] MEDS: Enoxaparin 40 mg Syringe SC SCH (09:08)
--- NOTE | 2018-07-23 11:29 | CP.PCM.PN ---
Subjective - Date & Time of Evaluation Date of Evaluation: 07/23/18 Time of Evaluation: 10:00 - Subjective Subjective: Patient seen and examined at bedside comfortable. Pain well controlled. Scheduled for discharge to home today. Objective - Vital Signs/Intake and Output Vital Signs (last 24 hours): Temp Pulse Resp BP Pulse Ox 97.5 F L 87 20 113/75 97 07/23/18 07:58 07/23/18 07:58 07/23/18 07:58 07/23/18 07:58 07/23/18 07:58 - Medications Medications: Current Medications Acetaminophen (Tylenol 325mg Tab) 650 mg PO Q6 PRN PRN Reason: Pain, Mild (1-3) Alprazolam (Xanax) 2 mg PO BID PRN PRN Reason: Anxiety Last Admin: 07/22/18 21:22 Dose: 2 mg Diphenhydramine HCl (Benadryl) 25 mg PO Q6 PRN PRN Reason: Itching / Pruritus Last Admin: 07/22/18 22:07 Dose: 25 mg Docusate Sodium (Colace) 100 mg PO BID [facility] Last Admin: 07/23/18 09:04 Dose: 100 mg Enoxaparin Sodium (Lovenox) 40 mg SC DAILY [facility]; Protocol Last Admin: 07/23/18 09:08 Dose: Not Given Ergocalciferol (Drisdol 50,000 Intl Units Cap) 1 cap PO Q7D [facility] Last Admin: 07/23/18 09:04 Dose: 1 cap Ferrous Sulfate (Feosol) 325 mg PO BID [facility] Last Admin: 07/23/18 09:04 Dose: 325 mg Lactic Acid (Lac-Hydrin 12% Lotion (225 G)) 1 applic TOP TID [facility] Last Admin: 07/23/18 09:04 Dose: 1 applic Lidocaine (Lidoderm) 1 ea TD DAILY [facility] Last Admin: 07/23/18 09:05 Dose: 1 ea Methadone HCl (Methadone) 10 mg PO TID [facility] Last Admin: 07/23/18 09:05 Dose: 10 mg Ondansetron HCl (Zofran Tab) 4 mg PO Q6 PRN PRN Reason: Nausea/Vomiting Oxycodone HCl (Oxycontin Extended Release Tab) 80 mg PO Q12 [facility] Last Admin: 07/23/18 09:06 Dose: 80 mg Oxycodone HCl (Oxycodone Immediate Release Tab) 30 mg PO Q6 PRN PRN Reason: Pain, severe (8-10) Last Admin: 07/23/18 10:37 Dose: 30 mg Pantoprazole Sodium (Protonix Ec Tab) 40 mg PO DAILY [facility] Last Admin: 07/23/18 09:06 Dose: 40 mg Senna/Docusate Sodium (Senokot S 50 Mg-8.6 Mg) 2 tab PO HS [facility] Last Admin: 07/22/18 21:22 Dose: 2 tab - Labs Labs: 07/22/18 11:25 07/14/18 06:32 PT 12.0 Seconds (9.8-13.1) 07/14/18 06:32 INR 1.1 07/14/18 06:32 - Extremities Exam Additional comments: R knee: Dressings CDI Incision CDI with emilia, no drainage/erythema sensation intact SP/DP/TN motor intact EHL/FHL/TA/G pedal pulses intact calves soft NT b/l Assessment and Plan (1) S/P total knee replacement Assessment & Plan: POD#15 s/p R TKA -Dressings changed, emilia removed, steri strips applied -PT/OT -DVT ppx -orthopedically stable for d/c to home -f/u in office within 7-10 days -above d/w Dr. Sharif in agreement Status: Inactive
--- NOTE | 2018-07-24 03:08 | CP.PCM.DIS ---
Provider - Provider Date of Admission: 07/12/18 20:59 Attending physician: Myke Montero MD Consults: 07/12/18 23:22 Physiatry Consult Routine Comment: Consulting Provider: Teofilo Callaway Consulting Physician: Teofilo Callaway Reason for Consult: pain management 07/13/18 08:05 Orthopedic Consult Routine Comment: Consulting Provider: Eddie Sharif Consulting Physician: Eddie Sharif Reason for Consult: s/p rt tkr Time Spent in preparation of Discharge (in minutes): 30 Hospital Course - Lab Results Lab Results: Most Recent Lab Values WBC 5.6 K/uL (4.8-10.8) 07/22/18 11:25 RBC 3.94 Mil/uL (3.80-5.20) 07/22/18 11:25 Hgb 9.9 g/dL (12.0-16.0) L 07/22/18 11:25 Hct 31.1 % (34.0-47.0) L 07/22/18 11:25 MCV 78.9 fl (81.0-99.0) L 07/22/18 11:25 MCH 25.0 pg (27.0-31.0) L 07/22/18 11:25 MCHC 31.7 g/dL (33.0-37.0) L 07/22/18 11:25 RDW 19.0 % (11.5-14.5) H 07/22/18 11:25 Plt Count 337 K/uL (130-400) D 07/22/18 11:25 PT 12.0 Seconds (9.8-13.1) 07/14/18 06:32 INR 1.1 07/14/18 06:32 Sodium 141 mmol/l (132-148) 07/14/18 06:32 Potassium 4.0 MMOL/L (3.6-5.0) 07/14/18 06:32 Chloride 97 mmol/L (98-107) L 07/14/18 06:32 Carbon Dioxide 31 mmol/L (22-30) H 07/14/18 06:32 Anion Gap 17 (10-20) 07/14/18 06:32 BUN 15 mg/dl (7-17) 07/14/18 06:32 Creatinine 0.8 mg/dl (0.7-1.2) 07/14/18 06:32 Est GFR ( Amer) > 60 07/14/18 06:32 Est GFR (Non-Af Amer) > 60 07/14/18 06:32 Random Glucose 112 mg/dL (65-105) H 07/14/18 06:32 Calcium 9.1 mg/dL (8.4-10.2) 07/14/18 06:32 Total Bilirubin 0.4 mg/dl (0.2-1.3) 07/14/18 06:32 AST 20 U/L (14-36) 07/14/18 06:32 ALT 27 U/L (9-52) 07/14/18 06:32 Alkaline Phosphatase 82 U/L (38-126) 07/14/18 06:32 Total Protein 7.6 G/DL (6.3-8.2) 07/14/18 06:32 Albumin 3.7 g/dL (3.5-5.0) 07/14/18 06:32 Globulin 3.9 gm/dL (2.2-3.9) 07/14/18 06:32 Albumin/Globulin Ratio 1.0 (1.0-2.1) 07/14/18 06:32 - Hospital Course Hospital Course: pt hospitalized with acute on chronic knee pain. In the hospital, pt underwent a right TKR with Dr. Sharif. Suture removal was done and the pt was d/c home. She will be following up with Dr. Sharif on July 30, 2018. Discharge Exam - Head Exam Head Exam: NORMAL INSPECTION, NORMOCEPHALIC - Eye Exam Eye Exam: Normal appearance, PERRL Pupil Exam: PERRL - ENT Exam ENT Exam: Mucous Membranes Moist - Neck Exam Neck exam: Full Rom - Respiratory Exam Respiratory Exam: Clear to PA & Lateral - Cardiovascular Exam Cardiovascular Exam: REGULAR RHYTHM, +S1, +S2 - GI/Abdominal Exam GI & Abdominal Exam: Normal Bowel Sounds - Extremities Exam Additional comments: swelling and surgical site on right knee. No drainage, openings, or signs of infection in affected knee. - Back Exam Back exam: FULL ROM, NORMAL INSPECTION - Neurological Exam Neurological exam: Alert, Oriented x3 - Psychiatric Exam Psychiatric exam: Normal Affect - Skin Skin Exam: Dry Discharge Plan - Follow Up Plan Condition: STABLE Disposition: HOME/ ROUTINE Instructions: Total Knee Replacement (DC) Additional Instructions: f/u with Dr. Sharif jul 30, 2018. F/U with PCP. Prescriptions for pain medication given by Dr. Callaway. Monitor for s/s infection.
== END 2018-07-23 14:00 | disposition home health service (06) | DRG 560 ==
LOC: H.TCU 20:59
PROVIDERS: ADMIT Family Medicine; ATTEND Family Medicine
PROC: F07Z9FZ Gait Training/Functional Ambulation Treatment using Assistive, Adaptive, Supportive or Protective Equipment (ICD-10-PCS; principal; 2018-07-12)
PROC: F08Z1FZ Dressing Techniques Treatment using Assistive, Adaptive, Supportive or Protective Equipment (ICD-10-PCS; 2018-07-12)
PROC: F08Z4FZ Home Management Treatment using Assistive, Adaptive, Supportive or Protective Equipment (ICD-10-PCS; 2018-07-12)
PROC: F07L6ZZ Therapeutic Exercise Treatment of Musculoskeletal System - Lower Back / Lower Extremity (ICD-10-PCS; 2018-07-12)
PROC: F07L6GZ Therapeutic Exercise Treatment of Musculoskeletal System - Lower Back / Lower Extremity using Aerobic Endurance and Conditioning Equipment (ICD-10-PCS; 2018-07-12)
PROC: F07K6GZ Therapeutic Exercise Treatment of Musculoskeletal System - Upper Back / Upper Extremity using Aerobic Endurance and Conditioning Equipment (ICD-10-PCS; 2018-07-12)
DX: Z47.1 Aftercare following joint replacement surgery (principal); D62 Acute posthemorrhagic anemia; Z96.651 Presence of right artificial knee joint; Z86.73 Personal history of transient ischemic attack (TIA), and cerebral infarction without residual deficits; Z88.1 Allergy status to other antibiotic agents; Z91.013 Allergy to seafood; Z91.018 Allergy to other foods; M54.5 Low back pain; M79.672 Pain in left foot; M79.659 Pain in unspecified thigh

== ENCOUNTER 2018-09-23 06:34 | Day surgery (SDC) | payer BC ==
[2018-09-22 17:06] VITALS: BMI 25.7
[2018-09-23] MEDS ORDERED: Propofol 10 mg/ml Inj (20 ML) ONE (07:25)
[2018-09-23] MEDS ORDERED: Lactated Ringer's 1,000 ML IV ONE (08:55)
[2018-09-23] MEDS ORDERED: DiphenhydrAMINE 50 mg/ml Inj ONE (08:59)
--- NOTE | 2018-09-23 09:47 | CARD ---
APPROVED REPORT Date of service: 09/23/2018 EKG Measurement Heart [id number] <Conclusion> Normal sinus rhythm Nonspecific T wave abnormality Abnormal ECG
[2018-09-23] MEDS: HYDROmorphone 0.5 mg/0.5 ml ISec IVP PRN ×3 (09:55→10:10)
--- NOTE | 2018-09-23 10:16 | PCM.SURG1 ---
Surgeon's Initial Post Op Note - Surgeon's Notes Surgeon: Eddie Sharif MD [employer] Analyst: Ken Poole PA-C Type of Anesthesia: IV Sedation Pre-Operative Diagnosis: Rt knee stiffness s/p RTKR Operative Findings: see op report Post-Operative Diagnosis: same as pre-op dx Operation Performed: Rt knee ADRI Specimen/Specimens Removed: none Estimated Blood Loss: EBL {In ML}: 0 Date of Surgery/Procedure: 09/23/18 Time of Surgery/Procedure: 08:30
[2018-09-23 13:14] VITALS: TEMP 97.3
[2018-09-23 13:15] VITALS: BP 123/67; PULSE 68; RESP 18; O2SAT 100
--- NOTE | 2018-09-23 13:30 | RAD ---
Date of service: 09/23/2018 PROCEDURE: Right Knee Radiographs. HISTORY: S/P right knee manipulation under anesthesia COMPARISON: Right knee radiographs 07/19/2018. TECHNIQUE: 2 views obtained. FINDINGS: BONES: No acute fracture dislocation. No destructive bony lesion appreciable. Although the prosthetic joint replacement components appear intact at the distal tibia and proximal femur, there is suggestion of periosteal reaction at the superior-most margins of the anterior segment distal right femoral prosthesis suspicious for potential motion related reaction. Given the lack of lucency at the interface between this prosthetic component and the distal right femur, infection or inflammation must be considered. Clinically correlate further. This does not appear to be a fracture and it is unclear what relationship manipulation of the right knee under anesthesia would have to this finding. There is a the moderate suprapatellar bursa effusion as well as fluid anterior to the joint space. Prior consist skin emilia have been removed. No emphysema soft tissue changes. JOINTS: See discussion above. JOINT EFFUSION: As above. OTHER FINDINGS: None. IMPRESSION: Questionable periosteal reaction at the anterior distal femur interface with femoral prosthetic component. No classic loosening pattern appreciable however this is a worrisome finding and consider possible infection or loosening though this is not definite. Joint as well as suprapatellar bursa effusions are identified anteriorly.
--- NOTE | 2018-09-23 21:02 | OP ---
PROCEDURE DATE: 09/23/2018 PREOPERATIVE DIAGNOSIS: Postoperative stiffness. POSTOPERATIVE DIAGNOSIS: Postoperative stiffness. PROCEDURE: Right knee manipulation under anesthesia. ANESTHESIA TYPE: Sedation. EBL: None. COMPLICATIONS: None. HISTORY: The patient is a 53-year-old female who has two-month status post right total knee replacement. The patient's postoperative course was complicated by restriction in her flexion. I had offered the patient the option of manipulation under anesthesia. I reviewed the risk and benefits of the procedure with the patient in detail. The risks included but not limited to bleeding, infection, iatrogenic fracture, persistent stiffness and limited range of motion, need for further surgery, bronchitis. The patient fully comprehended the risks and benefits and opted to proceed. DESCRIPTION OF PROCEDURE: On the day of the procedure, the patient was admitted to preop holding area. A laterality sheet was completed, confirming the patient's right knee to be the correct operative site. Right knee was marked. An informed consent was signed from the patient. The patient was brought into the operating room table, placed supine. She was given conscious sedation. When adequately sedated with gentle pressure, we proceeded with manipulation under anesthesia. The knee was gently flexed and extended. The patient's range of motion improved from 5 to 70 pre-procedure to 20 to 125. The patient tolerated the procedure well without any complications. Eddie Sharfi MD
== END 2018-09-23 14:13 | disposition home or self-care (01) ==
LOC: H.OPSURG 06:34
PROVIDERS: ATTEND Orthopaedic Surgery
DX: M25.661 Stiffness of right knee, not elsewhere classified (principal); Z86.73 Personal history of transient ischemic attack (TIA), and cerebral infarction without residual deficits; E11.9 Type 2 diabetes mellitus without complications
CPT/HCPCS: 27570; 73560; 93005; J1170; J1200; J2001; J2704; J3010; J7120